=== PATIENT | female | born 1940 | race Caucasian/White ===

== ENCOUNTER 2021-08-26 21:02 | Emergency (ER) | payer MEDICARE, SELFPAY ==
[2021-08-26 21:10] VITALS: BP 156/58; PULSE 93; O2SAT 99
--- NOTE | 2021-08-26 21:23 | ECG_ITS ---
Test Reason : DIZZINESS Blood Pressure : / mmHG Vent. Rate : 092 BPM Atrial Rate : 092 BPM P-R Int : 142 ms QRS Dur : 070 ms QT Int : 344 ms P-R-T Axes : 052 -05 138 degrees QTc Int : 425 ms Artifact in tracing Normal sinus rhythm Anteroseptal infarct , age undetermined ST & T wave abnormality, consider lateral ischemia Abnormal ECG No previous ECGs available Referred By: Constanza Seay Electronically Signed By:NATIVIDAD GUADALUPE
--- NOTE | 2021-08-26 21:26 | ED.GENADULT ---
HPI - General Adult General Chief complaint: Weakness Stated complaint: weakness/leathargy fever Time Seen by Provider: 08/26/21 21:22 Source: patient, family ( spouse) and EMS Mode of arrival: EMS Limitations: no limitations History of Present Illness HPI narrative: 80-year-old female came in for evaluation of mental status change. This is a 80-year-old female who lives with her partially independent, as per for the past 2 years patient has been declining thought to be secondary to dementia, today patient was complaining of generalized weakness unable to feed herself and becoming lethargic with subjective fever, patient declined headache, no neck pain, no chest pain or shortness of breath , no coughing, no abdominal pain, no nausea, no vomiting, no diarrhea. Patient found to have a fever of 102 by EMS before arrival. Related Data Previous Rx's Medication Instructions Recorded nitrofurantoin 100 mg PO BID #14 cap 08/26/21 monohydrate/macrocrystals 100 mg capsule (Macrobid) Allergies Allergy/AdvReac Type Severity Reaction Status Date / Time No Known Allergies Allergy Verified 08/26/21 21:22 Review of Systems Review of Systems: all other systems are reviewed and are negative Constitutional: Reports as per HPI and Reports no additional constitutional complaints Eyes: Reports as per HPI and Reports no additional eye complaints Reports system reviewed and no additional complaints, except as documented Cardiovascular: Reports as per HPI and Reports no additional cardiovascular complaints Respiratory: Reports as per HPI and Reports no additional respiratory complaints Gastrointestinal: Reports as per HPI and Reports no additional gastrointestinal complaints Genitourinary: Reports no additional female genitourinary complaints Musculoskeletal: Reports no additional musculoskeletal complaints Skin/Breast: Reports system reviewed and no additional complaints, except as docu Psychiatric: Reports no additional psychiatric complaints Endocrine: Reports no additional endocrine complaints Hematologic/Lymphatic: Reports no additional hematologic/lymphatic complaints Allergic/Immunologic: Reports no additional allergic/immunologic complaints Reports system reviewed and no additional complaints, except as documented and Reports Abnormal speech present [facility] Past Medical History Medical History Diabetes Foot pain, bilateral Social History Social History Alcohol intake: never Patient Tobacco Use Status: Former Tobacco user Use of substances other than those prescribed or required for medical reasons: No Advance Directives: No Advance Directives Information Provided: No Physical Exam ED Vital Signs: Vital Signs - 24 hr 08/26/21 21:29 Temperature 101 F H Respiratory Rate 93 H Blood Pressure 147/109 H Pulse Oximetry 97 BMI result Body Mass Index 16.8 vital signs have been reviewed as appeared to be correct. Blood pressure normal. Heart rate normal. Respiration rate normal. Temperature normal. Oxygen saturation normal. Appearance: Alert. Oriented X2 place and person but not time.. No acute distress. Head: Normal external exam. Normocephalic. Atraumatic. No Anderson signs noted. No raccoon eyes noted Eyes: PERRLA. EOMI. Conjunctiva and sclera normal. Eyelids normal. ENT: TM's Normal. Pharynx normal. Uvula midline. Moist mucous membranes. No trismus noted. No drooling noted. No muffled voice noted. Neck: Normal inspection. Neck supple. FROM. No adenopathy. Thyroid Normal. No meningeal signs. No neck mass noted. CVS: Normal heart rate and rhythm. Heart sound normal. No murmurs noted. Pulses normal throughout. Respiratory: No respiratory distress. Painless inspiration. Breath sounds normal. No wheezes/rales/rhonchi noted. Chest nontender. No accessory muscle usage noted or decreased air movement noted. Abdomen: Soft and nontender. Bowel sounds normal in all 4 quadrants. No distention noted. No organomegaly noted. No visible injury noted. Back: No CVA tenderness. Full range of motion noted. Skin: Skin warm and dry. Normal skin color. Normal skin turgor. No rashes/lesions/lacerations noted. Extremities: No lower extremity edema. Extremities exhibit normal range of motion. Extremities nontender. Neuro: Oriented X 2. Cranial nerve exam: II-XII are grossly intact No motor deficit. No sensory deficit. Reflexes normal. Course Course Course Narrative: assessment and plan. 80-year-old female came in for evaluation of worsening of her baseline dementia like symptoms, patient in emergency department is refusing blood workup /X-ray/CT head and becoming uncooperative, who is also claimed to be a healthcare proxy refuse giving the patient any sedation in order to complete the workup, and he would like to take her home, patient is adamant to go home, I had decent conversation with the who is fully understood risk of signing against medical advise without doing a full workup on the patient especially when she has a fever. / patient both want to sign against medical advise. however patient show mild UTI will cover with Macrobid. Medical Decision Making Lab Data Lab results reviewed: Yes I reviewed the patient's lab results. Labs: Lab Results 08/26/21 08/26/21 Range/Units 23:02 23:02 Urine Color YELLOW Urine Appearance HAZY Urine pH 5.5 (5.0-8.0) Ur Specific [place] 1.020 (1.005-1.025) Urine Protein NEG (NEG-TRACE) MG/DL Urine Glucose (UA) >=1000 H (NEG) MG/DL Urine Ketones 5 (NEG) MG/DL Urine Blood TRACE (NEG) Urine Nitrite NEG (NEG) Ur Leukocyte Esterase TRACE H (NEG) Urine RBC 0-2 (0) /HPF Urine WBC 5-9 H (0-4) /HPF Ur Squamous Epith Cells 3+ /LPF Urine Bacteria 3+ /LPF Urine Mucus 4+ /LPF COVID-19 (EMELY) Negative (Negative) COVID-19 Clin Com See Note Discharge Plan Discharge Clinical Impression: Dementia, Acute UTI Patient Disposition: Left Against Medical Advice Instructions: Urinary Tract Infection in Women (ED) Prescriptions: New nitrofurantoin monohyd/m-cryst [Macrobid] 100 mg capsule 100 mg PO BID Qty: 14 0RF Rx Instructions: must administer with a meal/food Referrals: Dilshad Mercedes MD [Primary Care Provider] - 2 days
[2021-08-26 21:29] VITALS: BP 147/109; RESP 15; TEMP 38.3; O2SAT 97; BMI 16.8
[2021-08-26] MEDS: 0.9 % Sodium Chloride 1,000 ML 999 ML IV (23:06)
[2021-08-26 23:19] LABS: Appearance Urine HAZY; Color Urine YELLOW; Glucose Urine UA >=1000 MG/DL (NEG); Leukocyte Esterase Urine TRACE (NEG); Nitrite Urine NEG (NEG); PH 5.5 (5.0-8.0); UACC Culture Trigger YES; Urine Blood TRACE (NEG); Urine Ketones 5 MG/DL (NEG); Urine Protein NEG (NEG-TRACE)
[2021-08-26 23:23] LABS: Bacteria Urine 3+ /LPF; Mucus Urine 4+ /LPF; RBC Urine 0-2 /HPF (0); Squamous Epithelial Cell Urine 3+ /LPF
--- NOTE | 2021-08-26 23:23 | PC.NURSE ---
Patient was being very difficult with blood draw. Patient was screaming at the top of her lungs and attempting to jump out of the bed. Patient was putting staff at risk of needle stick. Phlebotomy called to draw blood.
[2021-08-26 23:26] LABS: COVID-19 Test Negative (Negative); IDNOW Serial# 55D5AD1C
--- NOTE | 2021-08-26 23:33 | PC.NURSE ---
Patient came back from the bathroom and decided that she did not want her blood drawn and wanted to leave. Patient refused to sign registration papers and despite provider explaining what his opinion was. Patient decided she did not want blood work done and the stated that if that was what she wanted to do he was ok with that.
[2021-08-27] MEDS: Nitrofurantoin Monohyd/M-Cryst 100 MG CAPSULE PO (00:15)
== END 2021-08-27 00:14 | disposition left against medical advice (07) ==
PROVIDERS: Emergency Provider Emergency Medicine; PCP Family Medicine
DX: N39.0 Urinary tract infection, site not specified (principal); F03.90 Unspecified dementia, unspecified severity, without behavioral disturbance, psychotic disturbance, mood disturbance, and anxiety; R53.1 Weakness; R50.9 Fever, unspecified; Z20.822 Contact with and (suspected) exposure to COVID-19; E11.9 Type 2 diabetes mellitus without complications
CPT/HCPCS: 81001; 87040; 87086; 87635; 93005; 96360; 99284

== ENCOUNTER 2023-01-22 10:12 | Inpatient (IN) | payer MEDICARE, SELFPAY ==
[2023-01-22] VITALS (7 sets, daily range): BP systolic 96–167; BP diastolic 49–92; PULSE 63–115; RESP 10–20; TEMP 36.2–36.9; O2SAT 92–98; BMI 19.6
--- NOTE | ~2023-01-22 | XR_ITS ---
EXAMINATION: XR ABDOMEN KUB CLINICAL INDICATION: Abdominal distention. COMPARISON: None available. TECHNIQUE: AP view of the abdomen. FINDINGS: Nonspecific gastric dilatation. Slightly prominent gaseous distention of both small and large bowel. Mild amount of stool burden in the right hemicolon and rectum. No acute osseous abnormalities. XR/XR KUB IMPRESSION: Nonspecific gastric dilatation, differential considerations include postprandial state, gastroparesis or gastric outlet obstruction. Slightly prominent gaseous distention of both small and large bowel which could be seen with ileus. Overall, nonobstructive bowel gas pattern of the small and large bowel.
--- NOTE | ~2023-01-22 | CT_ITS ---
EXAMINATION: CT HEAD WITHOUT CONTRAST CLINICAL INFORMATION: Altered mental status and delirium. COMPARISON: None available. TECHNIQUE: Contiguous axial imaging was performed from the skull base to vertex without intravenous administration of contrast. Coronal and sagittal reformatted images were obtained. This CT examination was performed using dose optimization techniques as appropriate, variously including the following: *Automated exposure control *Adjustment of mA and/or kV according to patient size (this includes techniques or standardized protocols for targeted exams where dose is matched to indication/reason for exam; i.e. extremities or head) *Use of iterative reconstruction technique DLP: 734 mGy-cm FINDINGS: There is mild widening of the cortical sulci and associated ventriculomegaly. The lateral ventricles are symmetrical. Mild periventricular microvascular changes. The third and fourth ventricles are in their normal midline position. The basilar and prepontine cisterns are unremarkable. There is no acute intra or extracerebral abnormality. There is no mass effect or midline shift. Sections through the bony calvarium are unremarkable. The orbits are intact. The paranasal sinuses are clear. The mastoid air cells are clear. CT/CT head/brain wo IV con IMPRESSION: No acute intracranial pathology.
--- NOTE | 2023-01-22 10:38 | ECG_ITS ---
Test Reason : AMS Blood Pressure : / mmHG Vent. Rate : 083 BPM Atrial Rate : 083 BPM P-R Int : 156 ms QRS Dur : 070 ms QT Int : 338 ms P-R-T Axes : 070 -27 152 degrees QTc Int : 397 ms Poor data quality, interpretation may be adversely affected Normal sinus rhythm Anterior infarct (cited on or before 26-AUG-2021) Abnormal ECG When compared with ECG of 26-AUG-2021 22:03, No significant change was found Referred By: Francie Alva Electronically Signed By:HAO SHAH
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
[2023-01-22 11:01] LABS: MANUAL DIFF FLAG NO
[2023-01-22 11:07] LABS: Basophils Percent Auto 0.4 % (0-2); Eosinophils Absolute Auto 0.1 X10*3/uL (0.0-0.4); Eosinophils Percent Auto 1.9 % (0-4); Hematocrit 39.4 % (37.0-47.0); Hemoglobin 13.3 g/dl (12.0-16.0); Imm Gran Abs Auto 0.02 X10*3/uL (0.00-0.03); Imm Gran Pct Auto 0.4 % (0.0-0.4); Lymphocytes Absolute Auto 1.1 X10*3/uL (1.2-4.9); Lymphocytes Percent Auto 20.9 % (20-40); Mean Corpuscular HGB Conc 33.8 g/dl (31.0-35.0); Mean Corpuscular Hemoglobin 29.9 pg (27.0-33.0); Mean Corpuscular Volume 88.5 fL (80.0-98.0); Mean Platelet Volume 11.2 fL (9.4-12.3); Monocytes Absolute Auto 0.4 X10*3/uL (0.1-1.2); Monocytes Percent Auto 7.2 % (2-11); Neutrophils Absolute Auto 3.6 x10*3/uL (2.0-8.3); Neutrophils Percent Auto 69.2 % (45-73); Platelet Count 242 X10*3/uL (160-400); Red Blood Count 4.45 X10*6/uL (4.20-5.50); White Blood Count 5.2 X10*3/uL (4.8-10.8)
[2023-01-22] MEDS: ondansetron HCL 4 MG/2 ML VIAL IVPUSH (11:11)
[2023-01-22 11:17] LABS: Ethanol < 10 mg/dL
[2023-01-22 11:19] LABS: Acetaminophen LAB < 17 mcg/mL (<30); Salicylate < 5.0 mg/dL (15-30)
[2023-01-22 11:23] LABS: Alanine Aminotransferase 8 U/L (0-31); Albumin Level 3.8 g/dL (3.5-5.0); Alkaline Phosphatase 76 U/L (39-117); Anion Gap 13 (12-20); Aspartate Amino Transferase 12 U/L (5-31); Bilirubin Direct 0.2 mg/dL (0.0-0.5); Bilirubin Total 0.5 mg/dL (0.0-1.0); Blood Urea Nitrogen 24 mg/dL (9-16); Calcium 9.3 mg/dL (8.4-10.2); Carbon Dioxide 24 mmol/L (22-29); Chloride 103 mmol/L (96-108); Creatinine Clr Calc Pharmacy 42.3; Estimated Glomerular Filt Rate 55; Glucose Random 389 mg/dL (60-115); Potassium 4.6 mmol/L (3.3-5.1); Sodium 135 mmol/L (135-145); Total Protein 7.1 g/dL (6.5-8.0)
[2023-01-22] MEDS: OLANZapine 10 MG VIAL IM (11:52)
--- NOTE | 2023-01-22 12:37 | PC.NURSE ---
pt restless, vomiting, appears confused and paranoid. 10mg zyprexa given to help relax pt to go to CT as she was attempting to jump out of bed, not accepting of redirection for head CT
--- NOTE | 2023-01-22 13:24 | MHC.CM.ED ---
Received case management consult from Dr Alva. Patient was found wandering out of her home. Dr Alva is concerned about patient's safety at home. Work up is still pending. PCP is listed as More Mercedes. Copy of HCP and last PCP office note obtained from [facility]. Spoke with Catalina at [facility]. Elder at Risk was filed today and just assigned to a worker. Dr Alva and Vanna HAWKINS aware. Continue to monitor for d/c needs.
[2023-01-22] MEDS: LORazepam 2 MG/ML VIAL 1 MG IVPUSH (14:12)
--- NOTE | 2023-01-22 15:01 | PC.NURSE ---
spoke with [facility] at 1501
[2023-01-22 15:28] LABS: Appearance Urine Cloudy; Color Urine Yellow; Glucose Urine UA >=1000 mg/dL (Negative); Leukocyte Esterase Urine Moderate (2+) (Negative); Nitrite Urine Negative (Negative); PH 6.5 (5.0-9.0); UMIC TRIGGER UACC YES; Urine Blood Moderate (2+) (Negative); Urine Ketones Trace mg/dL (Negative); Urine Protein Negative (Neg-Trace)
--- NOTE | 2023-01-22 15:41 | MHC.CM.ED ---
DOROTEO received telephone call x2 from Katarina at [facility]. Returned telephone call. Katarina is questioning if a HCP exists, is it invoked, does the patient have capacity and is she able to be interviewed. DOROTEO explained that I have just arrived at [facility] and was able to review medical record for filling layer up. Explained that HCP is on file and it is her Robel Farias, that there is no documentation of invoked HCP or if patient has capacity, but explained that patient is quite altered and an interview may be difficult. DOROTEO then spoke with Dr. Alva. Pt is not yet medically cleared, as her urine is pending. Dr. Alva plans to consult psych for viktor psych admission and capacity. CM will follow for any needs if cleared by psych.
[2023-01-22 15:56] LABS: Bacteria Urine 4+ (None Seen); Hyaline Casts Urine 0-2 /LPF (0-2); RBC Urine >20 /HPF (0-2); UACC Culture Trigger YES; WBC Urine 21-50 /HPF (0-5)
[2023-01-22] MEDS: cefTRIAXone sodium 1 GM in 0.9 % Sodium Chloride 50 ML IV (16:18)
--- NOTE | 2023-01-22 19:56 | PC.NURSE ---
assumed care of pt at 1900 - pt restless on stretcher tremulous to upper extremities unsure if this is patient's baseline. went home so unable to obtain proper history at this time. patient unable to answer questions appropriately. patient cleaned up and linens changed. unable to obtain blood pressure due to movement/tremors. sitter at bedside.
[2023-01-22 20:39] LABS: Amphetamine Screen Urine Not Detected (Not Detect); Barbiturates, Urine Not Detected (Not Detect); Benzodiazepines Screen Urine Not Detected (Not Detect); Cannabinoid Screen Urine Not Detected (Not Detect); Cocaine Screen Urine Not Detected (Not Detect); Fentanyl, urine Not Detected (Not Detect); Opiate Screen Urine Not Detected (Not Detect); Phencyclidine Screen Urine Not Detected (Not Detect)
--- NOTE | 2023-01-22 21:42 | PC.NURSE ---
Addendum entered by Melva Estrada 01/23/23 15:12: edit - ketamine given by ems en route to ED and not given by [facility] RN. Original Note: per care team will reevaluate patient in the morning as patient does not have capacity to participate in full assessment at this time. pt not responding to questions as pt was medicated with xzyprexa and ketamine by previous shift RNs. seeping comfortably on stretcher respirations even and unlabored. not here to obtain history. sitter in place.
--- NOTE | 2023-01-22 21:44 | MHC.CARE ---
Per Nurse Melva, Pt currently is not interviewable due to being asleep. She also has a mild UTI and just started treatment. The Care Team will assess her in the morning .
[2023-01-23 06:40] VITALS: BP 150/77; PULSE 92; TEMP 36.3; O2SAT 93
[2023-01-23 10:49] VITALS: BP 152/72; PULSE 108; RESP 20; O2SAT 93
--- NOTE | 2023-01-23 10:51 | MHC.EDTECH ---
Pt incontinent of urine, cleaned up by this PCT and SHRUTHI Tam. New sheets, linens, and repositioned. Pt resting in bed, call saavedra within reach.
--- NOTE | 2023-01-23 10:55 | PC.NURSE ---
pt remains asleep and unable to awake. pt's ams continues to worsen. PO abx ordered but unable to administer d/t inability to follow directions or safely swallow. Provider notified, IV abx odered. pt voided at this time, assist with washing and changing. pt resting in bed with sitter bedside.
--- NOTE | 2023-01-23 11:11 | PHA.MEDREC ---
Addendum entered by Delgado Johnson 01/23/23 11:14: Patient's spouse confirmed meds. Mentioned that the patient has an issue with their thyroid, but isn't taking anything for it right now. Original Note: Pharmacy Consult ? Medication Reconciliation Pharmacy has completed the medication reconciliation.
[2023-01-23] MEDS: cefTRIAXone sodium 1 GM in 0.9 % Sodium Chloride 50 ML IV (11:15)
--- NOTE | 2023-01-23 12:21 | PC.NURSE ---
pt sleeping, 1:1 at bedside. Visited with hospitalist. Per previous nurse pt has been sleeping all morning and last night, ketamine was given by EMS yesterday. property assessment monitor intact - 113 NSR, 92 O2 RA
[2023-01-23 13:30] VITALS: BP 144/92; PULSE 116; RESP 24; O2SAT 93
--- NOTE | 2023-01-23 13:58 | PC.NURSE ---
report given to floor.
[2023-01-23] MEDS: Dextrose 5 % and 0.45 % NaCl 1,000 ML 100 ML IVCONT (15:29)
--- NOTE | 2023-01-23 15:35 | PC.NURSE ---
IV on L forearm was infiltrated, new IV placed to R forearm. 5%dextrose/0.45%NS running.
--- NOTE | 2023-01-23 16:33 | PM.IMHP ---
History of Present Illness Date of Service: 01/23/23 Chief Complaint: confusion 82 yo female with undiagnosed cognitive impairment, prior UTI not on any? medications and doesn't seem to follow up with her doctor. Has had increasing behavior but also a cycle per her left the house this AM disheveled and unkempt feet covered in stool. She has no signs of trauma. was agitated with EMS and given 120mg ketamine IM en route. In ER initially required a sitter however will has been somnolent for the last shift. Will be admitted to general floor Review of Systems Review of Systems: Unable to obtain [facility] Medical History Diabetes Foot pain, bilateral Social History Alcohol intake: never Patient Tobacco Use Status: Former Tobacco user Smoked in Last 30 Days: No Use of substances other than those prescribed or required for medical reasons: No Advance Directives: Yes Advance Directives on File: Yes Advance Directives Date on File: 01/22/23 Meds Allergies Allergy/AdvReac Type Severity Reaction Status Date / Time No Known Allergies Allergy Verified 08/26/21 21:22 Active Medications: Current Medications Acetaminophen (Acetaminophen 325 Mg Tablet) 650 mg PO Q6H PRN PRN Reason: Pain, Mild (Pain Scale 1-3) Aspirin (Aspirin Enteric Coated 325 Mg Tablet.) 650 mg PO Q8H PRN PRN Reason: Chest Pain Enoxaparin Sodium (Enoxaparin Sodium 40 Mg/0.4 Ml Syringe) 40 mg SUBCUT Q24H [facility] Dextrose/Sodium Chloride (D51/2ns) 1,000 mls @ 100 mls/hr IVCONT .Q10H [facility] Last Admin: 01/23/23 15:29 Dose: 100 mls/hr Ceftriaxone Sodium 1 gm/ (Sodium Chloride) 50 mls @ 100 mls/hr IV Q24H [facility] Ondansetron HCl (Ondansetron Hcl 4 Mg/2 Ml Vial) 4 mg IVPUSH Q8H PRN PRN Reason: Nausea and Vomiting Sodium Chloride (0.9 % Sodium Chloride Flush 3 Ml Syringe) 3 ml IVFLUSH QSHIFT [facility] Home Medications Medication Instructions Recorded Confirmed Last Taken Type aspirin 325 mg tablet,delayed 650 mg PO Q8H PRN Chest Pain 01/23/23 01/23/23 Unknown History release Physical Exam Vital Signs and Narrative: Vital Signs: Last Vital Signs Temp 97.4 F 01/23/23 06:40 Pulse 116 H 01/23/23 13:30 Resp 24 H 01/23/23 13:30 BP 144/92 H 01/23/23 13:30 Pulse Ox 93 01/23/23 13:30 O2 Del Method Room Air 01/23/23 13:30 BMI result Body Mass Index 19.6 Const: Other: Somnolent but arousable Resp: Other: Clear to auscultation bilaterally. No rales rhonchi or wheezes Cardio: Other: No S4; positive S1-S2; no S3 murmurs rubs gallops GI: Other: Soft nontender nondistended normoactive bowel sounds Extrem: Other: No edema bilaterally Results Labs 01/22/23 10:55 01/22/23 10:55 Labs: Laboratory Results - last 24 hr 01/22/23 14:36 Urine Opiates Screen Not Detected Urine Fentanyl Screen Not Detected Ur Barbiturates Screen Not Detected Ur Phencyclidine Scrn Not Detected Ur Amphetamines Screen Not Detected U Benzodiazepines Scrn Not Detected Urine Cocaine Screen Not Detected U Marijuana (THC) Screen Not Detected Assessment and Plan (1) Acute UTI: Status: Acute (2) Metabolic encephalopathy: Status: Acute Plan 82-year-old female found wandering outside her house brought to ER for confusion. Agitated in route given ketamine with good effect. Has remained somnolent but arousable throughout her ER stay. Per staff is essentially advanced dementia as well and no helpful history could be obtained. In the ER urine showed active sediment for which she was given empiric ceftriaxone. She will be admitted to the general medical floor and followed there 1. Metabolic encephalopathy/UTI -continue empiric ceftriaxone -adjust as indicated by culture -follow clinical response to antibiotic therapy -further plans based on forthcoming clinical data Full code Lovenox Patient will require at least 2 midnights going forward of inpatient stay to empirically treat UTI and follow response to same as it relates to metabolic encephalopathy. This cannot be achieved a lesser acute setting Time Spent With Patient Time: Total time managing care of this patient today ____ minutes. Quality Stroke Does the patient have a stroke diagnosis?: No VTE Prior VTE?: No VTE Risk Level:: Medical - moderate - high VTE Device Contraindication: N/A - Device Ordered VTE Drug Contraindication: Treatment Not Indicated
[2023-01-23] MEDS: Enoxaparin Sodium 40 MG/0.4 ML SYRINGE SUBCUT (16:38)
[2023-01-23 16:45] VITALS: BMI 19.6
[2023-01-23 17:00] VITALS: BP 138/76; PULSE 114; RESP 20; TEMP 36; O2SAT 91
[2023-01-23 19:02] VITALS: BP 152/80; PULSE 107; RESP 20; TEMP 36.9; O2SAT 97
[2023-01-24] MEDS: Dextrose 5 % and 0.45 % NaCl 1,000 ML 100 ML IVCONT ×2 (01:50→15:23)
[2023-01-24 02:56] VITALS: BP 170/81; PULSE 103; RESP 18; TEMP 36.6; O2SAT 95
[2023-01-24 08:00] VITALS: BP 151/74; PULSE 111; RESP 18; TEMP 36.6; O2SAT 94
[2023-01-24] MEDS: LORazepam 2 MG/ML VIAL 1 MG IM (10:00)
[2023-01-24] MEDS: Haloperidol Lactate 5 MG/ML VIAL 2.5 MG IM (10:00)
[2023-01-24] MEDS: cefTRIAXone sodium 1 GM in 0.9 % Sodium Chloride 50 ML IV (11:43)
--- NOTE | 2023-01-24 12:51 | HO.PM.IMPN ---
Subjective Subjective Date of Service: 01/24/23 Interval History: No acute issues overnight. Somewhat agitated this morning Review of Systems Unable to obtain Physical Exam Vital Signs: Vital Signs: Last Vital Signs Temp 97.8 F 01/24/23 08:00 Pulse 111 H 01/24/23 08:00 Resp 18 01/24/23 08:00 BP 151/74 H 01/24/23 08:00 Pulse Ox 94 01/24/23 08:00 O2 Del Method Nasal Cannula 01/24/23 08:00 O2 Flow Rate 2 01/24/23 08:00 BMI result Body Mass Index 19.6 Const: Other: Somnolent but arousable Resp: Other: Clear to auscultation bilaterally. No rales rhonchi or wheezes Cardio: Other: No S4; positive S1-S2; no S3 murmurs rubs gallops GI: Other: Soft nontender nondistended normoactive bowel sounds Extrem: Other: No edema bilaterally Objective Data Active Medications Acetaminophen (Acetaminophen 325 Mg Tablet) 650 mg PO Q6H PRN PRN Reason: Pain, Mild (Pain Scale 1-3) Aspirin (Aspirin Enteric Coated 325 Mg Tablet.Dr) 650 mg PO Q8H PRN PRN Reason: Chest Pain Enoxaparin Sodium (Enoxaparin Sodium 40 Mg/0.4 Ml Syringe) 40 mg SUBCUT Q24H [facility] Last Admin: 01/23/23 16:38 Dose: 40 mg Documented By: ALON Dextrose/Sodium Chloride (D51/2ns) 1,000 mls @ 100 mls/hr IVCONT .Q10H [facility] Last Infusion: 01/24/23 12:33 Dose: 0 mls/hr Documented By: ISIS Ceftriaxone Sodium 1 gm/ (Sodium Chloride) 50 mls @ 100 mls/hr IV Q24H [facility] Last Infusion: 01/24/23 12:37 Dose: 0 mls/hr Documented By: ISIS Ondansetron HCl (Ondansetron Hcl 4 Mg/2 Ml Vial) 4 mg IVPUSH Q8H PRN PRN Reason: Nausea and Vomiting Sodium Chloride (0.9 % Sodium Chloride Flush 3 Ml Syringe) 3 ml IVFLUSH QSHIFT [facility] Last Admin: 01/24/23 07:17 Dose: Not Given Documented By: ISIS Non-Admin Reason: IV Running Labs 01/22/23 10:55 01/22/23 10:55 Microbiology Microbiology Results: Microbiology 01/22/23 Unknown Urine Culture - Preliminary Urine clean catch - Urine perez top Culture in progress. Assessment and Plan (1) Metabolic encephalopathy: Status: Acute (2) Acute UTI: Status: Acute (3) Dementia: Status: Acute Plan 82-year-old female found wandering outside her house brought to ER for confusion. Agitated in route given ketamine with good effect. Has remained somnolent but arousable throughout her ER stay. Per staff is essentially advanced dementia as well and no helpful history could be obtained. In the ER urine showed active sediment for which she was given empiric ceftriaxone. She will be admitted to the general medical floor and followed there 1. Metabolic encephalopathy/UTI -continue empiric ceftriaxone -adjust as indicated by culture -needed Haldol/Ativan this a.m. per behavior -start Seroquel later this stay -further plans based on forthcoming clinical data Full code [place] Will need ongoing hospitalization to rule out causes of S emboli apathy and safe placement Time Spent With Patient Time: Total time managing care of this patient today ____ minutes. Quality Stroke Does the patient have a stroke diagnosis?: No VTE Prior VTE?: No VTE Risk Level:: Medical - moderate - high VTE Device Contraindication: N/A - Device Ordered VTE Drug Contraindication: Treatment Not Indicated
--- NOTE | 2023-01-24 13:01 | MHC.CM.PN ---
Addendum entered by Annette English 01/24/23 13:12: ROSEMARY REPORTS THE PT TYPICALLY PREFERS TO BE CALLED [facility] (HER MIDDLE NAME) Original Note: PT CONFUSED AND UNABLE TO PROVIDE INFORMATION FOR HEALTH AND WELLNESS COORDINATOR CM CALLED PTS , ROSEMARY [phone] HE REPORTS THE PT LIVES AT HOME WITH HIM AND HE PROVIDES 24/7 CARE HE SAYS SHE HAS HAD INCREASED DIFFICULTY WITH [facility] FOR A FEW YEARS, BUT IT GOT MUCH WORSE OVER THE LAST FEW MONTHS HE REPORTS SHE HAS HAD NO FORMAL SERVICES SHE HAS A CANE BUT RARELY AGREES TO USE IT HCP ON FILE PCP: MICHEAL WALKER IMM DELIVERED ROSEMARY REPORTS HE FEELS HE MAY NEED SOME HELP CARING FOR THE PT AT HOME HE IS AWARE A [facility] REFERRAL HAS BEEN MADE HE IS ALSO AWARE A REFERRAL WAS SENT TO [facility] [place] FS TO DETERMINE IF PT IS ELIGIBLE FOR [place] DCP: HOME WITH [facility] AND FS REFERRALS AND RESUMPTION OF 24/7 CARE ROSEMARY WILL TRANSPORT
[2023-01-24] MEDS: Enoxaparin Sodium 40 MG/0.4 ML SYRINGE SUBCUT (15:49)
[2023-01-24 20:00] VITALS: BP 130/63; PULSE 99; RESP 17; TEMP 36.6; O2SAT 93
[2023-01-25] MEDS: Dextrose 5 % and 0.45 % NaCl 1,000 ML 100 ML IVCONT ×2 (01:12→10:14)
[2023-01-25 04:00] VITALS: BP 149/70; PULSE 111; RESP 17; TEMP 36.4; O2SAT 93
[2023-01-25] MEDS: cefTRIAXone sodium 1 GM in 0.9 % Sodium Chloride 50 ML IV (10:14)
[2023-01-25] MEDS: Haloperidol Lactate 5 MG/ML VIAL 2.5 MG IM (11:44)
--- NOTE | 2023-01-25 11:45 | HO.PM.IMPN ---
Subjective Subjective Date of Service: 01/25/23 Interval History: Quiet this a.m. however agitated towards end of morning. Review of Systems Unable to obtain Physical Exam Vital Signs: Vital Signs: Last Vital Signs Temp 97.6 F 01/25/23 04:00 Pulse 111 H 01/25/23 04:00 Resp 17 01/25/23 04:00 BP 149/70 H 01/25/23 04:00 Pulse Ox 93 01/25/23 04:00 O2 Del Method Nasal Cannula 01/25/23 04:00 O2 Flow Rate 2 01/25/23 04:00 BMI result Body Mass Index 19.6 Const: Other: Somnolent but arousable Resp: Other: Clear to auscultation bilaterally. No rales rhonchi or wheezes Cardio: Other: No S4; positive S1-S2; no S3 murmurs rubs gallops GI: Other: Soft nontender nondistended normoactive bowel sounds Extrem: Other: No edema bilaterally Objective Data Active Medications Acetaminophen (Acetaminophen 325 Mg Tablet) 650 mg PO Q6H PRN PRN Reason: Pain, Mild (Pain Scale 1-3) Aspirin (Aspirin Enteric Coated 325 Mg Tablet.Dr) 650 mg PO Q8H PRN PRN Reason: Chest Pain Enoxaparin Sodium (Enoxaparin Sodium 40 Mg/0.4 Ml Syringe) 40 mg SUBCUT Q24H [facility] Last Admin: 01/24/23 15:49 Dose: 40 mg Documented By: ISIS Dextrose/Sodium Chloride (D51/2ns) 1,000 mls @ 100 mls/hr IVCONT .Q10H [facility] Last Admin: 01/25/23 10:14 Dose: 100 mls/hr Documented By: BRIANA Ceftriaxone Sodium 1 gm/ (Sodium Chloride) 50 mls @ 100 mls/hr IV Q24H [facility] Last Infusion: 01/25/23 10:52 Dose: 0 mls/hr Documented By: BRIANA Ondansetron HCl (Ondansetron Hcl 4 Mg/2 Ml Vial) 4 mg IVPUSH Q8H PRN PRN Reason: Nausea and Vomiting Quetiapine Fumarate (Quetiapine Fumarate 25 Mg Tablet) 12.5 mg PO BID [facility] Sodium Chloride (0.9 % Sodium Chloride Flush 3 Ml Syringe) 3 ml IVFLUSH QSHIFT [facility] Last Admin: 01/25/23 07:00 Dose: Not Given Documented By: BRIANA Non-Admin Reason: IV Running Labs 01/22/23 10:55 01/22/23 10:55 Microbiology Microbiology Results: Microbiology 01/22/23 Unknown Urine Culture - Final Urine clean catch - Urine perez top Escherichia coli Strep agalactiae (Grp B) Assessment and Plan (1) Metabolic encephalopathy: Status: Acute (2) Acute UTI: Status: Acute Plan 82-year-old female found wandering outside her house brought to ER for confusion. Agitated in route given ketamine with good effect. Has remained somnolent but arousable throughout her ER stay. Per staff is essentially advanced dementia as well and no helpful history could be obtained. In the ER urine showed active sediment for which she was given empiric ceftriaxone. She will be admitted to the general medical floor and followed there 1. Metabolic encephalopathy/UTI -continue empiric ceftriaxone -adjust as indicated by culture -needed Haldol/Ativan this a.m. per behavior -start Seroquel 12.5 b.i.d. with 25 q.6 p.r.n. 2. E coli UTI (pansensitive) -ceftriaxone (2).. Switch to Ceftin when appropriate -check blood cultures Full code Lovenox Will need ongoing hospitalization to Time Spent With Patient Time: Total time managing care of this patient today ____ minutes. Quality Stroke Does the patient have a stroke diagnosis?: No VTE Prior VTE?: No VTE Risk Level:: Medical - moderate - high VTE Device Contraindication: N/A - Device Ordered VTE Drug Contraindication: Treatment Not Indicated
[2023-01-25] MEDS: Enoxaparin Sodium 40 MG/0.4 ML SYRINGE SUBCUT (13:46)
[2023-01-25 15:38] VITALS: BP 154/80; PULSE 103; RESP 18; TEMP 36.6; O2SAT 94
[2023-01-25 17:07] LABS: Alanine Aminotransferase 12 U/L (0-31); Albumin Level 3.2 g/dL (3.5-5.0); Alkaline Phosphatase 78 U/L (39-117); Anion Gap 16 (12-20); Aspartate Amino Transferase 18 U/L (5-31); Bilirubin Total 0.6 mg/dL (0.0-1.0); Blood Urea Nitrogen 38 mg/dL (9-16); Calcium 8.8 mg/dL (8.4-10.2); Carbon Dioxide 22 mmol/L (22-29); Chloride 108 mmol/L (96-108); Creatinine Clr Calc Pharmacy 25.7; Estimated Glomerular Filt Rate 31; Glucose Fasting 624 mg/dL (60-99); Potassium 4.1 mmol/L (3.3-5.1); Sodium 142 mmol/L (135-145); Total Protein 6.3 g/dL (6.5-8.0)
[2023-01-25 17:15] LABS: Glucose, Whole Blood 539 mg/dL (60-115)
[2023-01-25] MEDS: Insulin Lispro 100 UNIT/ML 3 ML VIAL 15 UNIT SUBCUT ×2 (17:18→18:16)
[2023-01-25 18:04] LABS: Glucose, Whole Blood 576 mg/dL (60-115)
[2023-01-25 19:20] LABS: Glucose, Whole Blood 407 mg/dL (60-115)
[2023-01-25 19:45] VITALS: BP 120/61; PULSE 90; RESP 17; TEMP 36.4; O2SAT 96
[2023-01-25] MEDS: QUEtiapine Fumarate 25 MG TABLET 12.5 MG PO (20:00)
[2023-01-25 23:59] VITALS: BP 134/70; PULSE 93; RESP 18; TEMP 36.3; O2SAT 95
[2023-01-26] MEDS: 0.9 % Sodium Chloride Flush 3 ML SYRINGE IVFLUSH ×3 (01:19→16:19)
[2023-01-26 05:53] LABS: Glucose, Whole Blood 287 mg/dL (60-115)
[2023-01-26 06:46] LABS: Glucose, Whole Blood 293 mg/dL (60-115)
[2023-01-26 07:27] LABS: Glucose, Whole Blood 329 mg/dL (60-115)
[2023-01-26 07:33] VITALS: BP 139/76; PULSE 100; RESP 22; TEMP 36.2; O2SAT 91
[2023-01-26 09:32] LABS: MANUAL DIFF FLAG NO
[2023-01-26 09:36] LABS: Basophils Percent Auto 0.1 % (0-2); Eosinophils Percent Auto 0.1 % (0-4); Hematocrit 45.8 % (37.0-47.0); Hemoglobin 15.1 g/dl (12.0-16.0); Imm Gran Abs Auto 0.05 X10*3/uL (0.00-0.03); Imm Gran Pct Auto 0.4 % (0.0-0.4); Lymphocytes Absolute Auto 0.8 X10*3/uL (1.2-4.9); Lymphocytes Percent Auto 5.7 % (20-40); Mean Corpuscular Hemoglobin 29.5 pg (27.0-33.0); Mean Corpuscular Volume 89.5 fL (80.0-98.0); Mean Platelet Volume 12.1 fL (9.4-12.3); Monocytes Absolute Auto 0.7 X10*3/uL (0.1-1.2); Monocytes Percent Auto 4.8 % (2-11); Neutrophils Percent Auto 88.9 % (45-73); Platelet Count 218 X10*3/uL (160-400); Red Blood Count 5.12 X10*6/uL (4.20-5.50); Red Cell Distribution Width 12.3 % (11.0-16.0); White Blood Count 13.5 X10*3/uL (4.8-10.8)
[2023-01-26 09:48] LABS: Estimated Average Glucose 283 mg/dL; Hemoglobin A1c % 11.5 % (<6.0)
[2023-01-26 10:04] LABS: Alanine Aminotransferase 15 U/L (0-31); Albumin Level 3.4 g/dL (3.5-5.0); Alkaline Phosphatase 82 U/L (39-117); Anion Gap 18 (12-20); Aspartate Amino Transferase 19 U/L (5-31); Bilirubin Total 0.7 mg/dL (0.0-1.0); Blood Urea Nitrogen 53 mg/dL (9-16); Calcium 9.3 mg/dL (8.4-10.2); Carbon Dioxide 21 mmol/L (22-29); Chloride 111 mmol/L (96-108); Creatinine Clr Calc Pharmacy 18.1; Estimated Glomerular Filt Rate 21; Potassium 3.9 mmol/L (3.3-5.1); Sodium 146 mmol/L (135-145); Total Protein 6.9 g/dL (6.5-8.0)
[2023-01-26 10:05] LABS: Anion Gap 19 (12-20); Blood Urea Nitrogen 52 mg/dL (9-16); Calcium 8.2 mg/dL (8.4-10.2); Carbon Dioxide 21 mmol/L (22-29); Chloride 111 mmol/L (96-108); Creatinine Clr Calc Pharmacy 18.4; Estimated Glomerular Filt Rate 21; Glucose Random 358 mg/dL (60-115); Potassium 3.9 mmol/L (3.3-5.1); Sodium 147 mmol/L (135-145)
[2023-01-26 10:07] LABS: Glucose Fasting 359 mg/dL (60-99)
[2023-01-26 10:18] LABS: Thyroid Stimulating Hormone 8.76 uIU/mL (0.32-4.0)
[2023-01-26] MEDS: Insulin Lispro 100 UNIT/ML 3 ML VIAL SUBCUT ×2 (10:37→18:31)
[2023-01-26 11:32] LABS: Glucose, Whole Blood 333 mg/dL (60-115)
--- NOTE | 2023-01-26 12:10 | MHC.CLN ---
NUTRITION CONSULT FOR QUESTION WEIGHT LOSS. REVIEW OF WEIGHT HX SHOWS WEIGHT 08/26/21=54.68 KG. CURRENT WEIGHT=58.4 KG. NO SIGNIFICANT WEIGHT CHANGE X APPROX 17 MONTHS. SKIN WITH NO CURRENT ISSUES NOTED. MONITOR FOR DIET ADVANCEMENT AND SKIN INTEGRITY.
[2023-01-26] MEDS: cefTRIAXone sodium 1 GM in 0.9 % Sodium Chloride 50 ML IV (12:29)
--- NOTE | 2023-01-26 13:15 | MHC.CM.PN ---
EMR REVIEWED AND PER MD ROUNDS, PT IS NOT MEDICALLY CLEARED FOR DC (ENCEPHOLOPATHY, ACUTE UTI, NEW ONET DM) THIS CM LEFT MESSAGE X 2 FOR S/O TO RETURN CALL TO DISCUSS DC PLANNING. AWAITING RETURN CALL. PER MD, S/O PLAN IS TO CONTINUE FULL TREATMENT AND HOME WHEN MEDICALLY CLEARED FOR 24/7 CARE.
[2023-01-26] MEDS: Enoxaparin Sodium 40 MG/0.4 ML SYRINGE SUBCUT (14:11)
--- NOTE | 2023-01-26 14:31 | MHC.SL.SWA ---
Speech Pathologist Impression: Risk of aspiration, oropharyngeal dysphagia Risk of Aspiration Due to: Reduced Cognition Dysphasia Diet Status: Continue NPO Liquid Consistency and Strategies for Safe Swallow: Liquid Intake Recommendation: NPO Solid Food Consistency: Dietary Recommendations: NPO Additional Modifications to Solid Foods: Pt spitting out PO. Absent swallow trigger. Recommend continue NPO at this time d/t mental status. Notified RN on floor, sent [place] message to MD and RD. RAMP SERVICE AGENT to re-evaluate tomorrow morning. Oral Medication Intake: NPO Please contact the pharmacy regarding appropriate crushable or liquid drug formulations that are available whenever modified delivery is recommended. Supervision While Eating and Drinking for Safe Swallow: PO with RAMP SERVICE AGENT Swallowing Recommended Treatments: Compens. Strategy Educat. Recommendation for Speech: Inpatient Speech Therapy Comment: RAMP SERVICE AGENT to re-evaluate tomorrow. Microbiology Lab Technician Clinican/Clinical Fellow: No Supervisory Statement: I have reviewed and agree with the student/clinical fellow's documentation: N/A Speech Language Pathologist: Sanna Landry M.A., CCC-RAMP SERVICE AGENT
[2023-01-26 15:31] VITALS: BP 150/69; PULSE 94; RESP 24; TEMP 36.2; O2SAT 93
--- NOTE | 2023-01-26 15:39 | HO.PM.IMPN ---
Subjective Subjective Date of Service: 01/27/23 Interval History: resting in bed unable to provide meaningful history due to underlying dementia,incoherent speech, moving all 4 extremities, is NPO, speech attempted swallow eval but patient had no swallow trigger speech recommend NPO due to mental status. Review of Systems unable to obtain review of system due to mental status Physical Exam Vital Signs: Vital Signs: Last Vital Signs Temp 97.2 F 01/26/23 07:33 Pulse 100 01/26/23 07:33 Resp 22 H 01/26/23 07:33 BP 139/76 01/26/23 07:33 Pulse Ox 91 L 01/26/23 07:33 O2 Del Method Room Air 01/26/23 07:33 O2 Flow Rate 3 01/25/23 23:59 BMI result Body Mass Index 19.6 Const: Other: General resting comfortably in no acute distress. Neck no JVD. CVS regular rate rhythm, Respiratory lungs clear to auscultation, no respiratory distress, no wheeze, no rhonchi. Gastrointestinal abdomen soft, nontender, bowel sounds audible Extremities no edema. Neuro moving all 4 extremity, speech garbled Skin no rash Objective Data Active Medications Acetaminophen (Acetaminophen 325 Mg Tablet) 650 mg PO Q6H PRN PRN Reason: Pain, Mild (Pain Scale 1-3) Aspirin (Aspirin Enteric Coated 325 Mg Tablet.Dr) 650 mg PO Q8H PRN PRN Reason: Chest Pain Dextrose (Dextrose 50 % 25 Gm/50 Ml Syringe) 25 gm IVPUSH Q15M PRN; Protocol PRN Reason: per Hypoglycemia Standing Ord. Enoxaparin Sodium (Enoxaparin Sodium 40 Mg/0.4 Ml Syringe) 40 mg SUBCUT Q24H [facility] Last Admin: 01/26/23 14:11 Dose: 40 mg Documented By: JARED Glucose (Glucose Gel 15 Gm Gel..Gram.) 15 gm PO Q15M PRN; Protocol PRN Reason: per Hypoglycemia Standing Ord. Ceftriaxone Sodium 1 gm/ (Sodium Chloride) 50 mls @ 100 mls/hr IV Q24H [facility] Last Infusion: 01/26/23 13:01 Dose: 0 mls/hr Documented By: JARED Insulin Human Lispro (Insulin Lispro 100 Unit/Ml 3 Ml Vial) 0 unit SUBCUT QIDACHS [facility]; Protocol Last Admin: 01/26/23 14:13 Dose: Not Given Documented By: JARED Non-Admin Reason: Physician Held Med Ondansetron HCl (Ondansetron Hcl 4 Mg/2 Ml Vial) 4 mg IVPUSH Q8H PRN PRN Reason: Nausea and Vomiting Quetiapine Fumarate (Quetiapine Fumarate 25 Mg Tablet) 12.5 mg PO BID [facility] Last Admin: 01/26/23 12:30 Dose: Not Given Documented By: JARED Non-Admin Reason: Physician Approved Sodium Chloride (0.9 % Sodium Chloride Flush 3 Ml Syringe) 3 ml IVFLUSH QSHIFT [facility] Last Admin: 01/26/23 10:39 Dose: 3 ml Documented By: JARED Labs 01/26/23 09:28 01/26/23 09:28 Labs: Laboratory Results - last 24 hr 01/25/23 01/25/23 01/25/23 15:43 17:11 18:00 MCV MCH MCHC RDW Plt Count MPV Immature Gran % (Auto) Neut % (Auto) Lymph % (Auto) [place] % (Auto) Eos % (Auto) Baso % (Auto) Lymph # (Auto) [place] # (Auto) Eos # (Auto) Baso # (Auto) Abs Immat Gran (auto) Absolute Neuts (auto) Absolute Nucleated RBC Nucleated RBC % (auto) Anion Gap 16 Estim Creat Clear Calc 25.7 Estimated GFR 31 POC Glucose 539 H* 576 H* Random Glucose Fasting Glucose 624 H* Estimat Average Glucose Hemoglobin A1c % Calcium 8.8 Total Bilirubin 0.6 AST 18 ALT 12 Alkaline Phosphatase 78 Total Protein 6.3 L Albumin 3.2 L TSH 01/25/23 01/26/23 01/26/23 19:15 05:50 06:42 MCV MCH MCHC RDW Plt Count MPV Immature Gran % (Auto) Neut % (Auto) Lymph % (Auto) [place] % (Auto) Eos % (Auto) Baso % (Auto) Lymph # (Auto) [place] # (Auto) Eos # (Auto) Baso # (Auto) Abs Immat Gran (auto) Absolute Neuts (auto) Absolute Nucleated RBC Nucleated RBC % (auto) Anion Gap Estim Creat Clear Calc Estimated GFR POC Glucose 407 H* 287 H 293 H Random Glucose Fasting Glucose Estimat Average Glucose Hemoglobin A1c % Calcium Total Bilirubin AST ALT Alkaline Phosphatase Total Protein Albumin TSH 01/26/23 01/26/23 01/26/23 07:11 09:28 09:28 MCV 89.5 MCH 29.5 MCHC 33.0 RDW 12.3 Plt Count 218 MPV 12.1 Immature Gran % (Auto) 0.4 Neut % (Auto) 88.9 H Lymph % (Auto) 5.7 L [place] % (Auto) 4.8 Eos % (Auto) 0.1 Baso % (Auto) 0.1 Lymph # (Auto) 0.8 L [place] # (Auto) 0.7 Eos # (Auto) 0.0 Baso # (Auto) 0.0 Abs Immat Gran (auto) 0.05 H Absolute Neuts (auto) 12.0 H Absolute Nucleated RBC 0.000 Nucleated RBC % (auto) 0.0 Anion Gap 18 Estim Creat Clear Calc 18.1 Estimated GFR 21 POC Glucose 329 H Random Glucose Fasting Glucose 359 H* Estimat Average Glucose Hemoglobin A1c % Calcium 9.3 Total Bilirubin 0.7 AST 19 ALT 15 Alkaline Phosphatase 82 Total Protein 6.9 Albumin 3.4 L TSH 01/26/23 01/26/23 01/26/23 09:28 09:28 11:28 MCV MCH MCHC RDW Plt Count MPV Immature Gran % (Auto) Neut % (Auto) Lymph % (Auto) [place] % (Auto) Eos % (Auto) Baso % (Auto) Lymph # (Auto) [place] # (Auto) Eos # (Auto) Baso # (Auto) Abs Immat Gran (auto) Absolute Neuts (auto) Absolute Nucleated RBC Nucleated RBC % (auto) Anion Gap 19 Estim Creat Clear Calc 18.4 Estimated GFR 21 POC Glucose 333 H Random Glucose 358 H* Fasting Glucose Estimat Average Glucose 283 Hemoglobin A1c % 11.5 H Calcium 8.2 L D Total Bilirubin AST ALT Alkaline Phosphatase Total Protein Albumin TSH 8.76 H Microbiology Microbiology Results: Microbiology 01/25/23 12:10 Blood Culture - Preliminary Blood - Venous No growth after 24 hours. 01/25/23 12:10 Blood Culture - Preliminary Blood - Venous No growth after 24 hours. Assessment and Plan (1) Hypernatremia: Status: Acute (2) MAURICIO (acute kidney injury): Status: Acute (3) Metabolic encephalopathy: Status: Acute (4) Dementia: Status: Acute (5) Acute UTI: Status: Acute Plan 82-year-old female found wandering outside her house brought to ER for confusion.? Agitated in route given ketamine with good effect.? Has remained somnolent but arousable throughout her ER stay.? Per staff is essentially advanced dementia as well and no helpful history could be obtained.? In the ER urine showed active sediment for which she was given empiric ceftriaxone.? She will be admitted to the general medical floor and followed there 1. Metabolic encephalopathy underlying undiagnosed dementia, spoke with patient's significant other Lazaro PYLEEb [phone], he informed the patient has been noted to to have gradually progressing memory impairment that has gotten worsened in last couple months and her speech has become incoherent and garbled along with decrease hearing, at baseline patient ambulates with walker. patient also has hypothyroidism currently not taking medication was also prediabetic but never to treatment. CT head showed no acute intracranial pathology. likely symptoms worsen due to UTI and hypothyroidism untreated will treat UTI , add Synthroid and follow clinical course. 2. E coli UTI (pansensitive) -ceftriaxone D3, blood cultures negative , continue IV since unable to take by mouth 3. hypothyroidism TSH elevated will place on IV levothyroxine 25 mg since patient unable to tolerate po. 4. acute on chronic kidney disease stage 3 patient status post nephrectomy at age 12, noted to have worsening renal function will place on IV fluids 100 mL/hour, obtain Nephro consult 5. diabetes mellitus type 2 noted to have elevated blood sugars in 300s hemoglobin A1c greater than 11 patient not on treatment since patient NPO will place on correction dose insulin q.6 hours 6. unspecified dementia/ dysphagia as per significant other noted to have worsening dementia, with garbled speech, recently needing direction to home bathroom or other places, wandering, requiring constant reminders dementia noticed 3 years ago and has been gradually worsening, now notedto have significant dysphagia, healthcare proxy wishes G-tube placement will consult General surgery no behavioral issues will hold off on Ativan and Haldol 5. 7. hypernatremia likely due to poor by mouth intake with increased IV fluid to 100 mL/hour obtain Nephro consult.follow bmp Full code Lovenox Will need ongoing hospitalization due to dysphagia, advanced dementia is NPO Will obtain surgical consult for G-tube placement as per request of patient healthcare proxy. Time Spent With Patient Time: Total time managing care of this patient today ____ minutes. Quality Stroke Does the patient have a stroke diagnosis?: No VTE Prior VTE?: No VTE Risk Level:: Medical - moderate - high VTE Device Contraindication: N/A - Device Ordered VTE Drug Contraindication: Treatment Not Indicated
[2023-01-26] MEDS: Dextrose 5 % and Lactated Ring 1,000 ML 100 ML IVCONT (16:14)
--- NOTE | 2023-01-26 16:49 | PM.CNGS ---
History of Present Illness Consult details Consult date: 01/26/23 Narrative: 82F afmitted three days ago for worsening confusion. She was from home and was brought to the ED because of cognitive decline, poor self hygiene and confusion. She seems to have acceleration of her dementia. She was uncooperative on admission. She is a diabetic and her HgA1C was 11. She apparently has not seen any physician in a long time. Review of Systems Review of Systems: Yes Unobtainable due to mental status PMFSH Past Medical History Medical History Diabetes Foot pain, bilateral Social History Social History Household Members: Spouse Housing: House Unable to assess alcohol history related to: Unable to respond Alcohol intake: never Patient Tobacco Use Status: Former Tobacco user Smoked in Last 30 Days: No Use of substances other than those prescribed or required for medical reasons: Unknown Currently Displaying Signs/Symptoms of Drug Intoxication Withdrawal: No Advance Directives: Yes Advance Directives on File: Yes Advance Directives Date on File: 01/22/23 Patient : No Poor oral hygiene: Yes service: No Meds Allergies Allergy/AdvReac Type Severity Reaction Status Date / Time No Known Allergies Allergy Verified 01/24/23 00:05 Active Medications: Current Medications Acetaminophen (Acetaminophen 325 Mg Tablet) 650 mg PO Q6H PRN PRN Reason: Pain, Mild (Pain Scale 1-3) Aspirin (Aspirin Enteric Coated 325 Mg Tablet.Dr) 650 mg PO Q8H PRN PRN Reason: Chest Pain Dextrose (Dextrose 50 % 25 Gm/50 Ml Syringe) 25 gm IVPUSH Q15M PRN; Protocol PRN Reason: per Hypoglycemia Standing Ord. Enoxaparin Sodium (Enoxaparin Sodium 40 Mg/0.4 Ml Syringe) 40 mg SUBCUT Q24H [facility] Last Admin: 01/26/23 14:11 Dose: 40 mg Glucose (Glucose Gel 15 Gm Gel..Gram.) 15 gm PO Q15M PRN; Protocol PRN Reason: per Hypoglycemia Standing Ord. Ceftriaxone Sodium 1 gm/ (Sodium Chloride) 50 mls @ 100 mls/hr IV Q24H [facility] Last Infusion: 01/26/23 13:01 Dose: Infused Dextrose/Lactated Ringer's (D5lr) 1,000 mls @ 100 mls/hr IVCONT .Q10H [facility] Last Admin: 01/26/23 16:14 Dose: 100 mls/hr Insulin Human Lispro (Insulin Lispro 100 Unit/Ml 3 Ml Vial) 0 unit SUBCUT QIDACHS [facility]; Protocol Last Admin: 01/26/23 14:13 Dose: Not Given Levothyroxine Sodium (Levothyroxine Sodium 100 Mcg/5 Ml Vial) 25 mcg IVPUSH DAILY@0600 [facility] Ondansetron HCl (Ondansetron Hcl 4 Mg/2 Ml Vial) 4 mg IVPUSH Q8H PRN PRN Reason: Nausea and Vomiting Sodium Chloride (0.9 % Sodium Chloride Flush 3 Ml Syringe) 3 ml IVFLUSH QSHIFT [facility] Last Admin: 01/26/23 16:19 Dose: 3 ml Home Medications Medication Instructions Recorded Confirmed Last Taken Type aspirin 325 mg tablet,delayed 650 mg PO Q8H PRN Chest Pain 01/23/23 01/23/23 Unknown History release Physical Exam Vital Signs: Vital Signs: Last Vital Signs Temp 97.2 F 01/26/23 15:31 Pulse 94 01/26/23 15:31 Resp 24 H 01/26/23 15:31 BP 150/69 H 01/26/23 15:31 Pulse Ox 93 01/26/23 15:31 O2 Del Method Room Air 01/26/23 15:31 O2 Flow Rate 3 01/25/23 23:59 BMI result Body Mass Index 19.6 Const: Other: not communicative, appears drowsy General: no acute distress Resp: Effort & Inspection: normal respiratory effort Cardio: Rate: regular rate GI: Other: no abdominal scars Palpation (GI): Soft to palpation, not firm, nontender and no guarding Results Labs 01/26/23 09:28 01/26/23 09:28 Labs: Abnormal lab results 01/25/23 01/25/23 01/25/23 Range/Units 15:43 17:11 18:00 WBC (4.8-10.8) X10*3/uL Neut % (Auto) (45-73) % Lymph % (Auto) (20-40) % Lymph # (Auto) (1.2-4.9) X10*3/uL Abs Immat Gran (auto) (0.00-0.03) X10*3/uL Absolute Neuts (auto) (2.0-8.3) x10*3/uL Sodium (135-145) mmol/L Chloride (96-108) mmol/L Carbon Dioxide (22-29) mmol/L BUN 38 H (9-16) mg/dL Creatinine 1.61 H (0.5-1.4) mg/dL POC Glucose 539 H* 576 H* (60-115) mg/dL Random Glucose (60-115) mg/dL Fasting Glucose 624 H* (60-99) mg/dL Hemoglobin A1c % (<6.0) % Calcium (8.4-10.2) mg/dL Total Protein 6.3 L (6.5-8.0) g/dL Albumin 3.2 L (3.5-5.0) g/dL TSH (0.32-4.0) uIU/mL 01/25/23 01/26/23 01/26/23 Range/Units 19:15 05:50 06:42 WBC (4.8-10.8) X10*3/uL Neut % (Auto) (45-73) % Lymph % (Auto) (20-40) % Lymph # (Auto) (1.2-4.9) X10*3/uL Abs Immat Gran (auto) (0.00-0.03) X10*3/uL Absolute Neuts (auto) (2.0-8.3) x10*3/uL Sodium (135-145) mmol/L Chloride (96-108) mmol/L Carbon Dioxide (22-29) mmol/L BUN (9-16) mg/dL Creatinine (0.5-1.4) mg/dL POC Glucose 407 H* 287 H 293 H (60-115) mg/dL Random Glucose (60-115) mg/dL Fasting Glucose (60-99) mg/dL Hemoglobin A1c % (<6.0) % Calcium (8.4-10.2) mg/dL Total Protein (6.5-8.0) g/dL Albumin (3.5-5.0) g/dL TSH (0.32-4.0) uIU/mL 01/26/23 01/26/23 01/26/23 Range/Units 07:11 09:28 09:28 WBC 13.5 H (4.8-10.8) X10*3/uL Neut % (Auto) 88.9 H (45-73) % Lymph % (Auto) 5.7 L (20-40) % Lymph # (Auto) 0.8 L (1.2-4.9) X10*3/uL Abs Immat Gran (auto) 0.05 H (0.00-0.03) X10*3/uL Absolute Neuts (auto) 12.0 H (2.0-8.3) x10*3/uL Sodium 146 H (135-145) mmol/L Chloride 111 H (96-108) mmol/L Carbon Dioxide 21 L (22-29) mmol/L BUN 53 H (9-16) mg/dL Creatinine 2.28 H (0.5-1.4) mg/dL POC Glucose 329 H (60-115) mg/dL Random Glucose (60-115) mg/dL Fasting Glucose 359 H* (60-99) mg/dL Hemoglobin A1c % (<6.0) % Calcium (8.4-10.2) mg/dL Total Protein (6.5-8.0) g/dL Albumin 3.4 L (3.5-5.0) g/dL TSH (0.32-4.0) uIU/mL 01/26/23 01/26/23 01/26/23 Range/Units 09:28 09:28 11:28 WBC (4.8-10.8) X10*3/uL Neut % (Auto) (45-73) % Lymph % (Auto) (20-40) % Lymph # (Auto) (1.2-4.9) X10*3/uL Abs Immat Gran (auto) (0.00-0.03) X10*3/uL Absolute Neuts (auto) (2.0-8.3) x10*3/uL Sodium 147 H (135-145) mmol/L Chloride 111 H (96-108) mmol/L Carbon Dioxide 21 L (22-29) mmol/L BUN 52 H (9-16) mg/dL Creatinine 2.25 H (0.5-1.4) mg/dL POC Glucose 333 H (60-115) mg/dL Random Glucose 358 H* (60-115) mg/dL Fasting Glucose (60-99) mg/dL Hemoglobin A1c % 11.5 H (<6.0) % Calcium 8.2 L D (8.4-10.2) mg/dL Total Protein (6.5-8.0) g/dL Albumin (3.5-5.0) g/dL TSH 8.76 H (0.32-4.0) uIU/mL Short CBC 01/26/23 Range/Units 09:28 WBC 13.5 H (4.8-10.8) X10*3/uL Hgb 15.1 (12.0-16.0) g/dl Hct 45.8 (37.0-47.0) % Plt Count 218 (160-400) X10*3/uL BMP 01/25/23 01/26/23 01/26/23 15:43 09: 09:28 Sodium 142 146 H 147 H Potassium 4.1 3.9 3.9 Chloride 108 111 H 111 H Carbon Dioxide 22 21 L 21 L BUN 38 H 53 H 52 H Creatinine 1.61 H 2.28 H 2.25 H Calcium 8.8 9.3 8.2 L D Liver Function 01/25/23 01/26/23 Range/Units 15:43 09:28 Total Bilirubin 0.6 0.7 (0.0-1.0) mg/dL AST 18 19 (5-31) U/L ALT 12 15 (0-31) U/L Alkaline Phosphatase 78 82 (39-117) U/L Albumin 3.2 L 3.4 L (3.5-5.0) g/dL Urine 01/22/23 Range/Units 14:36 Urine Color Yellow Urine Appearance Cloudy Urine pH 6.5 (5.0-9.0) Ur Specific [place] 1.020 (1.005-1.025) Urine Protein Negative (Neg-Trace) mg/dL Urine Glucose (UA) >=1000 H (Negative) mg/dL All other labs normal. Laboratory Results WBC 13.5 X10*3/uL (4.8-10.8) H 01/26/23 09:28 RBC 5.12 X10*6/uL (4.20-5.50) 01/26/23 09:28 Hgb 15.1 g/dl (12.0-16.0) 01/26/23 09: Hct 45.8 % (37.0-47.0) 01/26/23 09: MCV 89.5 fL (80.0-98.0) 01/26/23 09: MCH 29.5 pg (27.0-33.0) 01/26/23 09: MCHC 33.0 g/dl (31.0-35.0) 01/26/23 09: RDW 12.3 % (11.0-16.0) 01/26/23 09: Plt Count 218 X10*3/uL (160-400) 01/26/23 09: MPV 12.1 fL (9.4-12.3) 01/26/23 09: Immature Gran % (Auto) 0.4 % (0.0-0.4) 01/26/23 09: Neut % (Auto) 88.9 % (45-73) H 01/26/23 09: Lymph % (Auto) 5.7 % (20-40) L 01/26/23 09: [place] % (Auto) 4.8 % (2-11) 01/26/23 09: Eos % (Auto) 0.1 % (0-4) 01/26/23 09: Baso % (Auto) 0.1 % (0-2) 01/26/23 09: Lymph # (Auto) 0.8 X10*3/uL (1.2-4.9) L 01/26/23 09: [place] # (Auto) 0.7 X10*3/uL (0.1-1.2) 01/26/23 09: Eos # (Auto) 0.0 X10*3/uL (0.0-0.4) 01/26/23 09: Baso # (Auto) 0.0 X10*3/uL (0.0-0.2) 01/26/23 09: Abs Immat Gran (auto) 0.05 X10*3/uL (0.00-0.03) H 01/26/23 09:28 Absolute Neuts (auto) 12.0 x10*3/uL (2.0-8.3) H 01/26/23 09:28 Absolute Nucleated RBC 0.000 X10*3/uL (0.0-0.012) 01/26/23 09:28 Nucleated RBC % (auto) 0.0 /100WBC (0.0-0.2) 01/26/23 09:28 Sodium 146 mmol/L (135-145) H 01/26/23 09:28 Sodium 147 mmol/L (135-145) H 01/26/23 09:28 Potassium 3.9 mmol/L (3.3-5.1) 01/26/23 09:28 Potassium 3.9 mmol/L (3.3-5.1) 01/26/23 09:28 Chloride 111 mmol/L (96-108) H 01/26/23 09:28 Chloride 111 mmol/L (96-108) H 01/26/23 09:28 Carbon Dioxide 21 mmol/L (22-29) L 01/26/23 09:28 Carbon Dioxide 21 mmol/L (22-29) L 01/26/23 09:28 Anion Gap 18 (12-20) 01/26/23 09:28 Anion Gap 19 (12-20) 01/26/23 09:28 BUN 52 mg/dL (9-16) H 01/26/23 09:28 BUN 53 mg/dL (9-16) H 01/26/23 09:28 Creatinine 2.25 mg/dL (0.5-1.4) H 01/26/23 09:28 Creatinine 2.28 mg/dL (0.5-1.4) H 01/26/23 09:28 Estim Creat Clear Calc 18.1 01/26/23 09:28 Estim Creat Clear Calc 18.4 01/26/23 09:28 Estimated GFR 21 01/26/23 09:28 Estimated GFR 21 01/26/23 09:28 POC Glucose 333 mg/dL (60-115) H 01/26/23 11:28 Random Glucose 358 mg/dL (60-115) H* 01/26/23 09:28 Fasting Glucose 359 mg/dL (60-99) H* 01/26/23 09:28 Estimat Average Glucose 283 mg/dL 01/26/23 09:28 Hemoglobin A1c % 11.5 % (<6.0) H 01/26/23 09:28 Calcium 8.2 mg/dL (8.4-10.2) L D 01/26/23 09:28 Calcium 9.3 mg/dL (8.4-10.2) 01/26/23 09:28 Magnesium 2.0 mg/dL (1.6-2.6) 01/22/23 10:55 Total Bilirubin 0.7 mg/dL (0.0-1.0) 01/26/23 09:28 Direct Bilirubin 0.2 mg/dL (0.0-0.5) 01/22/23 10:55 AST 19 U/L (5-31) 01/26/23 09:28 ALT 15 U/L (0-31) 01/26/23 09:28 Alkaline Phosphatase 82 U/L (39-117) 01/26/23 09:28 Total Creatine Kinase 72 U/L (26-140) 01/22/23 10:56 Total Protein 6.9 g/dL (6.5-8.0) 01/26/23 09:28 Albumin 3.4 g/dL (3.5-5.0) L 01/26/23 09:28 TSH 8.76 uIU/mL (0.32-4.0) H 01/26/23 09:28 Urine Color Yellow 01/22/23 14:36 Urine Appearance Cloudy 01/22/23 14:36 Urine pH 6.5 (5.0-9.0) 01/22/23 14:36 Ur Specific [place] 1.020 (1.005-1.025) 01/22/23 14:36 Urine Protein Negative mg/dL (Neg-Trace) 01/22/23 14:36 Urine Glucose (UA) >=1000 mg/dL (Negative) H 01/22/23 14:36 Urine Ketones Trace mg/dL (Negative) 01/22/23 14:36 Urine Blood Moderate (2+) (Negative) H 01/22/23 14:36 Urine Nitrite Negative (Negative) 01/22/23 14:36 Ur Leukocyte Esterase Moderate (2+) (Negative) H 01/22/23 14:36 Urine RBC >20 /HPF (0-2) H 01/22/23 14:36 Urine WBC 21-50 /HPF (0-5) H 01/22/23 14:36 Ur Squamous Epith Cells 6-10 /HPF (0-2) 01/22/23 14:36 Urine Bacteria 4+ (None Seen) 01/22/23 14:36 Hyaline Casts 0-2 /LPF (0-2) 01/22/23 14:36 Salicylates < 5.0 mg/dL (15-30) L 01/22/23 10:56 Urine Opiates Screen Not Detected (Not Detect) 01/22/23 14:36 Urine Fentanyl Screen Not Detected (Not Detect) 01/22/23 14:36 Acetaminophen < 17 mcg/mL (<30) 01/22/23 10:56 Ur Barbiturates Screen Not Detected (Not Detect) 01/22/23 14:36 Ur Phencyclidine Scrn Not Detected (Not Detect) 01/22/23 14:36 Ur Amphetamines Screen Not Detected (Not Detect) 01/22/23 14:36 U Benzodiazepines Scrn Not Detected (Not Detect) 01/22/23 14:36 Urine Cocaine Screen Not Detected (Not Detect) 01/22/23 14:36 U Marijuana (THC) Screen Not Detected (Not Detect) 01/22/23 14:36 Ethyl Alcohol < 10 mg/dL 01/22/23 10:[address] 01/22/23 11:39 IMPRESSION: No acute intracranial pathology. KUB X-Ray 01/23/23 17:55 IMPRESSION: Nonspecific gastric dilatation, differential considerations include postprandial state, gastroparesis or gastric outlet obstruction. Slightly prominent gaseous distention of both small and large bowel which could be seen with ileus. Overall, nonobstructive bowel gas pattern of the small and large bowel. Assessment and Plan (1) Dementia: Qualifiers: Dementia behavioral or psychological symptom: with agitation Dementia severity: unspecified severity Dementia type: unspecified type Qualified Code(s): F03.911 - Unspecified dementia, unspecified severity, with agitation Status: Acute She appears to have worsening dementia, with poor oral intake. Subsequently, she has developed some metabolic encephalopathy with poor blood sugar control. I have been asked to place a PEG tube for nutrition. I will discuss this with her HCP. Her metabolic derangements should be corrected for now and her blood sugars better controlled. I will follow along while she is in the hospital. Time Spent With Patient Time: Total time managing care of this patient today ____ minutes. Procedures Date of Service Date of Service: 01/29/23
[2023-01-26 18:00] LABS: Glucose, Whole Blood 355 mg/dL (60-115)
[2023-01-26] MEDS: Acetaminophen 1,000 MG/100 ML PIGGYBACK 400 MG IV (18:36)
[2023-01-26 20:00] VITALS: BP 120/60; PULSE 78; RESP 16; TEMP 36; O2SAT 92
[2023-01-27 00:13] LABS: Glucose, Whole Blood 274 mg/dL (60-115)
[2023-01-27] MEDS: Insulin Lispro 100 UNIT/ML 3 ML VIAL SUBCUT ×5 (00:15→21:47)
[2023-01-27] MEDS: Dextrose 5 % and Lactated Ring 1,000 ML 100 ML IVCONT (01:13)
[2023-01-27 04:00] VITALS: BP 138/95; PULSE 102; RESP 18; TEMP 36.2; O2SAT 97
[2023-01-27 05:18] LABS: MANUAL DIFF FLAG NO
[2023-01-27 05:30] LABS: Basophils Percent Auto 0.1 % (0-2); Eosinophils Absolute Auto 0.2 X10*3/uL (0.0-0.4); Eosinophils Percent Auto 1.6 % (0-4); Hemoglobin 15.1 g/dl (12.0-16.0); Imm Gran Abs Auto 0.05 X10*3/uL (0.00-0.03); Imm Gran Pct Auto 0.4 % (0.0-0.4); Lymphocytes Absolute Auto 0.9 X10*3/uL (1.2-4.9); Lymphocytes Percent Auto 6.5 % (20-40); Mean Corpuscular HGB Conc 32.1 g/dl (31.0-35.0); Mean Corpuscular Hemoglobin 29.2 pg (27.0-33.0); Mean Corpuscular Volume 90.7 fL (80.0-98.0); Mean Platelet Volume 12.1 fL (9.4-12.3); Monocytes Percent Auto 7.1 % (2-11); Neutrophils Absolute Auto 11.3 x10*3/uL (2.0-8.3); Neutrophils Percent Auto 84.3 % (45-73); Platelet Count 196 X10*3/uL (160-400); Red Blood Count 5.18 X10*6/uL (4.20-5.50); Red Cell Distribution Width 12.5 % (11.0-16.0); White Blood Count 13.5 X10*3/uL (4.8-10.8)
[2023-01-27 05:47] LABS: Alanine Aminotransferase 18 U/L (0-31); Albumin Level 3.2 g/dL (3.5-5.0); Alkaline Phosphatase 83 U/L (39-117); Anion Gap 19 (12-20); Aspartate Amino Transferase 18 U/L (5-31); Bilirubin Total 0.5 mg/dL (0.0-1.0); Blood Urea Nitrogen 55 mg/dL (9-16); Calcium 8.8 mg/dL (8.4-10.2); Carbon Dioxide 20 mmol/L (22-29); Chloride 113 mmol/L (96-108); Creatinine Clr Calc Pharmacy 17.6; Estimated Glomerular Filt Rate 20; Potassium 3.6 mmol/L (3.3-5.1); Sodium 148 mmol/L (135-145); Total Protein 6.5 g/dL (6.5-8.0)
[2023-01-27 05:51] LABS: Glucose Fasting 427 mg/dL (60-99)
[2023-01-27] MEDS: Levothyroxine Sodium 100 MCG/5 ML VIAL 25 MCG IVPUSH (06:07)
[2023-01-27 07:26] VITALS: BP 126/58; PULSE 104; RESP 22; TEMP 36.4; O2SAT 97
[2023-01-27 07:38] LABS: Glucose, Whole Blood 369 mg/dL (60-115)
[2023-01-27] MEDS: Enoxaparin Sodium 30 MG/0.3 ML SYRINGE SUBCUT (09:03)
--- NOTE | 2023-01-27 10:11 | P.CONNP_ITS ---
History of Present Illness Reason for Consult Consult date: 01/28/23 Chief Complaint Chief complaint: altered mental status History of Present Illness Narrative: 82 yo female with undiagnosed cognitive impairment, prior UTI not on any? med ications and doesn't seem to follow up with her doctor. Has had increasing behavior but also a cycle per her left the house this AM disheveled and unkempt feet covered in stool. She has no signs of trauma. was agitated with EMS and given 120mg ketamine IM en route.? In ER initially required a sitter however will has been somnolent for the last shift Review of Systems Review of Systems Yes Unobtainable due to mental status PMFSH Past Medical History Medical History Diabetes Foot pain, bilateral Social History Social History Household Members: Spouse Housing: House Unable to assess alcohol history related to: Unable to respond Alcohol intake: never Patient Tobacco Use Status: Former Tobacco user Smoked in Last 30 Days: No Use of substances other than those prescribed or required for medical reasons: Unknown Currently Displaying Signs/Symptoms of Drug Intoxication Withdrawal: No Advance Directives: Yes Advance Directives on File: Yes Advance Directives Date on File: 01/22/23 Patient : No Poor oral hygiene: Yes service: No Meds Allergies Allergy/AdvReac Type Severity Reaction Status Date / Time No Known Allergies Allergy Verified 01/24/23 00:05 Active Medications: Current Medications Acetaminophen (Acetaminophen 325 Mg Tablet) 650 mg PO Q6H PRN PRN Reason: Pain, Mild (Pain Scale 1-3) Aspirin (Aspirin Enteric Coated 325 Mg Tablet.Dr) 650 mg PO Q8H PRN PRN Reason: Chest Pain Dextrose (Dextrose 50 % 25 Gm/50 Ml Syringe) 25 gm IVPUSH Q15M PRN; Protocol PRN Reason: per Hypoglycemia Standing Ord. Enoxaparin Sodium (Enoxaparin Sodium 30 Mg/0.3 Ml Syringe) 30 mg SUBCUT Q24H [facility] Last Admin: 01/27/23 09:03 Dose: 30 mg Glucose (Glucose Gel 15 Gm Gel..Gram.) 15 gm PO Q15M PRN; Protocol PRN Reason: per Hypoglycemia Standing Ord. Ceftriaxone Sodium 1 gm/ (Sodium Chloride) 50 mls @ 100 mls/hr IV Q24H [facility] Last Infusion: 01/26/23 13:01 Dose: Infused Dextrose/Lactated Ringer's (D5lr) 1,000 mls @ 100 mls/hr IVCONT .Q10H [facility] Last Admin: 01/27/23 01:13 Dose: 100 mls/hr Insulin Human Lispro (Insulin Lispro 100 Unit/Ml 3 Ml Vial) 0 unit SUBCUT Q6H [facility]; Protocol Last Admin: 01/27/23 06:07 Dose: 10 unit Levothyroxine Sodium (Levothyroxine Sodium 100 Mcg/5 Ml Vial) 25 mcg IVPUSH DAILY@0600 [facility] Last Admin: 01/27/23 06:07 Dose: 25 mcg Ondansetron HCl (Ondansetron Hcl 4 Mg/2 Ml Vial) 4 mg IVPUSH Q8H PRN PRN Reason: Nausea and Vomiting Sodium Chloride (0.9 % Sodium Chloride Flush 3 Ml Syringe) 3 ml IVFLUSH QSHIFT [facility] Last Admin: 01/27/23 09:03 Dose: Not Given Home Medications Medication Instructions Recorded Confirmed Last Taken Type aspirin 325 mg tablet,delayed 650 mg PO Q8H PRN Chest Pain 01/23/23 01/23/23 Unknown History release Physical Exam Vital Signs: Last Vital Signs Temp 97.5 F 01/27/23 07:26 Pulse 104 H 01/27/23 07:26 Resp 22 H 01/27/23 07:26 BP 126/58 L 01/27/23 07:26 Pulse Ox 97 01/27/23 07:26 O2 Del Method Nasal Cannula 01/27/23 07:26 O2 Flow Rate 2 01/27/23 07:26 BMI result Body Mass Index 19.6 Confused. Restless. Mucosa dry. Lungs was scattered rhonchi. Heart S1-S2 heard with a gallop. Abdomen soft. Ex Results Lab Results 01/27/23 05:02 01/27/23 05:02 Lab results: Chemistry 01/25/23 01/26/23 01/26/23 15:43 09: 09:28 Sodium 142 146 H 147 H Potassium 4.1 3.9 3.9 Carbon Dioxide 22 21 L 21 L BUN 38 H 53 H 52 H Creatinine 1.61 H 2.28 H 2.25 H Calcium 8.8 9.3 8.2 L D 01/27/23 05:02 Sodium 148 H Potassium 3.6 Carbon Dioxide 20 L BUN 55 H Creatinine 2.35 H Calcium 8.8 D Hematology 01/26/23 01/27/23 09:28 05:02 WBC 13.5 H 13.5 H Hgb 15.1 15.1 Plt Count 218 196 Assessment and Plan (1) MAURICIO (acute kidney injury): Status: Acute (2) Hypernatremia: Status: Acute Plan elderly woman with dementia with hypernatremia and acute kidney injury. Hypernatremia due to free water deficit. Acute kidney due to volume depletion. She might have sustained tubular injury as well. No evidence of obstruction thus far. recommendations. Keep intake more than output. Or hypertension. Next item no need for any diuretics. Continue to avoid nephrotoxins. With volume resuscitation renal function should return to baseline. If renal function does not improve over a renal ultrasonogram. Concur with current medical management Time Spent With Patient Time: Total time managing care of this patient today ____ minutes. Procedures Date of Service Date of Service: 01/28/23
--- NOTE | 2023-01-27 10:20 | P.PNGS_ITS ---
Subjective Subjective Date of Service: 01/27/23 Interval history: mental status the same still confused blood sugars not well controlled Physical Exam Vital Signs: Vital Signs: Last Vital Signs Temp 97.5 F 01/27/23 07:26 Pulse 104 H 01/27/23 07:26 Resp 22 H 01/27/23 07:26 BP 126/58 L 01/27/23 07:26 Pulse Ox 97 01/27/23 07:26 O2 Del Method Nasal Cannula 01/27/23 07:26 O2 Flow Rate 2 01/27/23 07:26 BMI result Body Mass Index 19.6 Const: Other: confused Resp: Effort & Inspection: normal respiratory effort Cardio: Rate: tachycardic GI: Palpation (GI): Soft to palpation, not firm, nontender and no guarding Objective Data Active Medications Acetaminophen (Acetaminophen 325 Mg Tablet) 650 mg PO Q6H PRN PRN Reason: Pain, Mild (Pain Scale 1-3) Aspirin (Aspirin Enteric Coated 325 Mg Tablet.Dr) 650 mg PO Q8H PRN PRN Reason: Chest Pain Dextrose (Dextrose 50 % 25 Gm/50 Ml Syringe) 25 gm IVPUSH Q15M PRN; Protocol PRN Reason: per Hypoglycemia Standing Ord. Enoxaparin Sodium (Enoxaparin Sodium 30 Mg/0.3 Ml Syringe) 30 mg SUBCUT Q24H [facility] Last Admin: 01/27/23 09:03 Dose: 30 mg Documented By: LAYO Glucose (Glucose Gel 15 Gm Gel..Gram.) 15 gm PO Q15M PRN; Protocol PRN Reason: per Hypoglycemia Standing Ord. Ceftriaxone Sodium 1 gm/ (Sodium Chloride) 50 mls @ 100 mls/hr IV Q24H [facility] Last Infusion: 01/26/23 13:01 Dose: 0 mls/hr Documented By: JARED Dextrose/Lactated Ringer's (D5lr) 1,000 mls @ 100 mls/hr IVCONT .Q10H [facility] Last Admin: 01/27/23 01:13 Dose: 100 mls/hr Documented By: CAITY Insulin Human Lispro (Insulin Lispro 100 Unit/Ml 3 Ml Vial) 0 unit SUBCUT Q6H [facility]; Protocol Last Admin: 01/27/23 06:07 Dose: 10 unit Documented By: CAITY Levothyroxine Sodium (Levothyroxine Sodium 100 Mcg/5 Ml Vial) 25 mcg IVPUSH DAILY@0600 [facility] Last Admin: 01/27/23 06:07 Dose: 25 mcg Documented By: CAITY Ondansetron HCl (Ondansetron Hcl 4 Mg/2 Ml Vial) 4 mg IVPUSH Q8H PRN PRN Reason: Nausea and Vomiting Sodium Chloride (0.9 % Sodium Chloride Flush 3 Ml Syringe) 3 ml IVFLUSH QSHIFT [facility] Last Admin: 01/27/23 09:03 Dose: Not Given Documented By: LAYO Non-Admin Reason: IV Running Labs 01/27/23 05:02 01/27/23 05:02 Labs: Laboratory Results - last 24 hr 01/26/23 01/26/23 01/27/23 11:28 17:55 00:07 MCV MCH MCHC RDW Plt Count MPV Immature Gran % (Auto) Neut % (Auto) Lymph % (Auto) [place] % (Auto) Eos % (Auto) Baso % (Auto) Lymph # (Auto) [place] # (Auto) Eos # (Auto) Baso # (Auto) Abs Immat Gran (auto) Absolute Neuts (auto) Absolute Nucleated RBC Nucleated RBC % (auto) Anion Gap Estim Creat Clear Calc Estimated GFR POC Glucose 333 H 355 H* 274 H Fasting Glucose Calcium Total Bilirubin AST ALT Alkaline Phosphatase Total Protein Albumin 01/27/23 01/27/23 01/27/23 05:02 05:02 07:24 MCV 90.7 MCH 29.2 MCHC 32.1 RDW 12.5 Plt Count 196 MPV 12.1 Immature Gran % (Auto) 0.4 Neut % (Auto) 84.3 H Lymph % (Auto) 6.5 L [place] % (Auto) 7.1 Eos % (Auto) 1.6 Baso % (Auto) 0.1 Lymph # (Auto) 0.9 L [place] # (Auto) 1.0 Eos # (Auto) 0.2 Baso # (Auto) 0.0 Abs Immat Gran (auto) 0.05 H Absolute Neuts (auto) 11.3 H Absolute Nucleated RBC 0.000 Nucleated RBC % (auto) 0.0 Anion Gap 19 Estim Creat Clear Calc 17.6 Estimated GFR 20 POC Glucose 369 H* Fasting Glucose 427 H* Calcium 8.8 D Total Bilirubin 0.5 AST 18 ALT 18 Alkaline Phosphatase 83 Total Protein 6.5 Albumin 3.2 L Microbiology Microbiology Results: Microbiology 01/25/23 12:10 Blood Culture - Preliminary Blood - Venous No growth after 24 hours. 01/25/23 12:10 Blood Culture - Preliminary Blood - Venous No growth after 24 hours. Procedures Date of Service Date of Service: 01/27/23 Progress Note: A&P Assessment and plan (1) Dementia: Status: Acute Assessment and Plan: for PEG tube placement blood sugar still not well controlled however creatinine still elevated await stabilization of metabolic derangements prior to peg tube (2) Metabolic encephalopathy: Status: Acute Time Spent With Patient Time: Total time managing care of this patient today ____ minutes. Quality Stroke Does the patient have a stroke diagnosis?: No VTE Prior VTE?: No VTE Risk Level:: Medical - moderate - high VTE Device Contraindication: N/A - Device Ordered VTE Drug Contraindication: Treatment Not Indicated
[2023-01-27] MEDS: cefTRIAXone sodium 1 GM in 0.9 % Sodium Chloride 50 ML IV (10:48)
[2023-01-27] MEDS: Sodium Chloride 0.45 % 1,000 ML 125 ML IVCONT ×2 (10:48→19:29)
[2023-01-27 11:21] LABS: Glucose, Whole Blood 307 mg/dL (60-115)
[2023-01-27] MEDS: Valproic Acid (as Sodium Salt) 250 MG in Dextrose 5 % 50 ML 52.5 MG IV (12:09)
--- NOTE | 2023-01-27 12:35 | HO.PM.IMPN ---
Subjective Subjective Date of Service: 01/27/23 Interval History: Patient remains confused unable to provide meaningful history sitter at bedside. Review of Systems Unable to obtain due to dementia. Physical Exam Vital Signs: Vital Signs: Last Vital Signs Temp 97.5 F 01/27/23 07:26 Pulse 104 H 01/27/23 07:26 Resp 22 H 01/27/23 07:26 BP 126/58 L 01/27/23 07:26 Pulse Ox 97 01/27/23 07:26 O2 Del Method Nasal Cannula 01/27/23 07:26 O2 Flow Rate 2 01/27/23 07:26 BMI result Body Mass Index 19.6 Const: Other: General? resting comfortably in no acute distress.? Neck? no JVD. CVS? regular rate rhythm, Respiratory lungs clear to auscultation, no respiratory distress, no wheeze, no rhonchi. Gastrointestinal abdomen soft, non tender, bowel sounds audible Extremities no edema. Neuro? moving all 4 extremity, speech? garbled Skin no rash Objective Data Active Medications Acetaminophen (Acetaminophen 325 Mg Tablet) 650 mg PO Q6H PRN PRN Reason: Pain, Mild (Pain Scale 1-3) Aspirin (Aspirin Enteric Coated 325 Mg Tablet.) 650 mg PO Q8H PRN PRN Reason: Chest Pain Dextrose (Dextrose 50 % 25 Gm/50 Ml Syringe) 25 gm IVPUSH Q15M PRN; Protocol PRN Reason: per Hypoglycemia Standing Ord. Enoxaparin Sodium (Enoxaparin Sodium 30 Mg/0.3 Ml Syringe) 30 mg SUBCUT Q24H COUNT INCLUDES THE [facility] Last Admin: 01/27/23 09:03 Dose: 30 mg Documented By: LAYO Glucose (Glucose Gel 15 Gm Gel..Gram.) 15 gm PO Q15M PRN; Protocol PRN Reason: per Hypoglycemia Standing Ord. Ceftriaxone Sodium 1 gm/ (Sodium Chloride) 50 mls @ 100 mls/hr IV Q24H COUNT INCLUDES THE [facility] Last Infusion: 01/27/23 11:25 Dose: 0 mls/hr Documented By: LAYO Sodium Chloride (Sodium Chloride 0.45 %) 1,000 mls @ 125 mls/hr IVCONT .Q8H COUNT INCLUDES THE [facility] Last Admin: 01/27/23 10:48 Dose: 125 mls/hr Documented By: LAYO Valproic Acid 250 mg/ Dextrose 52.5 mls @ 52.5 mls/hr IV Q12H COUNT INCLUDES THE [facility] Last Admin: 01/27/23 12:09 Dose: 52.5 mls/hr Documented By: LAYO Insulin Human Lispro (Insulin Lispro 100 Unit/Ml 3 Ml Vial) 0 unit SUBCUT Q6H COUNT INCLUDES THE [facility]; Protocol Last Admin: 01/27/23 12:26 Dose: 8 unit Documented By: LAYO Levothyroxine Sodium (Levothyroxine Sodium 100 Mcg/5 Ml Vial) 25 mcg IVPUSH DAILY@0600 COUNT INCLUDES THE [facility] Last Admin: 01/27/23 06:07 Dose: 25 mcg Documented By: CAITY Ondansetron HCl (Ondansetron Hcl 4 Mg/2 Ml Vial) 4 mg IVPUSH Q8H PRN PRN Reason: Nausea and Vomiting Sodium Chloride (0.9 % Sodium Chloride Flush 3 Ml Syringe) 3 ml IVFLUSH QSHIFT COUNT INCLUDES THE [facility] Last Admin: 01/27/23 09:03 Dose: Not Given Documented By: LAYO Non-Admin Reason: IV Running Labs 01/27/23 05:02 01/27/23 05:02 Labs: Laboratory Results - last 24 hr 01/26/23 01/27/23 01/27/23 17:55 00:07 05:02 MCV 90.7 MCH 29.2 MCHC 32.1 RDW 12.5 Plt Count 196 MPV 12.1 Immature Gran % (Auto) 0.4 Neut % (Auto) 84.3 H Lymph % (Auto) 6.5 L Yates % (Auto) 7.1 Eos % (Auto) 1.6 Baso % (Auto) 0.1 Lymph # (Auto) 0.9 L Yates # (Auto) 1.0 Eos # (Auto) 0.2 Baso # (Auto) 0.0 Abs Immat Gran (auto) 0.05 H Absolute Neuts (auto) 11.3 H Absolute Nucleated RBC 0.000 Nucleated RBC % (auto) 0.0 Anion Gap Estim Creat Clear Calc Estimated GFR POC Glucose 355 H* 274 H Fasting Glucose Calcium Total Bilirubin AST ALT Alkaline Phosphatase Total Protein Albumin 01/27/23 01/27/23 01/27/23 05:02 07:24 11:16 MCV MCH MCHC RDW Plt Count MPV Immature Gran % (Auto) Neut % (Auto) Lymph % (Auto) Yates % (Auto) Eos % (Auto) Baso % (Auto) Lymph # (Auto) Yates # (Auto) Eos # (Auto) Baso # (Auto) Abs Immat Gran (auto) Absolute Neuts (auto) Absolute Nucleated RBC Nucleated RBC % (auto) Anion Gap 19 Estim Creat Clear Calc 17.6 Estimated GFR 20 POC Glucose 369 H* 307 H Fasting Glucose 427 H* Calcium 8.8 D Total Bilirubin 0.5 AST 18 ALT 18 Alkaline Phosphatase 83 Total Protein 6.5 Albumin 3.2 L Microbiology Microbiology Results: Microbiology 01/25/23 12:10 Blood Culture - Preliminary Blood - Venous No growth after 24 hours. 01/25/23 12:10 Blood Culture - Preliminary Blood - Venous No growth after 24 hours. Assessment and Plan (1) Hypernatremia: Status: Acute (2) MAURICIO (acute kidney injury): Status: Acute (3) Metabolic encephalopathy: Status: Acute (4) Dementia: Status: Acute (5) Acute UTI: Status: Acute Plan 82-year-old female found wandering outside her house brought to ER for confusion.? Agitated in route given ketamine with good effect.? Has remained somnolent but arousable throughout her ER stay.? Per staff is essentially advanced dementia as well and no helpful history could be obtained.? In the ER urine showed active sediment for which she was given empiric ceftriaxone.? She will be admitted to the general medical floor and followed there 1. Metabolic encephalopathy underlying undiagnosed dementia, gradually progressing has gotten worsened in last few months, speech has become incoherent and garbled along with decrease hearing, at baseline patient ambulates with walker. Likely worsening symptoms due to UTI and hypothyroidism Continue IV antibiotic for UTI and IV levothyroxine , follow clinical course Will add Depakote for behavioral issues 2. E coli UTI (pansensitive) -ceftriaxone D4, blood cultures negative , continue IV since unable to take by mouth 3. hypothyroidism TSH elevated , on IV levothyroxine 25 mg , recheck TSH in 6 weeks 4. acute on chronic kidney disease stage 3 patient status post nephrectomy at age 12, case discussed with Nephrology will place patient on half-normal saline at 100 mL/hour if no improvement in renal function obtain renal ultrasound to rule out obstruction 5. diabetes mellitus type 2 noted to have elevated blood sugars in 300s hemoglobin A1c greater than 11 patient not on treatment ,on correction dose insulin q.6 hours, changed to q.i.d. a.c. 6. dysphagia seen by speech therapy today they recommend pureed and thin liquid diet , earlier patient was evaluated by General surgery for G-tube placement since patient was made NPO, significant other/healthcare proxy agreed for G-tube placement, follow-patient closely for by mouth intake, if tolerated by mouth will cancel G-tube 7. hypernatremia likely due to poor by mouth intake , continue IV fluid to 100 mL/hour follow bmp. Full code Lovenox Will need ongoing hospitalization due to dysphagia, advanced dementia possible need for G-tube placement as per request of patient healthcare proxy. Time Spent With Patient Time: Total time managing care of this patient today ____ minutes. Quality Stroke Does the patient have a stroke diagnosis?: No VTE Prior VTE?: No VTE Risk Level:: Medical - moderate - high VTE Device Contraindication: N/A - Device Ordered VTE Drug Contraindication: Treatment Not Indicated
[2023-01-27 13:34] VITALS: PULSE 90; TEMP 36.4; O2SAT 94
[2023-01-27 15:26] VITALS: BP 139/79; PULSE 98; RESP 22; TEMP 36.5; O2SAT 95
[2023-01-27 16:33] LABS: Glucose, Whole Blood 220 mg/dL (60-115)
--- NOTE | 2023-01-27 17:29 | PC.NURSE ---
patient rtefused to swallow her main meal but did swallow pudding with ALEKSANDRA Aguillon frequently reminding pt to swallow,patient also able to swallow sips of apple juice,patient positioned upright ,aspiration precautions followed
[2023-01-27 19:15] VITALS: BP 118/61; PULSE 94; RESP 20; TEMP 36.6; O2SAT 99
[2023-01-27 19:29] LABS: Glucose, Whole Blood 304 mg/dL (60-115)
[2023-01-27] MEDS: Valproic Acid (as Sodium Salt) 125 MG in Dextrose 5 % 50 ML 52.5 MG IV (20:42)
[2023-01-27 21:39] LABS: Glucose, Whole Blood 260 mg/dL (60-115)
[2023-01-28 03:08] VITALS: BP 128/90; PULSE 102; RESP 18; TEMP 36.6; O2SAT 92
[2023-01-28] MEDS: Sodium Chloride 0.45 % 1,000 ML 125 ML IVCONT ×3 (03:23→17:41)
[2023-01-28] MEDS: Levothyroxine Sodium 100 MCG/5 ML VIAL 25 MCG IVPUSH (05:52)
[2023-01-28 06:02] LABS: Hematocrit 44.6 % (37.0-47.0); Hemoglobin 14.3 g/dl (12.0-16.0); Mean Corpuscular HGB Conc 32.1 g/dl (31.0-35.0); Mean Corpuscular Hemoglobin 29.3 pg (27.0-33.0); Mean Corpuscular Volume 91.4 fL (80.0-98.0); Mean Platelet Volume 12.1 fL (9.4-12.3); Platelet Count 163 X10*3/uL (160-400); Red Blood Count 4.88 X10*6/uL (4.20-5.50); Red Cell Distribution Width 12.6 % (11.0-16.0); White Blood Count 12.2 X10*3/uL (4.8-10.8)
[2023-01-28 06:18] LABS: Anion Gap 16 (12-20); Blood Urea Nitrogen 46 mg/dL (9-16); Calcium 8.9 mg/dL (8.4-10.2); Carbon Dioxide 22 mmol/L (22-29); Chloride 115 mmol/L (96-108); Creatinine Clr Calc Pharmacy 19.1; Estimated Glomerular Filt Rate 22; Glucose Random 297 mg/dL (60-115); Potassium 3.9 mmol/L (3.3-5.1); Sodium 149 mmol/L (135-145)
[2023-01-28 07:02] VITALS: BP 141/95; PULSE 102; RESP 18; TEMP 36.3; O2SAT 93
[2023-01-28 07:32] LABS: Glucose, Whole Blood 288 mg/dL (60-115)
[2023-01-28] MEDS: Insulin Lispro 100 UNIT/ML 3 ML VIAL SUBCUT ×3 (07:47→20:49)
[2023-01-28] MEDS: 0.9 % Sodium Chloride Flush 3 ML SYRINGE IVFLUSH ×2 (07:48→23:38)
[2023-01-28] MEDS: Enoxaparin Sodium 30 MG/0.3 ML SYRINGE SUBCUT (07:48)
[2023-01-28] MEDS: Valproic Acid (as Sodium Salt) 125 MG in Dextrose 5 % 50 ML 51.25 MG IV ×2 (07:49→20:50)
--- NOTE | 2023-01-28 10:29 | PM.PNNEP ---
Subjective Subjective Date of Service: 01/29/23 Interval history: Events noted Physical Exam Vital Signs: Vital Signs: Last Vital Signs Temp 97.3 F 01/28/23 07:02 Pulse 102 H 01/28/23 07:02 Resp 18 01/28/23 07:02 BP 141/95 H 01/28/23 07:02 Pulse Ox 93 01/28/23 07:02 O2 Del Method Room Air 01/28/23 07:02 O2 Flow Rate 2 01/27/23 07:26 BMI result Body Mass Index 19.6 Const: Other: General? resting comfortably in no acute distress.? Neck? no JVD. CVS? regular rate rhythm, Respiratory lungs clear to auscultation, no respiratory distress, no wheeze, no rhonchi. Gastrointestinal abdomen soft, non tender, bowel sounds audible Extremities no edema. Neuro? moving all 4 extremity, speech? garbled Skin no rash Objective Data Labs 01/28/23 05:56 01/28/23 05:56 Labs: Laboratory Results - last 24 hr 01/27/23 01/27/23 01/27/23 11:16 16:24 19:22 WBC RBC Hgb Hct MCV MCH MCHC RDW Plt Count MPV Absolute Nucleated RBC Nucleated RBC % (auto) Sodium Potassium Chloride Carbon Dioxide Anion Gap BUN Creatinine Estim Creat Clear Calc Estimated GFR POC Glucose 307 H 220 H 304 H Random Glucose Calcium 01/27/23 01/28/23 01/28/23 21:35 05:56 05:56 WBC 12.2 H RBC 4.88 Hgb 14.3 Hct 44.6 MCV 91.4 MCH 29.3 MCHC 32.1 RDW 12.6 Plt Count 163 MPV 12.1 Absolute Nucleated RBC 0.000 Nucleated RBC % (auto) 0.0 Sodium 149 H Potassium 3.9 Chloride 115 H Carbon Dioxide 22 Anion Gap 16 BUN 46 H Creatinine 2.16 H Estim Creat Clear Calc 19.1 Estimated GFR 22 POC Glucose 260 H Random Glucose 297 H Calcium 8.9 01/28/23 07:26 WBC RBC Hgb Hct MCV MCH MCHC RDW Plt Count MPV Absolute Nucleated RBC Nucleated RBC % (auto) Sodium Potassium Chloride Carbon Dioxide Anion Gap BUN Creatinine Estim Creat Clear Calc Estimated GFR POC Glucose 288 H Random Glucose Calcium Microbiology Microbiology Results: Microbiology 01/25/23 12:10 Blood - Venous Blood Culture - Preliminary No growth after 48 hours. 01/25/23 12:10 Blood - Venous Blood Culture - Preliminary No growth after 48 hours. 01/22/23 Unknown Urine clean catch - Urine perez top Urine Culture - Final Escherichia coli Strep agalactiae (Grp B) Procedures Date of Service Date of Service: 01/29/23 Assessment & Plan Assessment and plan (1) MAURICIO (acute kidney injury): Status: Acute (2) Hypernatremia: Status: Acute Plan elderly woman with dementia with hypernatremia and acute kidney injury. Hypernatremia due to free water deficit. Acute kidney due to volume depletion. She might have sustained tubular injury as well. No evidence of obstruction thus far. recommendations. Keep intake more than output. with 1/2NS Continue to avoid nephrotoxins. With volume resuscitation renal function should return to baseline. If renal function does not improve over a renal ultrasonogram. Concur with current medical management Time Spent With Patient Time: Total time managing care of this patient today ____ minutes. Progress Note: Quality Stroke Does the patient have a stroke diagnosis?: No
[2023-01-28 11:09] LABS: Glucose, Whole Blood 215 mg/dL (60-115)
[2023-01-28] MEDS: cefTRIAXone sodium 1 GM in 0.9 % Sodium Chloride 50 ML IV (11:10)
--- NOTE | 2023-01-28 12:12 | PC.NURSE ---
Pt restless and moaning. Keeps eyes closed. Attempted to feed breakfast and lunch, unable to comprehend swallowing. Food had to bed removed from mouth. Pt unsafe to feed at this time.
[2023-01-28 13:22] VITALS: BMI 19.6
--- NOTE | 2023-01-28 13:30 | MHC.SL.SWA ---
Risk of Aspiration Due to: Reduced Cognition Dysphasia Diet Status: DOWNGRADE to NPO Liquid Consistency and Strategies for Safe Swallow: Liquid Intake Recommendation: NPO Solid Food Consistency: Dietary Recommendations: NPO Oral Medication Intake: NPO Please contact the pharmacy regarding appropriate crushable or liquid drug formulations that are available whenever modified delivery is recommended. Swallowing Recommended Treatments: Compens. Strategy Educat. Recommendation for Speech: Inpatient Speech Therapy Recommend DOWNGRADE to NPO d/t persistent inability to swallow throughout the day for neither FIREWALL ADMINISTRATOR or nursing. FIREWALL ADMINISTRATOR will re-eval tomorrow. Finishing Machine Operator Clinican/Clinical Fellow: No Supervisory Statement: I have reviewed and agree with the student/clinical fellow's documentation: N/A Speech Language Pathologist: Melva Coronado M.A., CCC-FIREWALL ADMINISTRATOR
--- NOTE | 2023-01-28 13:57 | MHC.CLN ---
NUTRITION PATIENT WAS NPO FROM 01/23-01/27. DIET ADVANCED TO DIABETIC 2000 KCAL, PUREE CONSISTENCY. PER SALES AND MARKETING AGENT, NOT SWALLOWING AND DOWNGRADE TO NPO 01/28. REVIEW OF WEIGHT HX SHOWS NO SIGNIFICANT WEIGHT CHANGE X APPROX 17 MONTHS. LABS REVIEWED. A1C 01/26=11.5. FOLLOW FOR INTAKE, LABS, AND POSSIBLE G TUBE PLACEMENT.
[2023-01-28 15:38] VITALS: BP 140/62; PULSE 81; RESP 20; TEMP 36; O2SAT 93
--- NOTE | 2023-01-28 15:54 | P.PNIM_ITS ---
Subjective Subjective Date of Service: 01/29/23 Interval History: Patient remains pleasantly confused slept only 2 hours last night, tossing and turning in bed refusing to eat, keep food in mouth and does not swallow, pushing away sitter, patient was able to eat pudding yesterday. Review of Systems Unable to obtain review of system due to mental status. Physical Exam Vital Signs: Vital Signs: Last Vital Signs Temp 96.8 F 01/28/23 15:38 Pulse 81 01/28/23 15:38 Resp 20 01/28/23 15:38 BP 140/62 H 01/28/23 15:38 Pulse Ox 93 01/28/23 15:38 O2 Del Method Nasal Cannula 01/28/23 15:38 O2 Flow Rate 2 01/28/23 15:38 BMI result Body Mass Index 19.6 Const: Other: General? restless , incoherent speec h, pushing away si tters, later noted to be somnolent.? Neck? no JVD. CVS ? regular rate rhy thm, Respiratory l ungs clear to ausc ultation, no respi ratory distress, n o wheeze, no rhonc hi. Gastrointestin al abdomen soft, b owel sounds audibl e Extremities no e ana rosa. Neuro? movin g all 4 extremity, speech? garbled S kin no rash Objective Data Active Medications Acetaminophen (Acetaminophen 325 Mg Tablet) 650 mg PO Q6H PRN PRN Reason: Pain, Mild (Pain Scale 1-3) Aspirin (Aspirin Enteric Coated 325 Mg Tablet.) 650 mg PO Q8H PRN PRN Reason: Chest Pain Dextrose (Dextrose 50 % 25 Gm/50 Ml Syringe) 25 gm IVPUSH Q15M PRN; Protocol PRN Reason: per Hypoglycemia Standing Ord. Enoxaparin Sodium (Enoxaparin Sodium 30 Mg/0.3 Ml Syringe) 30 mg SUBCUT Q24H [facility] Last Admin: 01/28/23 07:48 Dose: 30 mg Documented By: BEBE Glucose (Glucose Gel 15 Gm Gel..Gram.) 15 gm PO Q15M PRN; Protocol PRN Reason: per Hypoglycemia Standing Ord. Ceftriaxone Sodium 1 gm/ (Sodium Chloride) 50 mls @ 100 mls/hr IV Q24H [facility] Last Infusion: 01/28/23 11:58 Dose: 100 mls/hr Documented By: BEBE Sodium Chloride (Sodium Chloride 0.45 %) 1,000 mls @ 125 mls/hr IVCONT .Q8H [facility] Last Admin: 01/28/23 10:45 Dose: 125 mls/hr Documented By: BEBE Valproic Acid 125 mg/ Dextrose 51.25 mls @ 52.5 mls/hr IV Q12H [facility] Last Infusion: 01/28/23 09:12 Dose: 51.25 mls/hr Documented By: BEBE Insulin Human Lispro (Insulin Lispro 100 Unit/Ml 3 Ml Vial) 0 unit SUBCUT QIDACHS [facility]; Protocol Last Admin: 01/28/23 11:15 Dose: 4 unit Documented By: BEBE Levothyroxine Sodium (Levothyroxine Sodium 100 Mcg/5 Ml Vial) 25 mcg IVPUSH DAILY@0600 [facility] Last Admin: 01/28/23 05:52 Dose: 25 mcg Documented By: ENE Ondansetron HCl (Ondansetron Hcl 4 Mg/2 Ml Vial) 4 mg IVPUSH Q8H PRN PRN Reason: Nausea and Vomiting Sodium Chloride (0.9 % Sodium Chloride Flush 3 Ml Syringe) 3 ml IVFLUSH QSHIFT [facility] Last Admin: 01/28/23 15:15 Dose: Not Given Documented By: ELINOR Non-Admin Reason: IV Running Labs 01/28/23 05:56 01/28/23 05:56 Labs: Laboratory Results - last 24 hr 01/27/23 01/27/23 01/27/23 16:24 19:22 21:35 MCV MCH MCHC RDW Plt Count MPV Absolute Nucleated RBC Nucleated RBC % (auto) Anion Gap Estim Creat Clear Calc Estimated GFR POC Glucose 220 H 304 H 260 H Random Glucose Calcium 01/28/23 01/28/23 01/28/23 05:56 05:56 07:26 MCV 91.4 MCH 29.3 MCHC 32.1 RDW 12.6 Plt Count 163 MPV 12.1 Absolute Nucleated RBC 0.000 Nucleated RBC % (auto) 0.0 Anion Gap 16 Estim Creat Clear Calc 19.1 Estimated GFR 22 POC Glucose 288 H Random Glucose 297 H Calcium 8.9 01/28/23 11:04 MCV MCH MCHC RDW Plt Count MPV Absolute Nucleated RBC Nucleated RBC % (auto) Anion Gap Estim Creat Clear Calc Estimated GFR POC Glucose 215 H Random Glucose Calcium Microbiology Microbiology Results: Microbiology 01/25/23 12:10 Blood Culture - Preliminary Blood - Venous No growth after 48 hours. 01/25/23 12:10 Blood Culture - Preliminary Blood - Venous No growth after 48 hours. Assessment and Plan (1) Hypernatremia: Status: Acute (2) MAURICIO (acute kidney injury): Status: Acute (3) Metabolic encephalopathy: Status: Acute (4) Dementia: Status: Acute (5) Acute UTI: Status: Acute Plan 82-year-old female found wandering outside her house brought to ER for confusion.? Agitated in route given ketamine with good effect.? Has remained somnolent but arousable throughout her ER stay.? Per staff is essentially advanced dementia as well and no helpful history could be obtained.? In the ER urine showed active sediment for which she was given empiric ceftriaxone.? She will be admitted to the general medical floor and followed there 1. Metabolic encephalopathy underlying undiagnosed dementia, gradually progressing has gotten worsened in last few months, speech has become incoherent and garbled along with decrease hearing, at baseline patient ambulates with walker. Patient has received 5 days of iv antibiotic for UTI, with no improvement in symptoms likely symptoms due to progression of dementia on iv ceftriaxone and IV levothyroxine , follow clinical course Will continue IV Depakote for behavioral issues Spoke with patient's significant other Robel Farias and updated him regarding patient's current clinical condition with advanced dementia, behavioral issues poor comprehension unable to redirect he wishes her to be full code, and wishes her to be back to her baseline status with ability to ambulate and eat ,explained to him that patient dementia is progressing and she seems to be at end-stage with speech impairment ,worsening confusion but he is insistent on G-tube placement and continued treatment for acute issues. 2. E coli UTI (pansensitive) -ceftriaxone D5, blood cultures negative , continue IV since unable to take by mouth DC antibiotic after today's dose 3. hypothyroidism TSH elevated , on IV levothyroxine 25 mg , recheck TSH in 6 weeks 4. acute on chronic kidney disease stage 3 patient status post nephrectomy at age 12, renal function gradually improving,continue half-normal saline at 100 mL/hour , follow BMP 5. diabetes mellitus type 2 noted to have elevated blood sugars in 300s hemoglobin A1c greater than 11 patient not on treatment ,on correction dose insulin q.6 hours, changed to q.i.d. a.c. 6. dysphagia seen by speech therapy and was placed on pureed and thin liquid diet yesterday which patient tolerated but again today patient is refusing to eat keeping food in the mouth that has to be removed call patient's who is the healthcare proxy again today and informed him about patient's clinical condition with worsening dementia and poor quality of life that she should be changed to DNR/hospice/STATE EDITOR but he is adamant that that patient showed remain full code and wishes for G-tube placement. 7. hypernatremia likely due to poor by mouth intake , continue IV fluid to 100 mL/hour follow bmp. Healthcare proxy invoked, since patient has advanced dementia and unable to make medical decisions patient's healthcare proxy is Robel Farias. Full code Lovenox Will need ongoing hospitalization due to dysphagia, advanced dementia possible need for G-tube placement as per request of patient healthcare proxy. Time Spent With Patient Time: Total time managing care of this patient today ____ minutes. Quality Stroke Does the patient have a stroke diagnosis?: No VTE Prior VTE?: No VTE Risk Level:: Medical - moderate - high VTE Device Contraindication: N/A - Device Ordered VTE Drug Contraindication: Treatment Not Indicated
[2023-01-28 16:13] LABS: Glucose, Whole Blood 139 mg/dL (60-115)
[2023-01-28 19:24] VITALS: BP 128/60; PULSE 94; RESP 18; TEMP 36.3; O2SAT 94
[2023-01-28 20:25] LABS: Glucose, Whole Blood 179 mg/dL (60-115)
[2023-01-29] VITALS (12 sets, daily range): BP systolic 116–173; BP diastolic 56–88; PULSE 76–95; RESP 16–20; TEMP 36.1–36.4; O2SAT 90–100
[2023-01-29] MEDS: Sodium Chloride 0.45 % 1,000 ML 125 ML IVCONT ×2 (01:39→06:02)
[2023-01-29 05:43] LABS: Hemoglobin 12.5 g/dl (12.0-16.0); Mean Corpuscular HGB Conc 32.1 g/dl (31.0-35.0); Mean Corpuscular Hemoglobin 29.6 pg (27.0-33.0); Mean Corpuscular Volume 92.2 fL (80.0-98.0); Mean Platelet Volume 12.3 fL (9.4-12.3); Platelet Count 146 X10*3/uL (160-400); Red Blood Count 4.23 X10*6/uL (4.20-5.50); Red Cell Distribution Width 12.7 % (11.0-16.0); White Blood Count 10.2 X10*3/uL (4.8-10.8)
[2023-01-29] MEDS: Enoxaparin Sodium 30 MG/0.3 ML SYRINGE SUBCUT (06:01)
[2023-01-29] MEDS: Levothyroxine Sodium 100 MCG/5 ML VIAL 25 MCG IVPUSH (06:01)
[2023-01-29 06:08] LABS: Anion Gap 15 (12-20); Blood Urea Nitrogen 27 mg/dL (9-16); Calcium 8.1 mg/dL (8.4-10.2); Carbon Dioxide 19 mmol/L (22-29); Chloride 116 mmol/L (96-108); Creatinine Clr Calc Pharmacy 49.2; Estimated Glomerular Filt Rate > 60; Glucose Random 215 mg/dL (60-115); Potassium 3.5 mmol/L (3.3-5.1); Sodium 146 mmol/L (135-145)
[2023-01-29] MEDS: Valproic Acid (as Sodium Salt) 125 MG in Dextrose 5 % 50 ML 52.5 MG IV ×2 (07:29→20:21)
--- NOTE | 2023-01-29 07:33 | P.CDIM_ITS ---
PROVIDER RESPONSE TEXT: To clarify, the appropriate diagnosis supported by the clinical indicators: Diabetes mellitus Type 2 with hyperglycemia QUERY TEXT: PHYSICIAN'S DOCUMENTATION REQUEST Date of Query: 01/27/2023 09:12 AM EDT Patient Name: Josafat Keys Admit Date: 01/23/2023 Dear Krista Schultz, A review of the medical record indicates additional documentation may be needed. Please review below and update the documentation accordingly. Clinical Indicators: LABS: POC glucose 539 H 335 H Insulin Patient not taking medications, was also prediabetic but never treated. PN: Diabetes mellitus type 2 noted elevated blood sugars in 300's-will place on correction dose insul in q.6 hours, Please clarify the following regarding the Complications of Diabetes Mellitus (DM): Diabetes mellitus Type 2 with hyperglycemia Other please specify Other (explain)Clinically unable to determine (explain)Thank you, Vianney Hurley, CCS, CDIS Use of terms such as suspected, likely, concern for, or probable (associated with a specific diagnosi s that is being evaluated, monitored, or treated as if it exists) are acceptable and can be coded in the inpatient se tting, when documented at the time of discharge. Please use your independent medical judgment in providing your response. THIS QUERY IS PART OF THE PERMANENT MEDICAL RECORD
[2023-01-29 07:37] LABS: Glucose, Whole Blood 200 mg/dL (60-115)
[2023-01-29] MEDS: 0.9 % Sodium Chloride Flush 3 ML SYRINGE IVFLUSH (07:41)
--- NOTE | 2023-01-29 07:55 | P.PNGS_ITS ---
Subjective Subjective Date of Service: 02/03/23 Interval history: I was informed by Hospitalist service yesterday to proceed with PEG placement as per nursing staff , pt not eating at all remains confused Physical Exam Vital Signs: Vital Signs: Last Vital Signs Temp 97.0 F 01/29/23 06:59 Pulse 95 01/29/23 06:59 Resp 18 01/29/23 06:59 BP 116/56 L 01/29/23 06:59 Pulse Ox 94 01/29/23 06:59 O2 Del Method Room Air 01/29/23 06:59 O2 Flow Rate 2 01/28/23 15:38 BMI result Body Mass Index 19.6 Const: Other: confused, not communicative, appears restless Resp: Effort & Inspection: normal respiratory effort Cardio: Rate: regular rate GI: Other: no surgical scars Inspection: No distended Palpation (GI): Soft to palpation, not firm and no guarding Objective Data Active Medications Acetaminophen (Acetaminophen 325 Mg Tablet) 650 mg PO Q6H PRN PRN Reason: Pain, Mild (Pain Scale 1-3) Aspirin (Aspirin Enteric Coated 325 Mg Tablet.Dr) 650 mg PO Q8H PRN PRN Reason: Chest Pain Dextrose (Dextrose 50 % 25 Gm/50 Ml Syringe) 25 gm IVPUSH Q15M PRN; Protocol PRN Reason: per Hypoglycemia Standing Ord. Enoxaparin Sodium (Enoxaparin Sodium 30 Mg/0.3 Ml Syringe) 30 mg SUBCUT Q24H [facility] Last Admin: 01/29/23 06:01 Dose: 30 mg Documented By: DARLEEN Glucose (Glucose Gel 15 Gm Gel..Gram.) 15 gm PO Q15M PRN; Protocol PRN Reason: per Hypoglycemia Standing Ord. Ceftriaxone Sodium 1 gm/ (Sodium Chloride) 50 mls @ 100 mls/hr IV Q24H [facility] Last Infusion: 01/28/23 11:58 Dose: 100 mls/hr Documented By: BEBE Sodium Chloride (Sodium Chloride 0.45 %) 1,000 mls @ 125 mls/hr IVCONT .Q8H [facility] Last Admin: 01/29/23 06:02 Dose: 125 mls/hr Documented By: DARLEEN Valproic Acid 125 mg/ Dextrose 51.25 mls @ 52.5 mls/hr IV Q12H [facility] Last Admin: 01/29/23 07:29 Dose: 52.5 mls/hr Documented By: BEBE Insulin Human Lispro (Insulin Lispro 100 Unit/Ml 3 Ml Vial) 0 unit SUBCUT QIDACHS [facility]; Protocol Last Admin: 01/29/23 07:34 Dose: Not Given Documented By: BEBE Non-Admin Reason: NPO Levothyroxine Sodium (Levothyroxine Sodium 100 Mcg/5 Ml Vial) 25 mcg IVPUSH DAILY@0600 [facility] Last Admin: 01/29/23 06:01 Dose: 25 mcg Documented By: DARLEEN Ondansetron HCl (Ondansetron Hcl 4 Mg/2 Ml Vial) 4 mg IVPUSH Q8H PRN PRN Reason: Nausea and Vomiting Sodium Chloride (0.9 % Sodium Chloride Flush 3 Ml Syringe) 3 ml IVFLUSH QSHIFT [facility] Last Admin: 01/29/23 07:41 Dose: 3 ml Documented By: BEBE Labs 01/29/23 05:04 01/29/23 05:04 Labs: Laboratory Results - last 24 hr 01/28/23 01/28/23 01/28/23 11:04 16:05 20:15 MCV MCH MCHC RDW Plt Count MPV Absolute Nucleated RBC Nucleated RBC % (auto) Anion Gap Estim Creat Clear Calc Estimated GFR POC Glucose 215 H 139 H 179 H Random Glucose Calcium 01/29/23 01/29/23 01/29/23 05:04 05:04 07:33 MCV 92.2 MCH 29.6 MCHC 32.1 RDW 12.7 Plt Count 146 L MPV 12.3 Absolute Nucleated RBC 0.000 Nucleated RBC % (auto) 0.0 Anion Gap 15 Estim Creat Clear Calc 49.2 Estimated GFR > 60 POC Glucose 200 H Random Glucose 215 H Calcium 8.1 L D Procedures Date of Service Date of Service: 02/03/23 Progress Note: A&P Assessment and plan (1) Dementia: Status: Acute Assessment and Plan: i had multiple discussions with Loy Farias about PEG placement I explained technique of procedure I reviewed risks including but not limited to bleeding, infections, injuryto intraabdl organs, tube leak/dislodgement, loss of airway he says he understands and wants to proceed Time Spent With Patient Time: Total time managing care of this patient today ____ minutes. Quality Stroke Does the patient have a stroke diagnosis?: No VTE Prior VTE?: No VTE Risk Level:: Medical - moderate - high VTE Device Contraindication: N/A - Device Ordered VTE Drug Contraindication: Treatment Not Indicated
--- NOTE | 2023-01-29 08:58 | HO.ANESPROP2 ---
HPI - Anesthesia Eval Consult details Narrative: 82 yo female patient for PEG tube insertion. History obtained from patient's as patient has dementia PMF Active Problems Active Problems: All Active Problems (Updated 01/29/23 @ 08:59 by Natalie Eid MD) Hypernatremia (Acute) MAURICIO (acute kidney injury) (Acute)- Resolving. Metabolic encephalopathy (Acute) Dementia (Acute) x 3 years. Worsened in last 6 months Acute UTI (Acute) Dehydration H/o cardiac angio with finding of 40% LAD Occlusion per . No stent CAD. Has NTG but never used. Takes aspirin and rests if chest pains which have been intermittent over the last 10yrs when cath was done Admitted with uncontrolled blood sugar- highest 624. Last sugar 213 Past Medical History Medical History Diabetes Foot pain, bilateral Family History Family history of problems with anesthesia: No Surgical History Surgical History (Updated 01/29/23 @ 10:42 by Natalie Eid MD) History of cardiac cath History of Problems with Anesthesia: No Social History Social History Household Members: Spouse Housing: House Unable to assess alcohol history related to: Unable to respond Alcohol intake: never Patient Tobacco Use Status: Former Tobacco user Smoked in Last 30 Days: No Use of substances other than those prescribed or required for medical reasons: No Currently Displaying Signs/Symptoms of Drug Intoxication Withdrawal: No Are you DNR?: No Advance Directives: Yes Advance Directives on File: Yes Advance Directives Date on File: 01/22/23 Patient : No Poor oral hygiene: Yes service: No Meds Allergies Allergy/AdvReac Type Severity Reaction Status Date / Time No Known Allergies Allergy Verified 01/24/23 00:05 Active Medications: Current Medications Acetaminophen (Acetaminophen 325 Mg Tablet) 650 mg PO Q6H PRN PRN Reason: Pain, Mild (Pain Scale 1-3) Aspirin (Aspirin Enteric Coated 325 Mg Tablet.Dr) 650 mg PO Q8H PRN PRN Reason: Chest Pain Dextrose (Dextrose 50 % 25 Gm/50 Ml Syringe) 25 gm IVPUSH Q15M PRN; Protocol PRN Reason: per Hypoglycemia Standing Ord. Enoxaparin Sodium (Enoxaparin Sodium 40 Mg/0.4 Ml Syringe) 40 mg SUBCUT Q24H [facility] Glucose (Glucose Gel 15 Gm Gel..Gram.) 15 gm PO Q15M PRN; Protocol PRN Reason: per Hypoglycemia Standing Ord. Ceftriaxone Sodium 1 gm/ (Sodium Chloride) 50 mls @ 100 mls/hr IV Q24H [facility] Last Infusion: 01/28/23 11:58 Dose: Infused Sodium Chloride (Sodium Chloride 0.45 %) 1,000 mls @ 125 mls/hr IVCONT .Q8H [facility] Last Admin: 01/29/23 06:02 Dose: 125 mls/hr Valproic Acid 125 mg/ Dextrose 51.25 mls @ 52.5 mls/hr IV Q12H [facility] Last Infusion: 01/29/23 08:41 Dose: Infused Insulin Human Lispro (Insulin Lispro 100 Unit/Ml 3 Ml Vial) 0 unit SUBCUT QIDACHS [facility]; Protocol Last Admin: 01/29/23 07:34 Dose: Not Given Levothyroxine Sodium (Levothyroxine Sodium 100 Mcg/5 Ml Vial) 25 mcg IVPUSH DAILY@0600 [facility] Last Admin: 01/29/23 06:01 Dose: 25 mcg Ondansetron HCl (Ondansetron Hcl 4 Mg/2 Ml Vial) 4 mg IVPUSH Q8H PRN PRN Reason: Nausea and Vomiting Sodium Chloride (0.9 % Sodium Chloride Flush 3 Ml Syringe) 3 ml IVFLUSH QSHIFT [facility] Last Admin: 01/29/23 07:41 Dose: 3 ml Home Medications Medication Instructions Recorded Confirmed Last Taken Type aspirin 325 mg tablet,delayed 650 mg PO Q8H PRN Chest Pain 01/23/23 01/23/23 Unknown History release Exam Exam Date and Time: January 29, 2023 0858 Height,Weight and Vital Signs: Height 5 ft 8 in Weight 58.4 kg Last Vital Signs Temp 97.0 F 01/29/23 06:59 Pulse 95 01/29/23 06:59 Resp 18 01/29/23 06:59 BP 116/56 L 01/29/23 06:59 Pulse Ox 94 01/29/23 06:59 O2 Del Method Room Air 01/29/23 06:59 O2 Flow Rate 2 01/28/23 15:38 Vital Signs Temp Pulse Resp BP Pulse Ox O2 Del Method O2 Flow Rate 01/29/23 08:43 97.4 F 89 20 138/88 96 Room Air 01/29/23 06:59 97.0 F 95 18 116/56 L 94 Room Air 01/28/23 19:24 97.3 F 94 18 128/60 94 Room Air 01/28/23 15:38 96.8 F 81 20 140/62 H 93 Nasal Cannula 2 Pertinent Lab Results Pertinent Lab Results: Laboratory Tests 01/22/23 01/22/23 01/22/23 10:55 10:55 10:55 WBC 5.2 RBC 4.45 Hgb 13.3 Hct 39.4 MCV 88.5 MCH 29.9 MCHC 33.8 RDW 12.0 Plt Count 242 MPV 11.2 Immature Gran % (Auto) 0.4 Neut % (Auto) 69.2 Lymph % (Auto) 20.9 Williamson % (Auto) 7.2 Eos % (Auto) 1.9 Baso % (Auto) 0.4 Lymph # (Auto) 1.1 L Williamson # (Auto) 0.4 Eos # (Auto) 0.1 Baso # (Auto) 0.0 Abs Immat Gran (auto) 0.02 Absolute Neuts (auto) 3.6 Absolute Nucleated RBC 0.000 Nucleated RBC % (auto) 0.0 Sodium 135 Potassium 4.6 Chloride 103 Carbon Dioxide 24 Anion Gap 13 BUN 24 H Creatinine 0.98 Estim Creat Clear Calc 42.3 Estimated GFR 55 POC Glucose Random Glucose 389 H* Fasting Glucose Estimat Average Glucose Hemoglobin A1c % Calcium 9.3 Magnesium 2.0 Total Bilirubin 0.5 Direct Bilirubin 0.2 AST 12 ALT 8 Alkaline Phosphatase 76 Total Creatine Kinase Total Protein 7.1 Albumin 3.8 TSH Urine Color Urine Appearance Urine pH Ur Specific [place] Urine Protein Urine Glucose (UA) Urine Ketones Urine Blood Urine Nitrite Ur Leukocyte Esterase Urine RBC Urine WBC Ur Squamous Epith Cells Urine Bacteria Hyaline Casts Salicylates Urine Opiates Screen Urine Fentanyl Screen Acetaminophen Ur Barbiturates Screen Ur Phencyclidine Scrn Ur Amphetamines Screen U Benzodiazepines Scrn Urine Cocaine Screen U Marijuana (THC) Screen Ethyl Alcohol < 10 01/22/23 01/22/23 01/22/23 10:56 10:56 14:36 WBC RBC Hgb Hct MCV MCH MCHC RDW Plt Count MPV Immature Gran % (Auto) Neut % (Auto) Lymph % (Auto) Williamson % (Auto) Eos % (Auto) Baso % (Auto) Lymph # (Auto) Williamson # (Auto) Eos # (Auto) Baso # (Auto) Abs Immat Gran (auto) Absolute Neuts (auto) Absolute Nucleated RBC Nucleated RBC % (auto) Sodium Potassium Chloride Carbon Dioxide Anion Gap BUN Creatinine Estim Creat Clear Calc Estimated GFR POC Glucose Random Glucose Fasting Glucose Estimat Average Glucose Hemoglobin A1c % Calcium Magnesium Total Bilirubin Direct Bilirubin AST ALT Alkaline Phosphatase Total Creatine Kinase 72 Total Protein Albumin TSH Urine Color Yellow Urine Appearance Cloudy Urine pH 6.5 Ur Specific [place] 1.020 Urine Protein Negative Urine Glucose (UA) >=1000 H Urine Ketones Trace Urine Blood Moderate (2+) H Urine Nitrite Negative Ur Leukocyte Esterase Moderate (2+) H Urine RBC >20 H Urine WBC 21-50 H Ur Squamous Epith Cells 6-10 Urine Bacteria 4+ Hyaline Casts 0-2 Salicylates < 5.0 L Urine Opiates Screen Urine Fentanyl Screen Acetaminophen < 17 Ur Barbiturates Screen Ur Phencyclidine Scrn Ur Amphetamines Screen U Benzodiazepines Scrn Urine Cocaine Screen U Marijuana (THC) Screen Ethyl Alcohol 01/22/23 01/25/23 01/25/23 14:36 15:43 17:11 WBC RBC Hgb Hct MCV MCH MCHC RDW Plt Count MPV Immature Gran % (Auto) Neut % (Auto) Lymph % (Auto) Williamson % (Auto) Eos % (Auto) Baso % (Auto) Lymph # (Auto) Williamson # (Auto) Eos # (Auto) Baso # (Auto) Abs Immat Gran (auto) Absolute Neuts (auto) Absolute Nucleated RBC Nucleated RBC % (auto) Sodium 142 Potassium 4.1 Chloride 108 Carbon Dioxide 22 Anion Gap 16 BUN 38 H Creatinine 1.61 H Estim Creat Clear Calc 25.7 Estimated GFR 31 POC Glucose 539 H* Random Glucose Fasting Glucose 624 H* Estimat Average Glucose Hemoglobin A1c % Calcium 8.8 Magnesium Total Bilirubin 0.6 Direct Bilirubin AST 18 ALT 12 Alkaline Phosphatase 78 Total Creatine Kinase Total Protein 6.3 L Albumin 3.2 L TSH Urine Color Urine Appearance Urine pH Ur Specific [place] Urine Protein Urine Glucose (UA) Urine Ketones Urine Blood Urine Nitrite Ur Leukocyte Esterase Urine RBC Urine WBC Ur Squamous Epith Cells Urine Bacteria Hyaline Casts Salicylates Urine Opiates Screen Not Detected Urine Fentanyl Screen Not Detected Acetaminophen Ur Barbiturates Screen Not Detected Ur Phencyclidine Scrn Not Detected Ur Amphetamines Screen Not Detected U Benzodiazepines Scrn Not Detected Urine Cocaine Screen Not Detected U Marijuana (THC) Screen Not Detected Ethyl Alcohol 01/25/23 01/25/23 01/26/23 18:00 19:15 05:50 WBC RBC Hgb Hct MCV MCH MCHC RDW Plt Count MPV Immature Gran % (Auto) Neut % (Auto) Lymph % (Auto) Williamson % (Auto) Eos % (Auto) Baso % (Auto) Lymph # (Auto) Williamson # (Auto) Eos # (Auto) Baso # (Auto) Abs Immat Gran (auto) Absolute Neuts (auto) Absolute Nucleated RBC Nucleated RBC % (auto) Sodium Potassium Chloride Carbon Dioxide Anion Gap BUN Creatinine Estim Creat Clear Calc Estimated GFR POC Glucose 576 H* 407 H* 287 H Random Glucose Fasting Glucose Estimat Average Glucose Hemoglobin A1c % Calcium Magnesium Total Bilirubin Direct Bilirubin AST ALT Alkaline Phosphatase Total Creatine Kinase Total Protein Albumin TSH Urine Color Urine Appearance Urine pH Ur Specific [place] Urine Protein Urine Glucose (UA) Urine Ketones Urine Blood Urine Nitrite Ur Leukocyte Esterase Urine RBC Urine WBC Ur Squamous Epith Cells Urine Bacteria Hyaline Casts Salicylates Urine Opiates Screen Urine Fentanyl Screen Acetaminophen Ur Barbiturates Screen Ur Phencyclidine Scrn Ur Amphetamines Screen U Benzodiazepines Scrn Urine Cocaine Screen U Marijuana (THC) Screen Ethyl Alcohol 01/26/23 01/26/23 01/26/23 06:42 07:11 09:28 WBC 13.5 H RBC 5.12 Hgb 15.1 Hct 45.8 MCV 89.5 MCH 29.5 MCHC 33.0 RDW 12.3 Plt Count 218 MPV 12.1 Immature Gran % (Auto) 0.4 Neut % (Auto) 88.9 H Lymph % (Auto) 5.7 L Williamson % (Auto) 4.8 Eos % (Auto) 0.1 Baso % (Auto) 0.1 Lymph # (Auto) 0.8 L Williamson # (Auto) 0.7 Eos # (Auto) 0.0 Baso # (Auto) 0.0 Abs Immat Gran (auto) 0.05 H Absolute Neuts (auto) 12.0 H Absolute Nucleated RBC 0.000 Nucleated RBC % (auto) 0.0 Sodium Potassium Chloride Carbon Dioxide Anion Gap BUN Creatinine Estim Creat Clear Calc Estimated GFR POC Glucose 293 H 329 H Random Glucose Fasting Glucose Estimat Average Glucose Hemoglobin A1c % Calcium Magnesium Total Bilirubin Direct Bilirubin AST ALT Alkaline Phosphatase Total Creatine Kinase Total Protein Albumin TSH Urine Color Urine Appearance Urine pH Ur Specific [place] Urine Protein Urine Glucose (UA) Urine Ketones Urine Blood Urine Nitrite Ur Leukocyte Esterase Urine RBC Urine WBC Ur Squamous Epith Cells Urine Bacteria Hyaline Casts Salicylates Urine Opiates Screen Urine Fentanyl Screen Acetaminophen Ur Barbiturates Screen Ur Phencyclidine Scrn Ur Amphetamines Screen U Benzodiazepines Scrn Urine Cocaine Screen U Marijuana (THC) Screen Ethyl Alcohol 01/26/23 01/26/23 01/26/23 09:28 09:28 09:28 WBC RBC Hgb Hct MCV MCH MCHC RDW Plt Count MPV Immature Gran % (Auto) Neut % (Auto) Lymph % (Auto) Williamson % (Auto) Eos % (Auto) Baso % (Auto) Lymph # (Auto) Williamson # (Auto) Eos # (Auto) Baso # (Auto) Abs Immat Gran (auto) Absolute Neuts (auto) Absolute Nucleated RBC Nucleated RBC % (auto) Sodium 146 H 147 H Potassium 3.9 3.9 Chloride 111 H 111 H Carbon Dioxide 21 L 21 L Anion Gap 18 19 BUN 53 H 52 H Creatinine 2.28 H 2.25 H Estim Creat Clear Calc 18.1 18.4 Estimated GFR 21 21 POC Glucose Random Glucose 358 H* Fasting Glucose 359 H* Estimat Average Glucose 283 Hemoglobin A1c % 11.5 H Calcium 9.3 8.2 L D Magnesium Total Bilirubin 0.7 Direct Bilirubin AST 19 ALT 15 Alkaline Phosphatase 82 Total Creatine Kinase Total Protein 6.9 Albumin 3.4 L TSH 8.76 H Urine Color Urine Appearance Urine pH Ur Specific [place] Urine Protein Urine Glucose (UA) Urine Ketones Urine Blood Urine Nitrite Ur Leukocyte Esterase Urine RBC Urine WBC Ur Squamous Epith Cells Urine Bacteria Hyaline Casts Salicylates Urine Opiates Screen Urine Fentanyl Screen Acetaminophen Ur Barbiturates Screen Ur Phencyclidine Scrn Ur Amphetamines Screen U Benzodiazepines Scrn Urine Cocaine Screen U Marijuana (THC) Screen Ethyl Alcohol 01/26/23 01/26/23 01/27/23 11:28 17:55 00:07 WBC RBC Hgb Hct MCV MCH MCHC RDW Plt Count MPV Immature Gran % (Auto) Neut % (Auto) Lymph % (Auto) [place] % (Auto) Eos % (Auto) Baso % (Auto) Lymph # (Auto) Williamson # (Auto) Eos # (Auto) Baso # (Auto) Abs Immat Gran (auto) Absolute Neuts (auto) Absolute Nucleated RBC Nucleated RBC % (auto) Sodium Potassium Chloride Carbon Dioxide Anion Gap BUN Creatinine Estim Creat Clear Calc Estimated GFR POC Glucose 333 H 355 H* 274 H Random Glucose Fasting Glucose Estimat Average Glucose Hemoglobin A1c % Calcium Magnesium Total Bilirubin Direct Bilirubin AST ALT Alkaline Phosphatase Total Creatine Kinase Total Protein Albumin TSH Urine Color Urine Appearance Urine pH Ur Specific [place] Urine Protein Urine Glucose (UA) Urine Ketones Urine Blood Urine Nitrite Ur Leukocyte Esterase Urine RBC Urine WBC Ur Squamous Epith Cells Urine Bacteria Hyaline Casts Salicylates Urine Opiates Screen Urine Fentanyl Screen Acetaminophen Ur Barbiturates Screen Ur Phencyclidine Scrn Ur Amphetamines Screen U Benzodiazepines Scrn Urine Cocaine Screen U Marijuana (THC) Screen Ethyl Alcohol 01/27/23 01/27/23 01/27/23 05:02 05:02 07:24 WBC 13.5 H RBC 5.18 Hgb 15.1 Hct 47.0 MCV 90.7 MCH 29.2 MCHC 32.1 RDW 12.5 Plt Count 196 MPV 12.1 Immature Gran % (Auto) 0.4 Neut % (Auto) 84.3 H Lymph % (Auto) 6.5 L Williamson % (Auto) 7.1 Eos % (Auto) 1.6 Baso % (Auto) 0.1 Lymph # (Auto) 0.9 L Williamson # (Auto) 1.0 Eos # (Auto) 0.2 Baso # (Auto) 0.0 Abs Immat Gran (auto) 0.05 H Absolute Neuts (auto) 11.3 H Absolute Nucleated RBC 0.000 Nucleated RBC % (auto) 0.0 Sodium 148 H Potassium 3.6 Chloride 113 H Carbon Dioxide 20 L Anion Gap 19 BUN 55 H Creatinine 2.35 H Estim Creat Clear Calc 17.6 Estimated GFR 20 POC Glucose 369 H* Random Glucose Fasting Glucose 427 H* Estimat Average Glucose Hemoglobin A1c % Calcium 8.8 D Magnesium Total Bilirubin 0.5 Direct Bilirubin AST 18 ALT 18 Alkaline Phosphatase 83 Total Creatine Kinase Total Protein 6.5 Albumin 3.2 L TSH Urine Color Urine Appearance Urine pH Ur Specific [place] Urine Protein Urine Glucose (UA) Urine Ketones Urine Blood Urine Nitrite Ur Leukocyte Esterase Urine RBC Urine WBC Ur Squamous Epith Cells Urine Bacteria Hyaline Casts Salicylates Urine Opiates Screen Urine Fentanyl Screen Acetaminophen Ur Barbiturates Screen Ur Phencyclidine Scrn Ur Amphetamines Screen U Benzodiazepines Scrn Urine Cocaine Screen U Marijuana (THC) Screen Ethyl Alcohol 01/27/23 01/27/23 01/27/23 11:16 16:24 19:22 WBC RBC Hgb Hct MCV MCH MCHC RDW Plt Count MPV Immature Gran % (Auto) Neut % (Auto) Lymph % (Auto) [place] % (Auto) Eos % (Auto) Baso % (Auto) Lymph # (Auto) Williamson # (Auto) Eos # (Auto) Baso # (Auto) Abs Immat Gran (auto) Absolute Neuts (auto) Absolute Nucleated RBC Nucleated RBC % (auto) Sodium Potassium Chloride Carbon Dioxide Anion Gap BUN Creatinine Estim Creat Clear Calc Estimated GFR POC Glucose 307 H 220 H 304 H Random Glucose Fasting Glucose Estimat Average Glucose Hemoglobin A1c % Calcium Magnesium Total Bilirubin Direct Bilirubin AST ALT Alkaline Phosphatase Total Creatine Kinase Total Protein Albumin TSH Urine Color Urine Appearance Urine pH Ur Specific [place] Urine Protein Urine Glucose (UA) Urine Ketones Urine Blood Urine Nitrite Ur Leukocyte Esterase Urine RBC Urine WBC Ur Squamous Epith Cells Urine Bacteria Hyaline Casts Salicylates Urine Opiates Screen Urine Fentanyl Screen Acetaminophen Ur Barbiturates Screen Ur Phencyclidine Scrn Ur Amphetamines Screen U Benzodiazepines Scrn Urine Cocaine Screen U Marijuana (THC) Screen Ethyl Alcohol 01/27/23 01/28/23 01/28/23 21:35 05:56 05:56 WBC 12.2 H RBC 4.88 Hgb 14.3 Hct 44.6 MCV 91.4 MCH 29.3 MCHC 32.1 RDW 12.6 Plt Count 163 MPV 12.1 Immature Gran % (Auto) Neut % (Auto) Lymph % (Auto) Williamson % (Auto) Eos % (Auto) Baso % (Auto) Lymph # (Auto) Williamson # (Auto) Eos # (Auto) Baso # (Auto) Abs Immat Gran (auto) Absolute Neuts (auto) Absolute Nucleated RBC 0.000 Nucleated RBC % (auto) 0.0 Sodium 149 H Potassium 3.9 Chloride 115 H Carbon Dioxide 22 Anion Gap 16 BUN 46 H Creatinine 2.16 H Estim Creat Clear Calc 19.1 Estimated GFR 22 POC Glucose 260 H Random Glucose 297 H Fasting Glucose Estimat Average Glucose Hemoglobin A1c % Calcium 8.9 Magnesium Total Bilirubin Direct Bilirubin AST ALT Alkaline Phosphatase Total Creatine Kinase Total Protein Albumin TSH Urine Color Urine Appearance Urine pH Ur Specific [place] Urine Protein Urine Glucose (UA) Urine Ketones Urine Blood Urine Nitrite Ur Leukocyte Esterase Urine RBC Urine WBC Ur Squamous Epith Cells Urine Bacteria Hyaline Casts Salicylates Urine Opiates Screen Urine Fentanyl Screen Acetaminophen Ur Barbiturates Screen Ur Phencyclidine Scrn Ur Amphetamines Screen U Benzodiazepines Scrn Urine Cocaine Screen U Marijuana (THC) Screen Ethyl Alcohol 01/28/23 01/28/23 01/28/23 07:26 11:04 16:05 WBC RBC Hgb Hct MCV MCH MCHC RDW Plt Count MPV Immature Gran % (Auto) Neut % (Auto) Lymph % (Auto) [place] % (Auto) Eos % (Auto) Baso % (Auto) Lymph # (Auto) Williamson # (Auto) Eos # (Auto) Baso # (Auto) Abs Immat Gran (auto) Absolute Neuts (auto) Absolute Nucleated RBC Nucleated RBC % (auto) Sodium Potassium Chloride Carbon Dioxide Anion Gap BUN Creatinine Estim Creat Clear Calc Estimated GFR POC Glucose 288 H 215 H 139 H Random Glucose Fasting Glucose Estimat Average Glucose Hemoglobin A1c % Calcium Magnesium Total Bilirubin Direct Bilirubin AST ALT Alkaline Phosphatase Total Creatine Kinase Total Protein Albumin TSH Urine Color Urine Appearance Urine pH Ur Specific [place] Urine Protein Urine Glucose (UA) Urine Ketones Urine Blood Urine Nitrite Ur Leukocyte Esterase Urine RBC Urine WBC Ur Squamous Epith Cells Urine Bacteria Hyaline Casts Salicylates Urine Opiates Screen Urine Fentanyl Screen Acetaminophen Ur Barbiturates Screen Ur Phencyclidine Scrn Ur Amphetamines Screen U Benzodiazepines Scrn Urine Cocaine Screen U Marijuana (THC) Screen Ethyl Alcohol 01/28/23 01/29/23 01/29/23 20:15 05:04 05:04 WBC 10.2 RBC 4.23 Hgb 12.5 Hct 39.0 MCV 92.2 MCH 29.6 MCHC 32.1 RDW 12.7 Plt Count 146 L MPV 12.3 Immature Gran % (Auto) Neut % (Auto) Lymph % (Auto) Williamson % (Auto) Eos % (Auto) Baso % (Auto) Lymph # (Auto) Williamson # (Auto) Eos # (Auto) Baso # (Auto) Abs Immat Gran (auto) Absolute Neuts (auto) Absolute Nucleated RBC 0.000 Nucleated RBC % (auto) 0.0 Sodium 146 H Potassium 3.5 Chloride 116 H Carbon Dioxide 19 L Anion Gap 15 BUN 27 H Creatinine 0.84 Estim Creat Clear Calc 49.2 Estimated GFR > 60 POC Glucose 179 H Random Glucose 215 H Fasting Glucose Estimat Average Glucose Hemoglobin A1c % Calcium 8.1 L D Magnesium Total Bilirubin Direct Bilirubin AST ALT Alkaline Phosphatase Total Creatine Kinase Total Protein Albumin TSH Urine Color Urine Appearance Urine pH Ur Specific [place] Urine Protein Urine Glucose (UA) Urine Ketones Urine Blood Urine Nitrite Ur Leukocyte Esterase Urine RBC Urine WBC Ur Squamous Epith Cells Urine Bacteria Hyaline Casts Salicylates Urine Opiates Screen Urine Fentanyl Screen Acetaminophen Ur Barbiturates Screen Ur Phencyclidine Scrn Ur Amphetamines Screen U Benzodiazepines Scrn Urine Cocaine Screen U Marijuana (THC) Screen Ethyl Alcohol 01/29/23 07:33 WBC RBC Hgb Hct MCV MCH MCHC RDW Plt Count MPV Immature Gran % (Auto) Neut % (Auto) Lymph % (Auto) Williamson % (Auto) Eos % (Auto) Baso % (Auto) Lymph # (Auto) Williamson # (Auto) Eos # (Auto) Baso # (Auto) Abs Immat Gran (auto) Absolute Neuts (auto) Absolute Nucleated RBC Nucleated RBC % (auto) Sodium Potassium Chloride Carbon Dioxide Anion Gap BUN Creatinine Estim Creat Clear Calc Estimated GFR POC Glucose 200 H Random Glucose Fasting Glucose Estimat Average Glucose Hemoglobin A1c % Calcium Magnesium Total Bilirubin Direct Bilirubin AST ALT Alkaline Phosphatase Total Creatine Kinase Total Protein Albumin TSH Urine Color Urine Appearance Urine pH Ur Specific [place] Urine Protein Urine Glucose (UA) Urine Ketones Urine Blood Urine Nitrite Ur Leukocyte Esterase Urine RBC Urine WBC Ur Squamous Epith Cells Urine Bacteria Hyaline Casts Salicylates Urine Opiates Screen Urine Fentanyl Screen Acetaminophen Ur Barbiturates Screen Ur Phencyclidine Scrn Ur Amphetamines Screen U Benzodiazepines Scrn Urine Cocaine Screen U Marijuana (THC) Screen Ethyl Alcohol Airway Mallampati Class: Patient Non-Cooperative TM Dist: >3cm Loose/Missing/Broken Teeth: Yes (Missing some teeth) Heart: RRR Lungs: CTAB Assessment and Plan Assessment Anesthesia Assessment: Anesthesia Plan Discussed and Chart Reviewed Final Anesthetic Review Family History of Problems with Anesthesia: No History of Problems with Anesthesia: No NPO: Yes ASA Class: IV and Emergency Final Preanesthetic Review: No Changes in Pt Med Stat, Meds/Allgs Chart Reviewed, Consent Obtained/Reviewed, Anes Risks/Benef Reviewed and DNR Form (If Appl.) (Patient is a full code) Patient Risk: High Procedure Risk: Low Assessment/Block/Sedation in SS: Assess/Block/Sedation-SS Anesthetic Plan Anesthetic Plan: MAC: Disposition: Standard PACU and Inp. Admit - Standard Bed
[2023-01-29 09:27] LABS: Glucose, Whole Blood 213 mg/dL (60-115)
--- NOTE | 2023-01-29 10:18 | P.PNNP_ITS ---
Subjective Subjective Date of Service: 01/29/23 Interval history: Events noted. Remains confused. Physical Exam 2 Vital Signs: Vital Signs: Last Vital Signs Temp 97.4 F 01/29/23 08:43 Pulse 89 01/29/23 08:43 Resp 20 01/29/23 08:43 BP 138/88 01/29/23 08:43 Pulse Ox 96 01/29/23 08:43 O2 Del Method Room Air 01/29/23 08:43 O2 Flow Rate 2 01/28/23 15:38 BMI result Body Mass Index 19.6 Objective Data Labs 01/29/23 05:04 01/29/23 05:04 Labs: Laboratory Results - last 24 hr 01/28/23 01/28/23 01/28/23 11:04 16:05 20:15 WBC RBC Hgb Hct MCV MCH MCHC RDW Plt Count MPV Absolute Nucleated RBC Nucleated RBC % (auto) Sodium Potassium Chloride Carbon Dioxide Anion Gap BUN Creatinine Estim Creat Clear Calc Estimated GFR POC Glucose 215 H 139 H 179 H Random Glucose Calcium 01/29/23 01/29/23 01/29/23 05:04 05:04 07:33 WBC 10.2 RBC 4.23 Hgb 12.5 Hct 39.0 MCV 92.2 MCH 29.6 MCHC 32.1 RDW 12.7 Plt Count 146 L MPV 12.3 Absolute Nucleated RBC 0.000 Nucleated RBC % (auto) 0.0 Sodium 146 H Potassium 3.5 Chloride 116 H Carbon Dioxide 19 L Anion Gap 15 BUN 27 H Creatinine 0.84 Estim Creat Clear Calc 49.2 Estimated GFR > 60 POC Glucose 200 H Random Glucose 215 H Calcium 8.1 L D 01/29/23 09:23 WBC RBC Hgb Hct MCV MCH MCHC RDW Plt Count MPV Absolute Nucleated RBC Nucleated RBC % (auto) Sodium Potassium Chloride Carbon Dioxide Anion Gap BUN Creatinine Estim Creat Clear Calc Estimated GFR POC Glucose 213 H Random Glucose Calcium Microbiology Microbiology Results: Microbiology 01/25/23 12:10 Blood - Venous Blood Culture - Preliminary No growth after 48 hours. 01/25/23 12:10 Blood - Venous Blood Culture - Preliminary No growth after 48 hours. 01/22/23 Unknown Urine clean catch - Urine perez top Urine Culture - Final Escherichia coli Strep agalactiae (Grp B) Procedures Date of Service Date of Service: 01/29/23 Assessment & Plan Assessment and plan (1) MAURICIO (acute kidney injury): Status: Acute (2) Hypernatremia: Status: Acute Plan elderly woman with dementia with hypernatremia and acute kidney injury. Hypernatremia due to free water deficit. Sodium is improved Acute kidney due to volume depletion. She might have sustained tubular injury as well. No evidence of obstruction thus far. Creatinine has improved Await PEG insertion today recommendations. Keep intake more than output. with 1/2NS Can discontinue IV fluids once PEG is inserted Continue to avoid nephrotoxins. Concur with current medical management Time Spent With Patient Time: Total time managing care of this patient today ____ minutes. Progress Note: Quality Stroke Does the patient have a stroke diagnosis?: No
--- NOTE | 2023-01-29 10:45 | W.PM.OPN ---
Operative Note Operative Note Date of Service: 01/29/23 Narrative: Preop diagnosis: Dementia, failure to thrive Postop diagnosis: The same Procedure: PEG tube placement Surgeon: Kvng Munson MD early childhood assistant: ELIECER Deluca The patient is an 82-year-old female with dementia, who has had very poor oral intake and failure to thrive. She was referred to [facility] for tube placement. The had given consent. He understood the technique of the procedure as well as the risks, benefits, and alternatives He the patient was brought to the operating room. She was placed supine under monitored anesthesia care. A bite block was in position. A surgical time-out was done. The bladder was noted to be very distended on palpation. The patient underwent straight catheterization and about 1300 cc of urine was drained. I then proceeded to insert the scope through the bite block into the oropharynx. The vocal cords were visualized. The esophageal slit was seen posterior to this. The esophageal slit was intubated. The scope was advanced through the entire length of the esophagus into the stomach. The stomach was insufflated. Transillumination on the epigastric area was easily seen. Furthermore, indentation on the anterior stomach wall was noted with pressure on the anterior abdominal wall with the index finger. This area on the epigastric region was prepped and draped. Lidocaine 1% was used for local anesthesia. A short stab incision was made. A large bore needle along with a plastic cannula was inserted and this was seen easily in the lumen of the stomach. The needle was removed. The guidewire was inserted through the cannula. The guidewire was grasped with a snare. The guidewire was pulled out all the way past the oral orifice. The peg tube was looped with the guidewire and the guidewire was pulled back to drag the PEG tube with this until this was snug on the anterior stomach wall. I reinserted the scope into the stomach lumen. The inner bolster was visualized. This appeared to be in good position. There was note of good hemostasis. There were no lesions seen in the stomach. The scope was then withdrawn completely. The patient tolerated The procedure well. There were no immediate complications. The external bolster was positioned to make this snug on the skin. The patient was then transferred to the recovery room with stable vital signs
--- NOTE | 2023-01-29 10:57 | MHC.CM.PN ---
Addendum entered by Annette English 01/29/23 12:11: [facility] REFERRAL MADE TO DETERMINE IF THERE IS ANY CHANCE PT WOULD BE OFFERED A BED Original Note: PT WILL HAVE A FEEDING TUBE PLACED TODAY PT NOT ELIGIBLE FOR STR SHE IS UNABLE TO FOLLOW CUES CM WILL DISCUSS VIABLE DC OPTIONS WITH S/O PER MD, PT WILL NOT BE CLEARED TO DC TODAY CM RECEIVED A CALL FROM THE [facility] REQUESTING AN UPDATE UPDATE PROVIDED PER THE [facility], REPORT FILED WHILE PT WAS IN THE ED THEY WILL F/U POST DC
--- NOTE | 2023-01-29 11:03 | HO.PM.IMPN ---
Subjective Subjective Date of Service: 01/29/23 Interval History: unable to obtain meaningful history due to advanced dementia patient in bed tossing and turning, going for G-tube placement. Review of Systems unable to obtain due to dementia. Physical Exam Vital Signs: Vital Signs: Last Vital Signs Temp 97.4 F 01/29/23 08:43 Pulse 89 01/29/23 08:43 Resp 20 01/29/23 08:43 BP 138/88 01/29/23 08:43 Pulse Ox 96 01/29/23 08:43 O2 Del Method Room Air 01/29/23 08:43 O2 Flow Rate 2 01/28/23 15:38 BMI result Body Mass Index 19.6 Const: Other: General? resting comfortably in no acute distress, when awake noted to be restless, mumbling. Neck? no JVD. CVS? regular rate rhythm, Respiratory lungs clear to auscultation, no respiratory distress, no wheeze, no rhonchi. Gastrointestinal abdomen soft, non tender, bowel sounds audible Extremities no edema. Neuro? move all 4 extremity, speech? garbled Skin no rash Objective Data Active Medications Acetaminophen (Acetaminophen 325 Mg Tablet) 650 mg PO Q6H PRN PRN Reason: Pain, Mild (Pain Scale 1-3) Aspirin (Aspirin Enteric Coated 325 Mg Tablet.Dr) 650 mg PO Q8H PRN PRN Reason: Chest Pain Dextrose (Dextrose 50 % 25 Gm/50 Ml Syringe) 25 gm IVPUSH Q15M PRN; Protocol PRN Reason: per Hypoglycemia Standing Ord. Enoxaparin Sodium (Enoxaparin Sodium 40 Mg/0.4 Ml Syringe) 40 mg SUBCUT Q24H [facility] Glucose (Glucose Gel 15 Gm Gel..Gram.) 15 gm PO Q15M PRN; Protocol PRN Reason: per Hypoglycemia Standing Ord. Ceftriaxone Sodium 1 gm/ (Sodium Chloride) 50 mls @ 100 mls/hr IV Q24H [facility] Last Admin: 01/29/23 09:28 Dose: Not Given Documented By: BEBE Non-Admin Reason: Off Unit: Surgery Sodium Chloride (Sodium Chloride 0.45 %) 1,000 mls @ 125 mls/hr IVCONT .Q8H [facility] Last Admin: 01/29/23 10:34 Dose: Not Given Documented By: BEBE Non-Admin Reason: Off Unit: Surgery Valproic Acid 125 mg/ Dextrose 51.25 mls @ 52.5 mls/hr IV Q12H [facility] Last Infusion: 01/29/23 08:41 Dose: 52.5 mls/hr Documented By: BEBE Lactated Ringer's (Lr) 1,000 mls @ 100 mls/hr IVCONT .Q10H [facility] Insulin Human Lispro (Insulin Lispro 100 Unit/Ml 3 Ml Vial) 0 unit SUBCUT QIDACHS [facility]; Protocol Last Admin: 01/29/23 07:34 Dose: Not Given Documented By: BEBE Non-Admin Reason: NPO Levothyroxine Sodium (Levothyroxine Sodium 100 Mcg/5 Ml Vial) 25 mcg IVPUSH DAILY@0600 [facility] Last Admin: 01/29/23 06:01 Dose: 25 mcg Documented By: DARLEEN Ondansetron HCl (Ondansetron Hcl 4 Mg/2 Ml Vial) 4 mg IVPUSH Q8H PRN PRN Reason: Nausea and Vomiting Sodium Chloride (0.9 % Sodium Chloride Flush 3 Ml Syringe) 3 ml IVFLUSH QSHIFT [facility] Last Admin: 01/29/23 07:41 Dose: 3 ml Documented By: BEBE Labs 01/29/23 05:04 01/29/23 05:04 Labs: Laboratory Results - last 24 hr 01/28/23 01/28/23 01/28/23 11:04 16:05 20:15 MCV MCH MCHC RDW Plt Count MPV Absolute Nucleated RBC Nucleated RBC % (auto) Anion Gap Estim Creat Clear Calc Estimated GFR POC Glucose 215 H 139 H 179 H Random Glucose Calcium 01/29/23 01/29/23 01/29/23 05:04 05:04 07:33 MCV 92.2 MCH 29.6 MCHC 32.1 RDW 12.7 Plt Count 146 L MPV 12.3 Absolute Nucleated RBC 0.000 Nucleated RBC % (auto) 0.0 Anion Gap 15 Estim Creat Clear Calc 49.2 Estimated GFR > 60 POC Glucose 200 H Random Glucose 215 H Calcium 8.1 L D 01/29/23 09:23 MCV MCH MCHC RDW Plt Count MPV Absolute Nucleated RBC Nucleated RBC % (auto) Anion Gap Estim Creat Clear Calc Estimated GFR POC Glucose 213 H Random Glucose Calcium Assessment and Plan (1) Hypernatremia: Status: Acute (2) MAURICIO (acute kidney injury): Status: Acute (3) Metabolic encephalopathy: Status: Acute (4) Dementia: Status: Acute (5) Acute UTI: Status: Acute Plan 82-year-old female found wandering outside her house brought to ER for confusion.? Agitated in route given ketamine with good effect.? Has remained somnolent but arousable throughout her ER stay.? Per staff is essentially advanced dementia as well and no helpful history could be obtained.? In the ER urine showed active sediment for which she was given empiric ceftriaxone.? She will be admitted to the general medical floor and followed there 1. Metabolic encephalopathy unspecified dementia, gradually progressing has gotten worsened in last few months, speech has become incoherent and garbled along with decrease hearing, as per healthcare proxy at baseline patient ambulates with walker and was able to eat. s/p 5 days of iv antibiotic for UTI, with no improvement in symptoms likely symptoms due to progression of dementia on IV levothyroxine , follow clinical course Will continue IV Depakote bid for behavioral issues Spoke with patient's significant other Robel Farias and updated him regarding patient's current clinical condition with advanced dementia, behavioral issues poor comprehension unable to redirect he wishes her to be full code, and wishes her to be back to her baseline status with ability to ambulate and eat ,explained to him that patient dementia is progressing and she seems to be at end-stage with speech impairment ,worsening confusion but he is insistent on G-tube placement and continued treatment for acute issues. general surgery consult obtained patient will undergo G-tube placement today by Dr. Munson, will transition all meds to G-tube. 2. E coli UTI (pansensitive) finish 5 day course of ceftriaxone 3. hypothyroidism TSH elevated , on IV levothyroxine 25 mg , recheck TSH in 6 weeks 4. acute on chronic kidney disease stage 3 patient status post nephrectomy at age 12, renal function improved continue IV fluids till G-tube feedings start 5. diabetes mellitus type 2 noted to have elevated blood sugars in 300s hemoglobin A1c greater than 11 patient not on treatment ,on correction dose insulin q.6 hours. 6. dysphagia NPO will undergo G-tube placement today , will obtain nutrition consult for G-tube feedings once ok with surgery. 7. hypernatremia likely due to poor by mouth intake , continue IV fluid 100 mL/hour follow bmp. Healthcare proxy invoked, since patient has advanced dementia and unable to make medical decisions patient's healthcare proxy is Robel Farias. Full code Lovenox Will need ongoing hospitalization due to dysphagia, advanced dementia undergoing G-tube placement need tube feedings. Time Spent With Patient Time: Total time managing care of this patient today ____ minutes. Quality Stroke Does the patient have a stroke diagnosis?: No VTE Prior VTE?: No VTE Risk Level:: Medical - moderate - high VTE Device Contraindication: N/A - Device Ordered VTE Drug Contraindication: Treatment Not Indicated
--- NOTE | 2023-01-29 11:05 | MHC.SLORD ---
Speech Language Pathology Order Status: Patient with PEG surgery/placement today; NPO. IRONER [employer] will continue to follow.
[2023-01-29] MEDS: Lactated Ringers 1,000 ML 100 ML IVCONT (15:30)
--- NOTE | 2023-01-29 15:40 | PM.EVENT ---
Event Note Date of Service: 01/29/23 Event Note: Seen on afternoon rounds Underwent PEG tube placement this morning Mental status unchanged Abdomen soft Stable vital signs Dressings dry Okay to start feeds tomorrow Rest of management as per hospitalist service Dany Granado updated Time Spent With Patient Time: Total time managing care of this patient today ____ minutes.
--- NOTE | 2023-01-29 15:47 | PC.NURSE ---
Addendum entered by Aydee Weinberg RN 01/29/23 15:48: Reddened fungal type rash noted to bilat buttocks. contacted for antifungal. Original Note:
[2023-01-29 16:13] LABS: Glucose, Whole Blood 169 mg/dL (60-115)
--- NOTE | 2023-01-29 16:13 | PC.NURSE ---
Dr. Schultz notified of a fungal rash present on patient bottom and need for nystatin cream,patient was bladder scanned for 557 ml ,Dr. Schultz made aware
[2023-01-29] MEDS: Insulin Lispro 100 UNIT/ML 3 ML VIAL SUBCUT ×2 (16:48→20:21)
[2023-01-29] MEDS: Sodium Chloride 0.45 % 1,000 ML 100 ML IVCONT (16:48)
[2023-01-29 19:48] LABS: Glucose, Whole Blood 201 mg/dL (60-115)
[2023-01-29] MEDS: Nystatin Cream 15 GM TUBE 1 APPL TOPICAL (20:22)
--- NOTE | 2023-01-29 21:52 | PC.NURSE ---
Attempted to provide [facility] care twice this shift but unable,patient was becoming agitated and spitting.
[2023-01-30] MEDS: OLANZapine 10 MG VIAL 5 MG IM (00:03)
[2023-01-30] MEDS: Sodium Chloride 0.45 % 1,000 ML 100 ML IVCONT ×3 (02:55→23:03)
[2023-01-30 03:00] VITALS: BP 145/58; PULSE 86; RESP 14; TEMP 36.1; O2SAT 96
[2023-01-30] MEDS: Levothyroxine Sodium 100 MCG/5 ML VIAL 25 MCG IVPUSH (05:06)
[2023-01-30 06:32] LABS: Anion Gap 18 (12-20); Blood Urea Nitrogen 14 mg/dL (9-16); Calcium 8.6 mg/dL (8.4-10.2); Carbon Dioxide 22 mmol/L (22-29); Chloride 108 mmol/L (96-108); Creatinine Clr Calc Pharmacy 64.6; Estimated Glomerular Filt Rate > 60; Glucose Random 176 mg/dL (60-115); Potassium 3.3 mmol/L (3.3-5.1); Sodium 145 mmol/L (135-145)
[2023-01-30 08:00] VITALS: BP 161/94; RESP 20; TEMP 36.2
--- NOTE | 2023-01-30 08:55 | P.PNGS_ITS ---
Subjective Subjective Date of Service: 01/30/23 Interval history: as per staff - no events overnight mental status the same Physical Exam 2 Vital Signs: Vital Signs: Last Vital Signs Temp 97.1 F 01/30/23 08:00 Pulse 86 01/30/23 03:00 Resp 20 01/30/23 08:00 BP 161/94 H 01/30/23 08:00 Pulse Ox 96 01/30/23 03:00 O2 Del Method Nasal Cannula 01/30/23 03:00 O2 Flow Rate 2 01/30/23 03:00 BMI result Body Mass Index 19.6 Const: Other: confused, restless, not communicative GI: Other: dressings dry Palpation (GI): Soft to palpation, not firm and no guarding Objective Data Active Medications Acetaminophen (Acetaminophen 325 Mg Tablet) 650 mg PO Q6H PRN PRN Reason: Pain, Mild (Pain Scale 1-3) Dextrose (Dextrose 50 % 25 Gm/50 Ml Syringe) 25 gm IVPUSH Q15M PRN; Protocol PRN Reason: per Hypoglycemia Standing Ord. Enoxaparin Sodium (Enoxaparin Sodium 40 Mg/0.4 Ml Syringe) 40 mg SUBCUT Q24H [facility] Glucose (Glucose Gel 15 Gm Gel..Gram.) 15 gm PO Q15M PRN; Protocol PRN Reason: per Hypoglycemia Standing Ord. Valproic Acid 125 mg/ Dextrose 51.25 mls @ 52.5 mls/hr IV Q12H [facility] Last Infusion: 01/29/23 21:47 Dose: 0 mls/hr Documented By: ELINOR Sodium Chloride (Sodium Chloride 0.45 %) 1,000 mls @ 100 mls/hr IVCONT .Q10H [facility] Last Admin: 01/30/23 02:55 Dose: 100 mls/hr Documented By: NORMA Insulin Human Lispro (Insulin Lispro 100 Unit/Ml 3 Ml Vial) 0 unit SUBCUT QIDACHS [facility]; Protocol Last Admin: 01/29/23 20:21 Dose: 4 unit Documented By: ELINOR Levothyroxine Sodium (Levothyroxine Sodium 100 Mcg/5 Ml Vial) 25 mcg IVPUSH DAILY@0600 [facility] Last Admin: 01/30/23 05:06 Dose: 25 mcg Documented By: NORMA Nystatin (Nystatin Cream 15 Gm Tube) 1 appl TOPICAL BID [facility]; Protocol Last Admin: 01/29/23 20:22 Dose: 1 appl Documented By: ELINOR Ondansetron HCl (Ondansetron Hcl 4 Mg/2 Ml Vial) 4 mg IVPUSH Q8H PRN PRN Reason: Nausea and Vomiting Sodium Chloride (0.9 % Sodium Chloride Flush 3 Ml Syringe) 3 ml IVFLUSH QSHIFT [facility] Last Admin: 01/29/23 23:39 Dose: Not Given Documented By: NORMA Non-Admin Reason: IV Running Labs 01/29/23 05:04 01/30/23 05:36 Labs: Laboratory Results - last 24 hr 01/29/23 01/29/23 01/29/23 09:23 16:04 19:42 Anion Gap Estim Creat Clear Calc Estimated GFR POC Glucose 213 H 169 H 201 H Random Glucose Calcium 01/30/23 05:36 Anion Gap 18 Estim Creat Clear Calc 64.6 Estimated GFR > 60 POC Glucose Random Glucose 176 H Calcium 8.6 D Procedures Date of Service Date of Service: 01/30/23 Progress Note: A&P Assessment and plan (1) Dementia: Status: Acute Assessment and Plan: S/P PEG placement ok to start tube feeds today pt has tendency to pull tubes - take precautions with regards to PEG keep external bolster snug on skin Time Spent With Patient Time: Total time managing care of this patient today ____ minutes. Quality Stroke Does the patient have a stroke diagnosis?: No VTE Prior VTE?: No VTE Risk Level:: Medical - moderate - high VTE Device Contraindication: N/A - Device Ordered VTE Drug Contraindication: Treatment Not Indicated
[2023-01-30] MEDS: Enoxaparin Sodium 40 MG/0.4 ML SYRINGE SUBCUT (09:06)
[2023-01-30] MEDS: Valproic Acid (as Sodium Salt) 125 MG in Dextrose 5 % 50 ML 51.25 MG IV (09:11)
[2023-01-30] MEDS: Nystatin Cream 15 GM TUBE 1 APPL TOPICAL ×2 (09:15→22:04)
--- NOTE | 2023-01-30 09:45 | MHC.CLN ---
NUTRITION PEG TUBE PLACED 01/29. STARTING TUBE FEEDING TODAY. NPO PER AIRFRAME TECHNICAL OFFICER ZOEY. LABS REVIEWED. PATIENT WITH A1c=11.5 ON 01/26 SHOWING POOR BLOOD GLUCOSE CONTROL. RECOMMEND GLUCERNA 1.0 AT MAX GOAL RATE 70 ML PER HOUR; FREE WATER FLUSH 120 ML Q 8 HOURS. PROVIDES 1680 KCALS (28.8 KCALS/KG); 70 G PROTEIN (1.2 G/KG), FREE WATER FROM FORMULA AND FVAFZ=6485 ML (30.7 ML/KG). START TF AT 20 ML PER HOUR, INCREASE EVERY 4 HOURS TO MAX GOAL RATE 70 ML PER HOUR. CHECK RESIDUALS Q 4 HOURS, HOLD 2 HOURS IF >250 ML. MONITOR TF TOLERANCE, RESIDUALS AND LABS.
[2023-01-30 10:18] VITALS: BMI 19.6
--- NOTE | 2023-01-30 10:24 | P.PNIM_ITS ---
Subjective Subjective Date of Service: 01/30/23 Interval History: Remains confused; nonverbal Review of Systems Unable to obtain Physical Exam Vital Signs: Vital Signs: Last Vital Signs Temp 97.1 F 01/30/23 08:00 Pulse 86 01/30/23 03:00 Resp 20 01/30/23 08:00 BP 161/94 H 01/30/23 08:00 Pulse Ox 96 01/30/23 03:00 O2 Del Method Nasal Cannula 01/30/23 03:00 O2 Flow Rate 2 01/30/23 03:00 BMI result Body Mass Index 19.6 Const: Other: Somnolent but arousable Resp: Other: Clear to auscultation bilaterally. No rales rhonchi or wheezes Cardio: Other: No S4; positive S1-S2; no S3 murmurs rubs gallops GI: Other: Soft nontender nondistended normoactive bowel sounds; PEG tube site clean dry and intact Extrem: Other: No edema bilaterally Objective Data Active Medications Acetaminophen (Acetaminophen 325 Mg Tablet) 650 mg PO Q6H PRN PRN Reason: Pain, Mild (Pain Scale 1-3) Dextrose (Dextrose 50 % 25 Gm/50 Ml Syringe) 25 gm IVPUSH Q15M PRN; Protocol PRN Reason: per Hypoglycemia Standing Ord. Enoxaparin Sodium (Enoxaparin Sodium 40 Mg/0.4 Ml Syringe) 40 mg SUBCUT Q24H [facility] Last Admin: 01/30/23 09:06 Dose: 40 mg Documented By: LEANDRO Glucose (Glucose Gel 15 Gm Gel..Gram.) 15 gm PO Q15M PRN; Protocol PRN Reason: per Hypoglycemia Standing Ord. Valproic Acid 125 mg/ Dextrose 51.25 mls @ 52.5 mls/hr IV Q12H [facility] Last Admin: 01/30/23 09:11 Dose: 51.25 mls/hr Documented By: LEANDRO Sodium Chloride (Sodium Chloride 0.45 %) 1,000 mls @ 100 mls/hr IVCONT .Q10H [facility] Last Admin: 01/30/23 02:55 Dose: 100 mls/hr Documented By: NORMA Insulin Human Lispro (Insulin Lispro 100 Unit/Ml 3 Ml Vial) 0 unit SUBCUT QIDACHS [facility]; Protocol Last Admin: 01/30/23 09:01 Dose: Not Given Documented By: LEANDRO Non-Admin Reason: NPO Levothyroxine Sodium (Levothyroxine Sodium 100 Mcg/5 Ml Vial) 25 mcg IVPUSH DAILY@0600 [facility] Last Admin: 01/30/23 05:06 Dose: 25 mcg Documented By: NORMA Nystatin (Nystatin Cream 15 Gm Tube) 1 appl TOPICAL BID [facility]; Protocol Last Admin: 01/30/23 09:15 Dose: 1 appl Documented By: LEANDRO Ondansetron HCl (Ondansetron Hcl 4 Mg/2 Ml Vial) 4 mg IVPUSH Q8H PRN PRN Reason: Nausea and Vomiting Sodium Chloride (0.9 % Sodium Chloride Flush 3 Ml Syringe) 3 ml IVFLUSH QSHIFT [facility] Last Admin: 01/30/23 09:07 Dose: Not Given Documented By: LEANDRO Non-Admin Reason: IV Running Labs 01/29/23 05:04 01/30/23 05:36 Labs: Laboratory Results - last 24 hr 01/29/23 01/29/23 01/30/23 16:04 19:42 05:36 Anion Gap 18 Estim Creat Clear Calc 64.6 Estimated GFR > 60 POC Glucose 169 H 201 H Random Glucose 176 H Calcium 8.6 D Assessment and Plan (1) Metabolic encephalopathy: Status: Acute (2) MAURICIO (acute kidney injury): Status: Acute Plan 82-year-old female found wandering outside her house brought to ER for confusion. Agitated in route given ketamine with good effect. Has remained somnolent but arousable throughout her ER stay. Per staff is essentia lly advanced dementia as well and no helpful history could be obtained. In the ER urine showed active sediment for which she was given empiric ceftriaxone. She will be admitted to the general medical floor and followed there 1. Metabolic encephalopathy/UTI -completed course of antibiotic without change and presentation -continue Depakote; titrate for behavior -will switch to PEG tube 2. E coli UTI (pansensitive) -completed antibiotics 3. MAURICIO -resolved. Follow [id number]/divalents 4.Dysphagia -PEG tube without issue -feeding starting today as per Nutrition Full code Lovenox Will need ongoing hospitalization to facilitate safe discharge Time Spent With Patient Time: Total time managing care of this patient today ____ minutes. Quality Stroke Does the patient have a stroke diagnosis?: No VTE Prior VTE?: No VTE Risk Level:: Medical - moderate - high VTE Device Contraindication: N/A - Device Ordered VTE Drug Contraindication: Treatment Not Indicated
[2023-01-30 12:00] VITALS: BP 139/69; PULSE 80; RESP 20; TEMP 36.1; O2SAT 96
[2023-01-30 12:16] LABS: Glucose, Whole Blood 174 mg/dL (60-115)
[2023-01-30] MEDS: Insulin Lispro 100 UNIT/ML 3 ML VIAL SUBCUT (13:09)
[2023-01-30] MEDS: Haloperidol Lactate 5 MG/ML VIAL 2.5 MG IM (14:30)
--- NOTE | 2023-01-30 14:36 | HO.POSTANES ---
Post Anesthesia Evaluation Post Anesthesia Evaluation Date of Service: 01/29/23 Vital Signs: Vital Signs Temp Pulse Resp BP Pulse Ox O2 Del Method O2 Flow Rate 01/30/23 12:00 96.9 F 80 20 139/69 96 Nasal Cannula 2 01/30/23 08:00 97.1 F 20 161/94 H 01/30/23 03:00 96.9 F 86 14 145/58 H 96 Nasal Cannula 2 Anesthesia: Monitored Mental Status: Awake Pain Control: Satisfactory Nausea/Vomiting: None Hydration: Adequate Anesthesia-Related Issues: No Anes. Related Issues
--- NOTE | 2023-01-30 15:35 | MHC.SLORD ---
Speech Language Pathology Order Status: Tube feeds starting today. [employer] MACHINE to hold off on PO trials at this time. Will continue to follow.
[2023-01-30 15:52] VITALS: BP 120/93; PULSE 80; RESP 20; TEMP 36.2; O2SAT 94
--- NOTE | 2023-01-30 17:17 | PM.PNNEP ---
Subjective Subjective Date of Service: 01/30/23 Interval history: Remains confused; nonverbal, was agitated and is now resting Physical Exam Vital Signs: Vital Signs: Last Vital Signs Temp 97.1 F 01/30/23 15:52 Pulse 80 01/30/23 15:52 Resp 20 01/30/23 15:52 BP 120/93 H 01/30/23 15:52 Pulse Ox 94 01/30/23 15:52 O2 Del Method Nasal Cannula 01/30/23 15:52 O2 Flow Rate 2 01/30/23 15:52 BMI result Body Mass Index 19.6 Const: Other: Somnolent but arousable General: no acute distress Resp: Other: Clear to auscultation bilaterally. No rales rhonchi or wheezes Effort & Inspection: normal respiratory effort Cardio: Other: No S4; positive S1-S2; no S3 murmurs rubs gallops Rate: regular rate and tachycardic GI: Other: Soft nontender nondistended normoactive bowel sounds; PEG tube site clean dry and intact Inspection: No distended Palpation (GI): Soft to palpation, not firm, nontender and no guarding Extrem: Other: No edema bilaterally Objective Data Labs 01/29/23 05:04 01/30/23 05:36 Labs: Laboratory Results - last 24 hr 01/29/23 01/30/23 01/30/23 19:42 05:36 12:11 Sodium 145 Potassium 3.3 Chloride 108 Carbon Dioxide 22 Anion Gap 18 BUN 14 Creatinine 0.64 Estim Creat Clear Calc 64.6 Estimated GFR > 60 POC Glucose 201 H 174 H Random Glucose 176 H Calcium 8.6 D Microbiology Microbiology Results: Microbiology 01/25/23 12:10 Blood - Venous Blood Culture - Final No growth after 5 days. 01/25/23 12:10 Blood - Venous Blood Culture - Final No growth after 5 days. 01/22/23 Unknown Urine clean catch - Urine perez top Urine Culture - Final Escherichia coli Strep agalactiae (Grp B) Procedures Date of Service Date of Service: 01/30/23 Assessment & Plan Assessment and plan (1) MAURICIO (acute kidney injury): Status: Acute (2) Acute hypokalemia: Status: Acute Plan 82-year-old female found wandering outside her house brought to ER for confusion. Agitated in route given ketamine with good effect. Had prerenal MAURICIO which has now resolved. Remains hypernatremic and mildly hypokalemic. Appears dehydrated. Recommend: IV D5W with 20 meq kcl/l at 100/hr Time Spent With Patient Time: Total time managing care of this patient today ____ minutes. Progress Note: Quality Stroke Does the patient have a stroke diagnosis?: No
[2023-01-30 19:40] VITALS: BP 165/67; PULSE 75; RESP 16; TEMP 36; O2SAT 96
--- NOTE | 2023-01-30 20:00 | PC.NURSE ---
PEG tube flushed with 120ml saline irrigate, checked for residual 0ml, and feed increased to 30ml/hr at this time.
[2023-01-30 21:07] LABS: Glucose, Whole Blood 138 mg/dL (60-115)
[2023-01-30] MEDS: Valproic Acid (as Sodium Salt) 125 MG in Dextrose 5 % 50 ML 52.5 MG IV (21:17)
[2023-01-30 23:36] VITALS: BP 140/67; PULSE 82; RESP 20; TEMP 36.1; O2SAT 94
[2023-01-31] MEDS: OLANZapine 10 MG VIAL 5 MG IM (02:07)
--- NOTE | 2023-01-31 02:09 | PC.NURSE ---
pt got agitated after straight cat. bladder was full 987, out put 1000 mL, now she is yelling, biting, and fighting with sitter. notified received 5mg Zyprexa. given by this nurse. will CONT monitor behave and any changes it.
[2023-01-31 02:50] VITALS: BP 178/72; PULSE 93; RESP 20; TEMP 36.4; O2SAT 93
[2023-01-31] MEDS: Levothyroxine Sodium 100 MCG/5 ML VIAL 25 MCG IVPUSH (06:24)
[2023-01-31 07:27] VITALS: BP 138/56; PULSE 77; RESP 18; TEMP 36; O2SAT 95
[2023-01-31 07:28] LABS: Glucose, Whole Blood 222 mg/dL (60-115)
[2023-01-31] MEDS: Insulin Lispro 100 UNIT/ML 3 ML VIAL SUBCUT ×4 (08:52→21:12)
[2023-01-31] MEDS: 0.9 % Sodium Chloride Flush 3 ML SYRINGE IVFLUSH (08:53)
[2023-01-31] MEDS: Valproic Acid (as Sodium Salt) 125 MG in Dextrose 5 % 50 ML 52.5 MG IV ×2 (08:54→21:12)
[2023-01-31] MEDS: Enoxaparin Sodium 40 MG/0.4 ML SYRINGE SUBCUT (09:04)
[2023-01-31] MEDS: Sodium Chloride 0.45 % 1,000 ML 100 ML IVCONT (10:07)
[2023-01-31 11:20] LABS: Glucose, Whole Blood 188 mg/dL (60-115)
[2023-01-31 11:50] VITALS: BP 131/59; PULSE 84; RESP 18; TEMP 36.2; O2SAT 96
--- NOTE | 2023-01-31 12:31 | HO.PM.IMPN ---
Subjective Subjective Date of Service: 01/31/23 Interval History: No acute issues overnight. Remains confused a one-to-one sitter Review of Systems Unable to obtain Physical Exam Vital Signs: Vital Signs: Last Vital Signs Temp 97.2 F 01/31/23 11:50 Pulse 84 01/31/23 11:50 Resp 18 01/31/23 11:50 BP 131/59 L 01/31/23 11:50 Pulse Ox 96 01/31/23 11:50 O2 Del Method Room Air 01/31/23 11:50 O2 Flow Rate 2 01/30/23 15:52 BMI result Body Mass Index 19.6 Const: Other: Somnolent but arousable Resp: Other: Clear to auscultation bilaterally. No rales rhonchi or wheezes Cardio: Other: No S4; positive S1-S2; no S3 murmurs rubs gallops GI: Other: Soft nontender nondistended normoactive bowel sounds; PEG tube site clean dry and intact Extrem: Other: No edema bilaterally Objective Data Active Medications Acetaminophen (Acetaminophen 325 Mg Tablet) 650 mg PO Q6H PRN PRN Reason: Pain, Mild (Pain Scale 1-3) Dextrose (Dextrose 50 % 25 Gm/50 Ml Syringe) 25 gm IVPUSH Q15M PRN; Protocol PRN Reason: per Hypoglycemia Standing Ord. Enoxaparin Sodium (Enoxaparin Sodium 40 Mg/0.4 Ml Syringe) 40 mg SUBCUT Q24H [facility] Last Admin: 01/31/23 09:04 Dose: 40 mg Documented By: SURESH Glucose (Glucose Gel 15 Gm Gel..Gram.) 15 gm PO Q15M PRN; Protocol PRN Reason: per Hypoglycemia Standing Ord. Valproic Acid 125 mg/ Dextrose 51.25 mls @ 52.5 mls/hr IV Q12H [facility] Last Infusion: 01/31/23 10:08 Dose: 0 mls/hr Documented By: SURESH Sodium Chloride (Sodium Chloride 0.45 %) 1,000 mls @ 100 mls/hr IVCONT .Q10H [facility] Last Admin: 01/31/23 10:07 Dose: 100 mls/hr Documented By: SURESH Insulin Human Lispro (Insulin Lispro 100 Unit/Ml 3 Ml Vial) 0 unit SUBCUT QIDACHS [facility]; Protocol Last Admin: 01/31/23 11:48 Dose: 2 unit Documented By: SURESH Levothyroxine Sodium (Levothyroxine Sodium 100 Mcg/5 Ml Vial) 25 mcg IVPUSH DAILY@0600 [facility] Last Admin: 01/31/23 06:24 Dose: 25 mcg Documented By: TANISHA Nystatin (Nystatin Cream 15 Gm Tube) 1 appl TOPICAL BID [facility]; Protocol Last Admin: 01/31/23 10:08 Dose: Not Given Documented By: SURESH Non-Admin Reason: Med Not Available Ondansetron HCl (Ondansetron Hcl 4 Mg/2 Ml Vial) 4 mg IVPUSH Q8H PRN PRN Reason: Nausea and Vomiting Sodium Chloride (0.9 % Sodium Chloride Flush 3 Ml Syringe) 3 ml IVFLUSH QSHIFT [facility] Last Admin: 01/31/23 08:53 Dose: 3 ml Documented By: SURESH Labs 01/29/23 05:04 01/30/23 05:36 Labs: Laboratory Results - last 24 hr 01/30/23 01/31/23 01/31/23 21:04 07:21 11:16 POC Glucose 138 H 222 H 188 H Microbiology Microbiology Results: Microbiology 01/25/23 12:10 Blood Culture - Final Blood - Venous No growth after 5 days. 01/25/23 12:10 Blood Culture - Final Blood - Venous No growth after 5 days. Assessment and Plan (1) Metabolic encephalopathy: Status: Acute (2) MAURICIO (acute kidney injury): Status: Acute (3) Dementia: Status: Acute Plan 82-year-old female found wandering outside her house brought to ER for confusion. Agitated in route given ketamine with good effect. Has remained somnolent but arousable throughout her ER stay. Per staff is essentially advanced dementia as well and no helpful history could be obtained. In the ER urine showed active sediment for which she was given empiric ceftriaxone. She will be admitted to the general medical floor and followed there 1. Metabolic encephalopathy/UTI -completed course of antibiotic without change and presentation -continue Depakote; titrate for behavior... Add p.r.n. is a as needed -feeding started as per Nutrition. Tolerating feedings well 2. E coli UTI (pansensitive) -completed antibiotics 3. MAURICIO -resolved. Follow [id number]/divalents 4.Dysphagia -PEG tube without issue -feeding initiated without issues Full code Lovenox Will need ongoing hospitalization to facilitate safe discharge Time Spent With Patient Time: Total time managing care of this patient today ____ minutes. Quality Stroke Does the patient have a stroke diagnosis?: No VTE Prior VTE?: No VTE Risk Level:: Medical - moderate - high VTE Device Contraindication: N/A - Device Ordered VTE Drug Contraindication: Treatment Not Indicated
[2023-01-31 15:18] VITALS: BP 131/60; PULSE 85; RESP 17; TEMP 36.7; O2SAT 96
[2023-01-31 16:18] LABS: Glucose, Whole Blood 163 mg/dL (60-115)
[2023-01-31 19:49] VITALS: BP 157/67; PULSE 90; RESP 20; TEMP 36.4; O2SAT 94
[2023-01-31 20:21] LABS: Glucose, Whole Blood 209 mg/dL (60-115)
[2023-01-31] MEDS: Nystatin Cream 15 GM TUBE 1 APPL TOPICAL (22:00)
[2023-02-01] VITALS (7 sets, daily range): BP systolic 100–159; BP diastolic 57–98; PULSE 70–86; RESP 16–20; TEMP 36.1–36.9; O2SAT 91–95
[2023-02-01] MEDS: Levothyroxine Sodium 100 MCG/5 ML VIAL 25 MCG IVPUSH (05:44)
[2023-02-01] MEDS: Haloperidol Lactate 5 MG/ML VIAL 2.5 MG IM (07:24)
[2023-02-01 07:34] LABS: Glucose, Whole Blood 231 mg/dL (60-115)
[2023-02-01] MEDS: Enoxaparin Sodium 40 MG/0.4 ML SYRINGE SUBCUT (07:53)
[2023-02-01] MEDS: 0.9 % Sodium Chloride Flush 3 ML SYRINGE IVFLUSH ×3 (07:54→20:15)
[2023-02-01] MEDS: Insulin Lispro 100 UNIT/ML 3 ML VIAL SUBCUT ×4 (07:54→21:48)
[2023-02-01] MEDS: Nystatin Cream 15 GM TUBE 1 APPL TOPICAL ×2 (07:55→21:48)
[2023-02-01] MEDS: Valproic Acid (as Sodium Salt) 125 MG in Dextrose 5 % 50 ML 52.5 MG IV ×2 (07:55→20:15)
[2023-02-01] MEDS: LORazepam 2 MG/ML VIAL 0.5 MG IVPUSH (08:00)
--- NOTE | 2023-02-01 08:32 | PM.PNNEP ---
Subjective Subjective Date of Service: 02/01/23 Interval history: No acute issues overnight. Remains confused aND AGITATED NEEDS one-to-one sitter Physical Exam Vital Signs: Vital Signs: Last Vital Signs Temp 98.1 F 02/01/23 07:27 Pulse 84 02/01/23 07:27 Resp 20 02/01/23 07:27 BP 158/98 H 02/01/23 07:27 Pulse Ox 94 02/01/23 07:27 O2 Del Method Room Air 02/01/23 07:27 O2 Flow Rate 2 01/30/23 15:52 BMI result Body Mass Index 19.6 Const: Other: Somnolent but arousable General: no acute distress Resp: Other: Clear to auscultation bilaterally. No rales rhonchi or wheezes Effort & Inspection: normal respiratory effort Cardio: Other: No S4; positive S1-S2; no S3 murmurs rubs gallops Rate: regular rate and tachycardic GI: Other: Soft nontender nondistended normoactive bowel sounds; PEG tube site clean dry and intact Inspection: No distended Palpation (GI): Soft to palpation, not firm, nontender and no guarding Extrem: Other: No edema bilaterally Objective Data Labs 01/29/23 05:04 01/30/23 05:36 Labs: Laboratory Results - last 24 hr 01/31/23 01/31/23 01/31/23 11:16 16:11 20:16 POC Glucose 188 H 163 H 209 H 02/01/23 07:30 POC Glucose 231 H Microbiology Microbiology Results: Microbiology 01/25/23 12:10 Blood - Venous Blood Culture - Final No growth after 5 days. 01/25/23 12:10 Blood - Venous Blood Culture - Final No growth after 5 days. 01/22/23 Unknown Urine clean catch - Urine perez top Urine Culture - Final Escherichia coli Strep agalactiae (Grp B) Procedures Date of Service Date of Service: 02/01/23 Assessment & Plan Assessment and plan (1) Hypernatremia: Status: Acute Assessment and Plan: POOR PO INTAKE, HAS ONGOING WATER DEFICIT (2) Acute hypokalemia: Status: Acute Assessment and Plan: LIKELY DUE TO POOR PO INTAKE Plan START D5 w WITH 40 MEQ/l KCL AT 75/HR WE WILL SIGN OFF, CALL IF FURTHER RENAL HELP NEEDED Time Spent With Patient Time: Total time managing care of this patient today ____ minutes. Progress Note: Quality Stroke Does the patient have a stroke diagnosis?: No
--- NOTE | 2023-02-01 11:15 | P.PNIM_ITS ---
Subjective Subjective Date of Service: 02/01/23 Interval History: Somewhat agitated requiring p.r.n. with good effect Review of Systems Unable to obtain Physical Exam Vital Signs: Vital Signs: Last Vital Signs Temp 98.1 F 02/01/23 07:27 Pulse 84 02/01/23 07:27 Resp 20 02/01/23 07:27 BP 158/98 H 02/01/23 07:27 Pulse Ox 94 02/01/23 07:27 O2 Del Method Room Air 02/01/23 07:27 O2 Flow Rate 2 01/30/23 15:52 BMI result Body Mass Index 19.6 Const: Other: Somnolent but arousable Resp: Other: Clear to auscultation bilaterally. No rales rhonchi or wheezes Cardio: Other: No S4; positive S1-S2; no S3 murmurs rubs gallops GI: Other: Soft nontender nondistended normoactive bowel sounds; PEG tube site clean dry and intact Extrem: Other: No edema bilaterally Objective Data Active Medications Acetaminophen (Acetaminophen 325 Mg Tablet) 650 mg PO Q6H PRN PRN Reason: Pain, Mild (Pain Scale 1-3) Dextrose (Dextrose 50 % 25 Gm/50 Ml Syringe) 25 gm IVPUSH Q15M PRN; Protocol PRN Reason: per Hypoglycemia Standing Ord. Enoxaparin Sodium (Enoxaparin Sodium 40 Mg/0.4 Ml Syringe) 40 mg SUBCUT Q24H [facility] Last Admin: 02/01/23 07:53 Dose: 40 mg Documented By: ALEXANDRA Glucose (Glucose Gel 15 Gm Gel..Gram.) 15 gm PO Q15M PRN; Protocol PRN Reason: per Hypoglycemia Standing Ord. Valproic Acid 125 mg/ Dextrose 51.25 mls @ 52.5 mls/hr IV Q12H [facility] Last Infusion: 02/01/23 10:46 Dose: 0 mls/hr Documented By: ALEXANDRA Insulin Human Lispro (Insulin Lispro 100 Unit/Ml 3 Ml Vial) [address] [facility]; Protocol Last Admin: 02/01/23 07:54 Dose: 4 unit Documented By: ALEXANDRA Levothyroxine Sodium (Levothyroxine Sodium 100 Mcg/5 Ml Vial) 25 mcg IVPUSH DAILY@0600 [facility] Last Admin: 02/01/23 05:44 Dose: 25 mcg Documented By: ANA Lorazepam (Lorazepam 2 Mg/Ml Vial) 0.5 mg IVPUSH Q4H PRN PRN Reason: anxiety/restlessness Last Admin: 02/01/23 08:00 Dose: 0.5 mg Documented By: ALEXANDRA Nystatin (Nystatin Cream 15 Gm Tube) 1 appl TOPICAL BID [facility]; Protocol Last Admin: 02/01/23 07:55 Dose: 1 appl Documented By: ALEXANDRA Ondansetron HCl (Ondansetron Hcl 4 Mg/2 Ml Vial) 4 mg IVPUSH Q8H PRN PRN Reason: Nausea and Vomiting Sodium Chloride (0.9 % Sodium Chloride Flush 3 Ml Syringe) 3 ml IVFLUSH QSHIFT [facility] Last Admin: 02/01/23 07:54 Dose: 3 ml Documented By: ALEXANDRA Labs 01/29/23 05:04 01/30/23 05:36 Labs: Laboratory Results - last 24 hr 01/31/23 01/31/23 01/31/23 11:16 16:11 20:16 POC Glucose 188 H 163 H 209 H 02/01/23 07:30 POC Glucose 231 H Assessment and Plan (1) Metabolic encephalopathy: Status: Acute Plan 82-year-old female found wandering outside her house brought to ER for confusion. Agitated in route given ketamine with good effect. Has remained somnolent but arousable throughout her ER stay. Per staff is essentially advanced dementia as well and no helpful history could be obtained. In the ER urine showed active sediment for which she was given empiric ceftriaxone. She will be admitted to the general medical floor and followed there 1. Metabolic encephalopathy/UTI -completed course of antibiotic without change and presentation -continue Depakote; titrate for behavior... Add p.r.n. is a as needed -feeding started as per Nutrition. Tolerating feedings well 2. E coli UTI (pansensitive) -completed antibiotics 3. MAURICIO -resolved. Follow [id number]/divalents 4.Dysphagia -PEG tube without issue -feeding initiated without issues Full code Lovenox Will need ongoing hospitalization to facilitate safe discharge Time Spent With Patient Time: Total time managing care of this patient today ____ minutes. Quality Stroke Does the patient have a stroke diagnosis?: No VTE Prior VTE?: No VTE Risk Level:: Medical - moderate - high VTE Device Contraindication: N/A - Device Ordered VTE Drug Contraindication: Treatment Not Indicated
[2023-02-01 11:28] LABS: Glucose, Whole Blood 239 mg/dL (60-115)
[2023-02-01 16:26] LABS: Glucose, Whole Blood 204 mg/dL (60-115)
[2023-02-01 21:03] LABS: Glucose, Whole Blood 209 mg/dL (60-115)
[2023-02-02] MEDS: LORazepam 2 MG/ML VIAL 0.5 MG IVPUSH ×2 (00:32→05:46)
[2023-02-02 03:52] VITALS: BP 132/83; PULSE 92; RESP 16; TEMP 36.3; O2SAT 96
[2023-02-02] MEDS: Levothyroxine Sodium 100 MCG/5 ML VIAL 25 MCG IVPUSH (04:54)
[2023-02-02 07:57] LABS: Glucose, Whole Blood 253 mg/dL (60-115)
[2023-02-02 08:00] VITALS: BP 115/82; PULSE 91; RESP 20; TEMP 36.2; O2SAT 96
[2023-02-02] MEDS: Insulin Lispro 100 UNIT/ML 3 ML VIAL SUBCUT ×4 (08:25→20:59)
[2023-02-02] MEDS: Valproic Acid (as Sodium Salt) 125 MG in Dextrose 5 % 50 ML 52.5 MG IV ×2 (08:25→20:59)
[2023-02-02] MEDS: Enoxaparin Sodium 40 MG/0.4 ML SYRINGE SUBCUT (08:25)
[2023-02-02] MEDS: 0.9 % Sodium Chloride Flush 3 ML SYRINGE IVFLUSH ×3 (08:26→21:00)
[2023-02-02] MEDS: Nystatin Cream 15 GM TUBE 1 APPL TOPICAL ×2 (08:34→21:00)
--- NOTE | 2023-02-02 09:54 | MHC.CLN ---
F/U PEG TUBE PLACED 01/29. TOLERATING TUBE FEEDING AT MAX GOAL RATE: GLUCERNA 1.0 AT MAX GOAL RATE 70 ML PER HOUR; FREE WATER FLUSH 120 ML Q 8 HOURS. PROVIDES 1680 KCALS (28.8 KCALS/KG); 70 G PROTEIN (1.2 G/KG), FREE WATER FROM FORMULA AND VDRKA=6285 ML (30.7 ML/KG). CONTINUE CURRENT TUBE FEED ORDER. MONITOR TF TOLERANCE, RESIDUALS AND LABS.
[2023-02-02 11:40] VITALS: BP 128/60; PULSE 75; RESP 16; TEMP 36.4; O2SAT 94
[2023-02-02 11:40] LABS: Glucose, Whole Blood 238 mg/dL (60-115)
--- NOTE | 2023-02-02 12:00 | HO.PM.IMPN ---
Subjective Subjective Date of Service: 02/02/23 Interval History: No acute changes overnight. Remains on one-to-one Review of Systems Unable to obtain Physical Exam Vital Signs: Vital Signs: Last Vital Signs Temp 97.6 F 02/02/23 11:40 Pulse 75 02/02/23 11:40 Resp 16 02/02/23 11:40 BP 128/60 02/02/23 11:40 Pulse Ox 94 02/02/23 11:40 O2 Del Method Room Air 02/02/23 11:40 O2 Flow Rate 2 01/30/23 15:52 BMI result Body Mass Index 19.6 Const: Other: Somnolent but arousable Resp: Other: Clear to auscultation bilaterally. No rales rhonchi or wheezes Cardio: Other: No S4; positive S1-S2; no S3 murmurs rubs gallops GI: Other: Soft nontender nondistended normoactive bowel sounds; PEG tube site clean dry and intact Extrem: Other: No edema bilaterally Objective Data Active Medications Acetaminophen (Acetaminophen 325 Mg Tablet) 650 mg PO Q6H PRN PRN Reason: Pain, Mild (Pain Scale 1-3) Dextrose (Dextrose 50 % 25 Gm/50 Ml Syringe) 25 gm IVPUSH Q15M PRN; Protocol PRN Reason: per Hypoglycemia Standing Ord. Enoxaparin Sodium (Enoxaparin Sodium 40 Mg/0.4 Ml Syringe) 40 mg SUBCUT Q24H [facility] Last Admin: 02/02/23 08:25 Dose: 40 mg Documented By: LAYO Glucose (Glucose Gel 15 Gm Gel..Gram.) 15 gm PO Q15M PRN; Protocol PRN Reason: per Hypoglycemia Standing Ord. Valproic Acid 125 mg/ Dextrose 51.25 mls @ 52.5 mls/hr IV Q12H [facility] Last Infusion: 02/02/23 09:30 Dose: 0 mls/hr Documented By: LAYO Insulin Human Lispro (Insulin Lispro 100 Unit/Ml 3 Ml Vial) 0 unit SUBCUT QIDACHS [facility]; Protocol Last Admin: 02/02/23 11:58 Dose: 4 unit Documented By: LAYO Levothyroxine Sodium (Levothyroxine Sodium 100 Mcg/5 Ml Vial) 25 mcg IVPUSH DAILY@0600 [facility] Last Admin: 02/02/23 04:54 Dose: 25 mcg Documented By: NORMA Lorazepam (Lorazepam 2 Mg/Ml Vial) 0.5 mg IVPUSH Q4H PRN PRN Reason: anxiety/restlessness Last Admin: 02/02/23 05:46 Dose: 0.5 mg Documented By: NORMA Nystatin (Nystatin Cream 15 Gm Tube) 1 appl TOPICAL BID [facility]; Protocol Last Admin: 02/02/23 08:34 Dose: 1 appl Documented By: LAYO Ondansetron HCl (Ondansetron Hcl 4 Mg/2 Ml Vial) 4 mg IVPUSH Q8H PRN PRN Reason: Nausea and Vomiting Sodium Chloride (0.9 % Sodium Chloride Flush 3 Ml Syringe) 3 ml IVFLUSH QSHIFT [facility] Last Admin: 02/02/23 08:26 Dose: 3 ml Documented By: LAYO Labs 01/29/23 05:04 01/30/23 05:36 Labs: Laboratory Results - last 24 hr 02/01/23 02/01/23 02/02/23 16:10 20:51 07:52 POC Glucose 204 H 209 H 253 H 02/02/23 11:35 POC Glucose 238 H Assessment and Plan (1) Metabolic encephalopathy: Status: Acute (2) Dementia: Status: Acute Plan 82-year-old female found wandering outside her house brought to ER for confusion. Agitated in route given ketamine with good effect. Has remained somnolent but arousable throughout her ER stay. Per staff is essentially advanced dementia as well and no helpful history could be obtained. In the ER urine showed active sediment for which she was given empiric ceftriaxone. She will be admitted to the general medical floor and followed there 1. Metabolic encephalopathy/UTI -completed course of antibiotic without change and presentation -continue Depakote; titrate for behavior... Add p.r.n. is a as needed -feeding started as per Nutrition. Tolerating feedings well 2. E coli UTI (pansensitive) -completed antibiotics 3. MAURICIO -resolved. Follow y1wxtun/divalents 4.Dysphagia -PEG tube without issue -feeding initiated without issues Full code Lovenox Will need ongoing hospitalization to facilitate safe discharge Time Spent With Patient Time: Total time managing care of this patient today ____ minutes. Quality Stroke Does the patient have a stroke diagnosis?: No VTE Prior VTE?: No VTE Risk Level:: Medical - moderate - high VTE Device Contraindication: N/A - Device Ordered VTE Drug Contraindication: Treatment Not Indicated
[2023-02-02 15:08] VITALS: BP 130/69; PULSE 80; RESP 16; TEMP 36.4; O2SAT 98
[2023-02-02 16:04] LABS: Glucose, Whole Blood 163 mg/dL (60-115)
--- NOTE | 2023-02-02 16:09 | MHC.SLORD ---
Speech Language Pathology Order Status: STATIC BALANCER attempted to see patient 2x this date to trial PO. Patient not appropriate for PO. STATIC BALANCER to continue to follow.
[2023-02-02 18:33] VITALS: BP 140/71; PULSE 79; RESP 16; TEMP 37.6; O2SAT 99
[2023-02-02 20:39] LABS: Glucose, Whole Blood 173 mg/dL (60-115)
[2023-02-03] VITALS: BP 131/62; PULSE 84; RESP 16; TEMP 36.6; O2SAT 96
[2023-02-03 04:00] VITALS: BP 137/77; PULSE 94; RESP 18; TEMP 36.2; O2SAT 92
[2023-02-03] MEDS: Levothyroxine Sodium 100 MCG/5 ML VIAL 25 MCG IVPUSH (06:31)
[2023-02-03 06:59] VITALS: BP 120/57; PULSE 90; RESP 19; TEMP 36.8; O2SAT 91
[2023-02-03 07:55] LABS: Glucose, Whole Blood 297 mg/dL (60-115)
[2023-02-03] MEDS: Enoxaparin Sodium 40 MG/0.4 ML SYRINGE SUBCUT (08:11)
[2023-02-03] MEDS: Valproic Acid (as Sodium Salt) 125 MG in Dextrose 5 % 50 ML 52.5 MG IV (08:12)
[2023-02-03] MEDS: Insulin Lispro 100 UNIT/ML 3 ML VIAL SUBCUT ×4 (08:12→20:46)
[2023-02-03] MEDS: Nystatin Cream 15 GM TUBE 1 APPL TOPICAL ×2 (08:17→20:48)
[2023-02-03] MEDS: 0.9 % Sodium Chloride Flush 3 ML SYRINGE IVFLUSH ×2 (08:21→20:47)
[2023-02-03 11:13] LABS: Glucose, Whole Blood 254 mg/dL (60-115)
--- NOTE | 2023-02-03 11:19 | MHC.CM.PN ---
EMR REVIEWED, CM CONTACTED PT'S /HCP TONI AT 10:42AM, TONI FEELS THAT HE IS UNABLE TO CARE FOR PT UNLESS HE HAD A 24HR NURSE AVAILABLE IN HOME. TONI DID VOICE CONCERNS REGARDING PT BEING ON HALDOL, PT DID RECEIVE HALDOL IM DOSES HOWEVER IS NOT CURRENTLY ON HALDOL. TONI REQUESTING TO SPEAK W/HOSPITALIST WHO HAS BEEN NOTIFIED VIA [facility]. TONI REPORTS HE IS STILL GATHERING INFORMATION FOR MH APPLICATION. Grows Up [facility] SHOWING INTEREST HOWEVER STILL AWAITING BED OFFER.
--- NOTE | 2023-02-03 12:10 | MHC.CLN ---
F/U TF FORMULA CHANGE DUE TO [employer] ISSUE PT CURRENTLY TOLERATING TUBE FEEDING GLUCERNA 1.0 AT MAX GOAL RATE 70 ML PER HOUR; FREE WATER FLUSH 120 ML Q 8 HOURS PROVIDES 1680 KCALS (28.8 KCALS/KG); 70 G PROTEIN (1.2 G/KG), FREE WATER FROM FORMULA AND WCXEK=6007 ML (30.7 ML/KG) RECOMMEND CHANGING TO JEVITY 1.0 AT MAX GOAL RATE 70ML/HR WITH 120ML FREE WATER FLUSHES Q 8 HRS TO PROVIDE 1781KCLAS (30KCALS/KG), 74G PROTEIN (1.3G/KG), 1763ML TOTAL WATER FROM FORMULA AND FLUSHES (30ML/KG) MONITOR TF TOLERANCE, RESIDUALS, BS AND LYTES
--- NOTE | 2023-02-03 12:54 | HO.PM.IMPN ---
Subjective Subjective Date of Service: 02/04/23 Interval History: no new changes Review of Systems no fevers overnight unable to obtain further info. Physical Exam Vital Signs: Vital Signs: Last Vital Signs Temp 98.2 F 02/03/23 06:59 Pulse 90 02/03/23 06:59 Resp 19 02/03/23 06:59 BP 120/57 L 02/03/23 06:59 Pulse Ox 91 L 02/03/23 06:59 O2 Del Method Room Air 02/03/23 06:59 O2 Flow Rate 2 01/30/23 15:52 BMI result Body Mass Index 19.6 Appearance:awake ,just stares cvs: rrr, [id number] . res: clear to auscultation ,no rhonchii or wheezing abd: soft ,nt, bs present. PEG tube site clean dry and intact ext pulses present , no cyanosis,no edema Objective Data Active Medications Acetaminophen (Acetaminophen 325 Mg Tablet) 650 mg PO Q6H PRN PRN Reason: Pain, Mild (Pain Scale 1-3) Dextrose (Dextrose 50 % 25 Gm/50 Ml Syringe) 25 gm IVPUSH Q15M PRN; Protocol PRN Reason: per Hypoglycemia Standing Ord. Enoxaparin Sodium (Enoxaparin Sodium 40 Mg/0.4 Ml Syringe) 40 mg SUBCUT Q24H [facility] Last Admin: 02/03/23 08:11 Dose: 40 mg Documented By: BRIANA Glucose (Glucose Gel 15 Gm Gel..Gram.) 15 gm PO Q15M PRN; Protocol PRN Reason: per Hypoglycemia Standing Ord. Insulin Human Lispro (Insulin Lispro 100 Unit/Ml 3 Ml Vial) 0 unit SUBCUT QIDACHS [facility]; Protocol Last Admin: 02/03/23 11:28 Dose: 6 unit Documented By: BRIANA Levothyroxine Sodium (Levothyroxine Sodium 25 Mcg Tablet) 25 mcg G-TUBE DAILY@0600 [facility] Lorazepam (Lorazepam 2 Mg/Ml Vial) 0.5 mg IVPUSH Q4H PRN PRN Reason: anxiety/restlessness Last Admin: 02/02/23 05:46 Dose: 0.5 mg Documented By: NORMA Nystatin (Nystatin Cream 15 Gm Tube) 1 appl TOPICAL BID [facility]; Protocol Last Admin: 02/03/23 08:17 Dose: 1 appl Documented By: HO.PRESTOS Ondansetron HCl (Ondansetron Hcl 4 Mg/2 Ml Vial) 4 mg IVPUSH Q8H PRN PRN Reason: Nausea and Vomiting Sodium Chloride (0.9 % Sodium Chloride Flush 3 Ml Syringe) 3 ml IVFLUSH QSHIFT [facility] Last Admin: 02/03/23 08:21 Dose: 3 ml Documented By: BRIANA Valproic Acid (Valproic Acid (As Sodium Salt) 250 Mg/5 Ml Solution) 125 mg G-TUBE BID [facility] Last Admin: 02/03/23 08:54 Dose: Not Given Documented By: BRIANA Non-Admin Reason: Previously Administered Labs 01/29/23 05:04 01/30/23 05:36 Labs: Laboratory Results - last 24 hr 02/02/23 02/02/23 02/03/23 15:58 20:34 07:51 POC Glucose 163 H 173 H 297 H 02/03/23 11:01 POC Glucose 254 H Assessment and Plan (1) Dementia: Status: Acute Plan 82-year-old female found wandering outside her house brought to ER for confusion.? Agitated in route given ketamine with good effect.? Has remained somnolent but arousable throughout her ER stay.? Per staff is essentially advanced dementia as well and no helpful history could be obtained.? In the ER urine showed active sediment for which she was given empiric ceftriaxone.? She will be admitted to the general medical floor and followed there 1. Metabolic encephalopathy/UTI completed course of antibiotic without change and presentation Depakote- titrate for behavior...? Add p.r.n. is a as needed -feeding started as per Nutrition.? Tolerating feedings well 2. E coli UTI (pansensitive) -completed antibiotics 3. MAURICIO -resolved. Follow [id number]/divalents 4.Dysphagia -PEG tube without issue -feeding initiated without issues Full code Lovenox above is discuused by hospitalist service with family -please refer to hospitalist note from 01/29. Will need ongoing hospitalization to facilitate safe discharge Time Spent With Patient Time: Total time managing care of this patient today ____ minutes. Quality Stroke Does the patient have a stroke diagnosis?: No VTE Prior VTE?: No VTE Risk Level:: Medical - moderate - high VTE Device Contraindication: N/A - Device Ordered VTE Drug Contraindication: Treatment Not Indicated
--- NOTE | 2023-02-03 13:44 | MHC.SPEECHCO ---
BOILERS INSPECTOR services signing off on this patient due to limited participation. Please re-refer if status changes.
[2023-02-03 14:45] VITALS: BP 149/85; PULSE 98; RESP 18; TEMP 36.5; O2SAT 98
[2023-02-03] MEDS: Fluconazole in NaCl,Iso-Osm 200 MG/100 ML PIGGYBACK 100 MG IV (14:59)
[2023-02-03 16:27] LABS: Glucose, Whole Blood 211 mg/dL (60-115)
[2023-02-03 20:00] VITALS: BP 132/63; PULSE 84; RESP 20; TEMP 36.1; O2SAT 93
[2023-02-03 20:46] LABS: Glucose, Whole Blood 210 mg/dL (60-115)
[2023-02-04 04:00] VITALS: BP 132/62; PULSE 74; RESP 20; TEMP 36.2; O2SAT 96
[2023-02-04] MEDS: Levothyroxine Sodium 25 MCG TABLET G-TUBE (05:56)
[2023-02-04 07:16] VITALS: BP 130/68; PULSE 74; RESP 17; TEMP 36.1; O2SAT 96
[2023-02-04 07:16] LABS: Glucose, Whole Blood 184 mg/dL (60-115)
[2023-02-04] MEDS: Insulin Lispro 100 UNIT/ML 3 ML VIAL SUBCUT ×4 (08:30→21:29)
[2023-02-04] MEDS: 0.9 % Sodium Chloride Flush 3 ML SYRINGE IVFLUSH ×3 (08:30→23:29)
[2023-02-04] MEDS: Enoxaparin Sodium 40 MG/0.4 ML SYRINGE SUBCUT (09:25)
[2023-02-04] MEDS: Nystatin Cream 15 GM TUBE 1 APPL TOPICAL ×2 (10:23→21:27)
--- NOTE | 2023-02-04 10:46 | MHC.CLN ---
F/U CONTINUES NPO WITH NUTRITION/HYDRATION VIA PEG. TOLERATING TUBE FEEDING AT MAX GOAL RATE. JEVITY 1.0 AT MAX GOAL RATE 70ML/HR WITH 120ML FREE WATER FLUSHES Q 8 HRS TO PROVIDE 1781KCALS (30KCALS/KG), 74G PROTEIN (1.3G/KG), 1763ML TOTAL WATER FROM FORMULA AND FLUSHES (30ML/KG). CONTINUE CURRENT TUBE FEED AND FLUSH. MONITOR TF TOLERANCE, RESIDUALS, BS AND LYTES.
[2023-02-04 11:31] LABS: Glucose, Whole Blood 256 mg/dL (60-115)
--- NOTE | 2023-02-04 14:14 | P.PNIM_ITS ---
Subjective Subjective Date of Service: 02/05/23 Interval History: no new changes Review of Systems no fevers overnight unable to obtain? further info. Remains on one-to-one Physical Exam 2 Vital Signs: Vital Signs: Last Vital Signs Temp 97 F 02/04/23 07:16 Pulse 74 02/04/23 07:16 Resp 17 02/04/23 07:16 BP 130/68 02/04/23 07:16 Pulse Ox 96 02/04/23 07:16 O2 Del Method Room Air 02/04/23 07:16 O2 Flow Rate 2 01/30/23 15:52 BMI result Body Mass Index 19.6 Appearance:awake ,just stares cvs: rrr, [id number] . res: clear to auscultation ,no rhonchii or wheezing abd: soft ,nt, bs present. PEG tube site clean dry and intact ext pulses present , no cyanosis,no edema Objective Data Active Medications Acetaminophen (Acetaminophen 325 Mg Tablet) 650 mg PO Q6H PRN PRN Reason: Pain, Mild (Pain Scale 1-3) Dextrose (Dextrose 50 % 25 Gm/50 Ml Syringe) 25 gm IVPUSH Q15M PRN; Protocol PRN Reason: per Hypoglycemia Standing Ord. Enoxaparin Sodium (Enoxaparin Sodium 40 Mg/0.4 Ml Syringe) 40 mg SUBCUT Q24H [facility] Last Admin: 02/04/23 09:25 Dose: 40 mg Documented By: SURESH Fluconazole (Fluconazole 100 Mg Tablet) 100 mg G-TUBE DAILY [facility] Glucose (Glucose Gel 15 Gm Gel..Gram.) 15 gm PO Q15M PRN; Protocol PRN Reason: per Hypoglycemia Standing Ord. Insulin Human Lispro (Insulin Lispro 100 Unit/Ml 3 Ml Vial) 0 unit SUBCUT QIDACHS [facility]; Protocol Last Admin: 02/04/23 12:33 Dose: 6 unit Documented By: SURESH Levothyroxine Sodium (Levothyroxine Sodium 25 Mcg Tablet) 25 mcg G-TUBE DAILY@0600 [facility] Last Admin: 02/04/23 05:56 Dose: 25 mcg Documented By: TIAGO Nystatin (Nystatin Cream 15 Gm Tube) 1 appl TOPICAL BID [facility]; Protocol Last Admin: 02/04/23 10:23 Dose: 1 appl Documented By: SURESH Ondansetron HCl (Ondansetron Hcl 4 Mg/2 Ml Vial) 4 mg IVPUSH Q8H PRN PRN Reason: Nausea and Vomiting Sodium Chloride (0.9 % Sodium Chloride Flush 3 Ml Syringe) 3 ml IVFLUSH QSHIFT [facility] Last Admin: 02/04/23 08:30 Dose: 3 ml Documented By: SURESH Valproic Acid (Valproic Acid (As Sodium Salt) 250 Mg/5 Ml Solution) 125 mg G- TUBE BID [facility] Last Admin: 02/04/23 09:26 Dose: 125 mg Documented By: SURESH Labs 01/29/23 05:04 02/04/23 13:42 Labs: Laboratory Results - last 24 hr 02/03/23 02/03/23 02/04/23 16:22 20:38 07:13 POC Glucose 211 H 210 H 184 H 02/04/23 11:17 POC Glucose 256 H Assessment and Plan (1) Dementia: Status: Acute Plan 82-year-old female found wandering outside her house brought to ER for confusion.? Agitated in route given ketamine with good effect.? Has remained somnolent but arousable throughout her ER stay.? Per staff is essentially advanced dementia as well and no helpful history could be obtained.? In the ER urine showed active sediment for which she was given empiric ceftriaxone.? She will be admitted to the general medical floor and followed there 1. Metabolic encephalopathy/UTI completed course of antibiotic without change and presentation Depakote- titrate for behavior...? Add p.r.n. is a as needed -feeding started as per Nutrition.? Tolerating feedings well 2. E coli UTI (pansensitive) -completed antibiotics 3. MAURICIO -resolved. Follow h2bchsy/divalents 4.Dysphagia -PEG tube without issue -feeding initiated without issues Full code Lovenox above is discuused by hospitalist service with family -please refer to hospitalist note from 01/29. Will need ongoing hospitalization to facilitate safe discharge Time Spent With Patient Time: Total time managing care of this patient today ____ minutes. Quality Stroke Does the patient have a stroke diagnosis?: No VTE Prior VTE?: No VTE Risk Level:: Medical - moderate - high VTE Device Contraindication: N/A - Device Ordered VTE Drug Contraindication: Treatment Not Indicated
[2023-02-04 14:16] LABS: Anion Gap 13 (12-20); Blood Urea Nitrogen 11 mg/dL (9-16); Calcium 9.1 mg/dL (8.4-10.2); Carbon Dioxide 28 mmol/L (22-29); Chloride 101 mmol/L (96-108); Creatinine Clr Calc Pharmacy 57.4; Estimated Glomerular Filt Rate > 60; Glucose Random 295 mg/dL (60-115); Potassium 3.5 mmol/L (3.3-5.1); Sodium 138 mmol/L (135-145)
[2023-02-04 15:03] LABS: Alanine Aminotransferase 17 U/L (0-31); Albumin Level 2.7 g/dL (3.5-5.0); Alkaline Phosphatase 91 U/L (39-117); Aspartate Amino Transferase 19 U/L (5-31); Bilirubin Direct 0.1 mg/dL (0.0-0.5); Bilirubin Total 0.3 mg/dL (0.0-1.0); Total Protein 5.8 g/dL (6.5-8.0)
[2023-02-04] MEDS: Fluconazole 100 MG TABLET G-TUBE (15:24)
[2023-02-04 15:52] VITALS: BP 138/79; PULSE 85; RESP 18; TEMP 37; O2SAT 96
[2023-02-04 16:36] LABS: Glucose, Whole Blood 261 mg/dL (60-115)
[2023-02-04 19:40] VITALS: BP 102/63; PULSE 80; RESP 18; TEMP 37.2; O2SAT 93
[2023-02-04 20:47] LABS: Glucose, Whole Blood 226 mg/dL (60-115)
[2023-02-04] MEDS: Acetaminophen 325 MG TABLET 650 MG PO (21:28)
[2023-02-05 03:45] VITALS: BP 161/99; PULSE 86; RESP 18; TEMP 36.4; O2SAT 98
[2023-02-05] MEDS: Levothyroxine Sodium 25 MCG TABLET G-TUBE (06:43)
[2023-02-05 07:19] VITALS: BP 138/64; PULSE 86; RESP 20; TEMP 36.2; O2SAT 95
[2023-02-05 08:01] LABS: Glucose, Whole Blood 374 mg/dL (60-115)
[2023-02-05] MEDS: Enoxaparin Sodium 40 MG/0.4 ML SYRINGE SUBCUT (08:06)
[2023-02-05] MEDS: 0.9 % Sodium Chloride Flush 3 ML SYRINGE IVFLUSH ×3 (08:06→23:35)
[2023-02-05] MEDS: Insulin Lispro 100 UNIT/ML 3 ML VIAL SUBCUT ×4 (08:08→23:35)
[2023-02-05] MEDS: Fluconazole 100 MG TABLET G-TUBE (08:47)
[2023-02-05] MEDS: Nystatin Cream 15 GM TUBE 1 APPL TOPICAL ×2 (08:53→21:00)
--- NOTE | 2023-02-05 10:24 | PC.NURSE ---
F/C removed at this time, tolerated well
[2023-02-05 11:48] LABS: Glucose, Whole Blood 278 mg/dL (60-115)
--- NOTE | 2023-02-05 14:52 | P.PNIM_ITS ---
Subjective Subjective Date of Service: 02/05/23 Interval History: no new changes Review of Systems no fevers overnight unable to obtain further info. Physical Exam 2 Vital Signs: Vital Signs: Last Vital Signs Temp 97.1 F 02/05/23 07:19 Pulse 86 02/05/23 07:19 Resp 20 02/05/23 07:19 BP 138/64 02/05/23 07:19 Pulse Ox 95 02/05/23 07:19 O2 Del Method Room Air 02/05/23 07:19 O2 Flow Rate 2 01/30/23 15:52 BMI result Body Mass Index 19.6 Appearance:awake ,just stares ,anxious oral thursh cvs: rrr, [id number] . res: clear to auscultation ,no rhonchii or wheezing abd: soft ,nt, bs present. PEG tube site clean dry and intact ext pulses present , no cyanosis,no edema Objective Data Active Medications Acetaminophen (Acetaminophen 325 Mg Tablet) 650 mg PO Q6H PRN PRN Reason: Pain, Mild (Pain Scale 1-3) Last Admin: 02/04/23 21:28 Dose: 650 mg Documented By: LETY Dextrose (Dextrose 50 % 25 Gm/50 Ml Syringe) 25 gm IVPUSH Q15M PRN; Protocol PRN Reason: per Hypoglycemia Standing Ord. Enoxaparin Sodium (Enoxaparin Sodium 40 Mg/0.4 Ml Syringe) 40 mg SUBCUT Q24H [facility] Last Admin: 02/05/23 08:06 Dose: 40 mg Documented By: ALON Fluconazole (Fluconazole 100 Mg Tablet) 100 mg G-TUBE DAILY [facility] Last Admin: 02/05/23 08:47 Dose: 100 mg Documented By: ALON Glucose (Glucose Gel 15 Gm Gel..Gram.) 15 gm PO Q15M PRN; Protocol PRN Reason: per Hypoglycemia Standing Ord. Insulin Human Lispro (Insulin Lispro 100 Unit/Ml 3 Ml Vial) 0 unit SUBCUT Q6H [facility]; Protocol Last Admin: 02/05/23 11:52 Dose: 6 unit Documented By: ALON Levothyroxine Sodium (Levothyroxine Sodium 25 Mcg Tablet) 25 mcg G-TUBE DAILY@0600 [facility] Last Admin: 02/05/23 06:43 Dose: 25 mcg Documented By: DARLEEN Nystatin (Nystatin Cream 15 Gm Tube) 1 appl TOPICAL BID [facility]; Protocol Last Admin: 02/05/23 08:53 Dose: 1 appl Documented By: ALON Ondansetron HCl (Ondansetron Hcl 4 Mg/2 Ml Vial) 4 mg IVPUSH Q8H PRN PRN Reason: Nausea and Vomiting Sodium Chloride (0.9 % Sodium Chloride Flush 3 Ml Syringe) 3 ml IVFLUSH QSHIFT [facility] Last Admin: 02/05/23 08:06 Dose: 3 ml Documented By: ALON Valproic Acid (Valproic Acid (As Sodium Salt) 250 Mg/5 Ml Solution) 125 mg G- TUBE BID [facility] Last Admin: 02/05/23 08:47 Dose: 125 mg Documented By: ALON Labs 01/29/23 05:04 02/04/23 13:42 Labs: Laboratory Results - last 24 hr 02/04/23 02/04/23 02/04/23 13:42 16:17 20:17 POC Glucose 261 H 226 H Total Bilirubin 0.3 Direct Bilirubin 0.1 AST 19 ALT 17 Alkaline Phosphatase 91 Total Protein 5.8 L Albumin 2.7 L 02/05/23 02/05/23 07:57 11:45 POC Glucose 374 H* 278 H Total Bilirubin Direct Bilirubin AST ALT Alkaline Phosphatase Total Protein Albumin Assessment and Plan (1) Dementia: Status: Acute (2) Hyperglycemia: Status: Acute Plan 82-year-old female found wandering outside her house brought to ER for confusion.? Agitated in route given ketamine with good effect.? Has remained somnolent but arousable throughout her ER stay.? Per staff is essentially advanced dementia as well and no helpful history could be obtained.? In the ER urine showed active sediment for which she was given empiric ceftriaxone.? She will be admitted to the general medical floor and followed there 1. Metabolic encephalopathy/UTI completed course of antibiotic without change and presentation Depakote- titrate for behavior...? Add p.r.n. is a as needed -feeding started as per Nutrition.? Tolerating feedings well 2. E coli UTI (pansensitive) -completed antibiotics 3. MAURICIO -resolved. Follow q5uvomn/divalents 4.Dysphagia -PEG tube without issue -feeding initiated without issues 5. oral thrush oral hygene on fluconazole (9/5) 6. dm with hyperglycemia : moniter fs with adjusted coverage. Full code Eden above is discuused by hospitalist service with family -please refer to hospitalist note from 01/29. Will need ongoing hospitalization to facilitate safe discharge Time Spent With Patient Time: Total time managing care of this patient today ____ minutes. Quality Stroke Does the patient have a stroke diagnosis?: No VTE Prior VTE?: No VTE Risk Level:: Medical - moderate - high VTE Device Contraindication: N/A - Device Ordered VTE Drug Contraindication: Treatment Not Indicated
[2023-02-05 15:43] VITALS: BP 140/64; PULSE 86; RESP 20; TEMP 36.7; O2SAT 96
[2023-02-05 16:48] LABS: Glucose, Whole Blood 286 mg/dL (60-115)
--- NOTE | 2023-02-05 18:35 | PC.NURSE ---
Strait Cath for 450cc. Pt tolerated well with the assistance of two budder's
[2023-02-05 19:46] VITALS: BP 123/78; PULSE 88; RESP 18; TEMP 36.4; O2SAT 93
[2023-02-05 20:23] LABS: Glucose, Whole Blood 260 mg/dL (60-115)
[2023-02-05] MEDS: Tamsulosin HCL 0.4 MG CAPSULE PO (20:59)
[2023-02-05 23:36] LABS: Glucose, Whole Blood 320 mg/dL (60-115)
[2023-02-06 03:18] VITALS: BP 148/107; PULSE 79; RESP 18; TEMP 36.3; O2SAT 95
[2023-02-06 05:15] LABS: Glucose, Whole Blood 241 mg/dL (60-115)
[2023-02-06] MEDS: Insulin Lispro 100 UNIT/ML 3 ML VIAL SUBCUT ×4 (05:21→23:40)
[2023-02-06] MEDS: Levothyroxine Sodium 25 MCG TABLET G-TUBE (05:22)
[2023-02-06] MEDS: Acetaminophen 325 MG TABLET 650 MG PO (05:24)
[2023-02-06 07:13] VITALS: BP 121/58; PULSE 70; RESP 20; TEMP 36.2; O2SAT 97
[2023-02-06] MEDS: 0.9 % Sodium Chloride Flush 3 ML SYRINGE IVFLUSH ×3 (09:45→20:58)
[2023-02-06] MEDS: Enoxaparin Sodium 40 MG/0.4 ML SYRINGE SUBCUT (09:45)
[2023-02-06] MEDS: Fluconazole 100 MG TABLET G-TUBE (09:46)
[2023-02-06] MEDS: Nystatin Cream 15 GM TUBE 1 APPL TOPICAL ×2 (09:59→20:57)
--- NOTE | 2023-02-06 10:17 | MHC.CLN ---
F/U PATIENT TOLERATING JEVITY TF AT 70 ML PER HOUR. GLUCERNA FORMULA IN STOCK. CHANGING FORMULA TO GLUCERNA DUE TO ELEVATED POC [id number]. RECOMMEND TUBE FEEDING AT MAX GOAL RATE: GLUCERNA 1.0 AT MAX GOAL RATE 70 ML PER HOUR; FREE WATER FLUSH 120 ML Q 8 HOURS. PROVIDES 1680 KCALS (28.8 KCALS/KG); 70 G PROTEIN (1.2 G/KG), FREE WATER FROM FORMULA AND [id number] ML (30.7 ML/KG). CONTINUE CURRENT TUBE FEED ORDER. MONITOR TF TOLERANCE, RESIDUALS AND LABS.
[2023-02-06 12:01] LABS: Glucose, Whole Blood 314 mg/dL (60-115)
--- NOTE | 2023-02-06 12:46 | P.PNIM_ITS ---
Subjective Subjective Date of Service: 02/06/23 Interval History: no new changes Review of Systems no fevers unable to obtain further info. Physical Exam 2 Vital Signs: Vital Signs: Last Vital Signs Temp 97.2 F 02/06/23 07:13 Pulse 70 02/06/23 07:13 Resp 20 02/06/23 07:13 BP 121/58 L 02/06/23 07:13 Pulse Ox 97 02/06/23 07:13 O2 Del Method Room Air 02/06/23 07:13 O2 Flow Rate 2 01/30/23 15:52 BMI result Body Mass Index 19.6 Appearance:awake ,just stares ,anxious oral thursh improving cvs: rrr, [id number] . res: clear to auscultation ,no rhonchii or wheezing abd: soft ,nt, bs present. PEG tube site clean dry and intact ext pulses present , no cyanosis,no edema Objective Data Active Medications Acetaminophen (Acetaminophen 325 Mg Tablet) 650 mg PO Q6H PRN PRN Reason: Pain, Mild (Pain Scale 1-3) Last Admin: 02/06/23 05:24 Dose: 650 mg Documented By: ANA Dextrose (Dextrose 50 % 25 Gm/50 Ml Syringe) 25 gm IVPUSH Q15M PRN; Protocol PRN Reason: per Hypoglycemia Standing Ord. Enoxaparin Sodium (Enoxaparin Sodium 40 Mg/0.4 Ml Syringe) 40 mg SUBCUT Q24H [facility] Last Admin: 02/06/23 09:45 Dose: 40 mg Documented By: JARED Fluconazole (Fluconazole 100 Mg Tablet) 100 mg G-TUBE DAILY [facility] Last Admin: 02/06/23 09:46 Dose: 100 mg Documented By: JARED Glucose (Glucose Gel 15 Gm Gel..Gram.) 15 gm PO Q15M PRN; Protocol PRN Reason: per Hypoglycemia Standing Ord. Insulin Human Lispro (Insulin Lispro 100 Unit/Ml 3 Ml Vial) 0 unit SUBCUT Q6H [facility]; Protocol Last Admin: 02/06/23 12:15 Dose: 10 unit Documented By: ELINOR Levothyroxine Sodium (Levothyroxine Sodium 25 Mcg Tablet) 25 mcg G-TUBE DAILY@0600 [facility] Last Admin: 02/06/23 05:22 Dose: 25 mcg Documented By: ANA Nystatin (Nystatin Cream 15 Gm Tube) 1 appl TOPICAL BID [facility]; Protocol Last Admin: 02/06/23 09:59 Dose: 1 appl Documented By: JARED Ondansetron HCl (Ondansetron Hcl 4 Mg/2 Ml Vial) 4 mg IVPUSH Q8H PRN PRN Reason: Nausea and Vomiting Sodium Chloride (0.9 % Sodium Chloride Flush 3 Ml Syringe) 3 ml IVFLUSH QSHIFT [facility] Last Admin: 02/06/23 09:45 Dose: 3 ml Documented By: JARED Tamsulosin HCl (Tamsulosin Hcl 0.4 Mg Capsule) 0.8 mg PO BEDTIME [facility] Valproic Acid (Valproic Acid (As Sodium Salt) 250 Mg/5 Ml Solution) 125 mg G- TUBE BID [facility] Last Admin: 02/06/23 09:47 Dose: 125 mg Documented By: JRAED Labs 01/29/23 05:04 02/04/23 13:42 Labs: Laboratory Results - last 24 hr 02/05/23 02/05/23 02/05/23 16:44 20:18 23:16 POC Glucose 286 H 260 H 320 H 02/06/23 02/06/23 05:11 11:37 POC Glucose 241 H 314 H Assessment and Plan (1) Dementia: Status: Acute (2) Hyperglycemia: Status: Acute Plan 82-year-old female found wandering outside her house brought to ER for confusion.? Agitated in route given ketamine with good effect.? Has remained somnolent but arousable throughout her ER stay.? Per staff is essentially advanced dementia as well and no helpful history could be obtained.? In the ER urine showed active sediment for which she was given empiric ceftriaxone.? She will be admitted to the general medical floor and followed there 1. Metabolic encephalopathy/UTI completed course of antibiotic without change and presentation Depakote- titrate for behavior...? Add p.r.n. is a as needed -feeding started as per Nutrition.? Tolerating feedings well 2. E coli UTI (pansensitive) -completed antibiotics 3. MAURICIO -resolved. Follow h8sgeaa/divalents 4.Dysphagia -PEG tube without issue -feeding initiated without issues 5. oral thrush oral hygene on fluconazole (02/03) 6. dm with hyperglycemia : moniter fs with adjusted coverage. Full code Eden above is discuused by hospitalist service with family -please refer to hospitalist note from 01/29. Will need ongoing hospitalization to facilitate safe discharge Time Spent With Patient Time: Total time managing care of this patient today ____ minutes. Quality Stroke Does the patient have a stroke diagnosis?: No VTE Prior VTE?: No VTE Risk Level:: Medical - moderate - high VTE Device Contraindication: N/A - Device Ordered VTE Drug Contraindication: Treatment Not Indicated
--- NOTE | 2023-02-06 15:05 | MHC.CM.PN ---
[facility] needed for LTC. A request was sent for a PT eval when appropriate. CM will follow.
[2023-02-06 15:08] VITALS: BP 127/57; PULSE 77; RESP 20; TEMP 36.3; O2SAT 97
[2023-02-06 17:05] LABS: Glucose, Whole Blood 239 mg/dL (60-115)
[2023-02-06 20:00] VITALS: BP 110/77; PULSE 85; RESP 18; TEMP 36.4; O2SAT 93
[2023-02-06] MEDS: Tamsulosin HCL 0.4 MG CAPSULE 0.8 MG PO (20:57)
[2023-02-06 23:17] LABS: Glucose, Whole Blood 226 mg/dL (60-115)
[2023-02-07 04:00] VITALS: BP 117/55; PULSE 93; RESP 18; TEMP 36.4; O2SAT 93
[2023-02-07 06:09] LABS: Glucose, Whole Blood 315 mg/dL (60-115)
[2023-02-07] MEDS: Levothyroxine Sodium 25 MCG TABLET G-TUBE (06:50)
[2023-02-07] MEDS: Insulin Lispro 100 UNIT/ML 3 ML VIAL SUBCUT ×4 (06:51→23:37)
[2023-02-07 07:31] VITALS: BP 121/58; PULSE 85; RESP 16; TEMP 36.4; O2SAT 94
[2023-02-07] MEDS: Enoxaparin Sodium 40 MG/0.4 ML SYRINGE SUBCUT (08:12)
[2023-02-07] MEDS: Fluconazole 100 MG TABLET G-TUBE (08:12)
[2023-02-07] MEDS: 0.9 % Sodium Chloride Flush 3 ML SYRINGE IVFLUSH ×3 (08:12→23:41)
[2023-02-07] MEDS: Nystatin Cream 15 GM TUBE 1 APPL TOPICAL ×2 (08:20→19:40)
[2023-02-07 11:07] LABS: Glucose, Whole Blood 237 mg/dL (60-115)
--- NOTE | 2023-02-07 13:30 | P.PNIM_ITS ---
Subjective Subjective Date of Service: 02/07/23 Interval History: no new changes Review of Systems no fevers unable to obtain further info. Physical Exam 2 Vital Signs: Vital Signs: Last Vital Signs Temp 97.6 F 02/07/23 07:31 Pulse 85 02/07/23 07:31 Resp 16 02/07/23 07:31 BP 121/58 L 02/07/23 07:31 Pulse Ox 94 02/07/23 07:31 O2 Del Method Room Air 02/07/23 07:31 O2 Flow Rate 2 01/30/23 15:52 BMI result Body Mass Index 19.6 Appearance:awake ,just stares ,anxious oral thursh improving cvs: rrr, [id number] . res: clear to auscultation ,no rhonchii or wheezing abd: soft ,nt, bs present. PEG tube site clean dry and intact ext pulses present , no cyanosis,no edema Objective Data Active Medications Acetaminophen (Acetaminophen 325 Mg Tablet) 650 mg PO Q6H PRN PRN Reason: Pain, Mild (Pain Scale 1-3) Last Admin: 02/06/23 05:24 Dose: 650 mg Documented By: ANA Dextrose (Dextrose 50 % 25 Gm/50 Ml Syringe) 25 gm IVPUSH Q15M PRN; Protocol PRN Reason: per Hypoglycemia Standing Ord. Enoxaparin Sodium (Enoxaparin Sodium 40 Mg/0.4 Ml Syringe) 40 mg SUBCUT Q24H [facility] Last Admin: 02/07/23 08:12 Dose: 40 mg Documented By: BEBE Fluconazole (Fluconazole 100 Mg Tablet) 100 mg G-TUBE DAILY [facility] Last Admin: 02/07/23 08:12 Dose: 100 mg Documented By: BEBE Glucose (Glucose Gel 15 Gm Gel..Gram.) 15 gm PO Q15M PRN; Protocol PRN Reason: per Hypoglycemia Standing Ord. Insulin Human Lispro (Insulin Lispro 100 Unit/Ml 3 Ml Vial) 0 unit SUBCUT Q6H [facility]; Protocol Last Admin: 02/07/23 11:32 Dose: 6 unit Documented By: BEBE Levothyroxine Sodium (Levothyroxine Sodium 25 Mcg Tablet) 25 mcg G-TUBE DAILY@0600 [facility] Last Admin: 02/07/23 06:50 Dose: 25 mcg Documented By: KAELYN Nystatin (Nystatin Cream 15 Gm Tube) 1 appl TOPICAL BID [facility]; Protocol Last Admin: 02/07/23 08:20 Dose: 1 appl Documented By: BEBE Ondansetron HCl (Ondansetron Hcl 4 Mg/2 Ml Vial) 4 mg IVPUSH Q8H PRN PRN Reason: Nausea and Vomiting Sodium Chloride (0.9 % Sodium Chloride Flush 3 Ml Syringe) 3 ml IVFLUSH QSHIFT [facility] Last Admin: 02/07/23 08:12 Dose: 3 ml Documented By: BEBE Tamsulosin HCl (Tamsulosin Hcl 0.4 Mg Capsule) 0.8 mg PO BEDTIME [facility] Last Admin: 02/06/23 20:57 Dose: 0.8 mg Documented By: LYSMari Valproic Acid (Valproic Acid (As Sodium Salt) 250 Mg/5 Ml Solution) 125 mg G- TUBE BID [facility] Last Admin: 02/07/23 08:11 Dose: 125 mg Documented By: BEBE Labs 01/29/23 05:04 02/04/23 13:42 Labs: Laboratory Results - last 24 hr 02/06/23 02/06/23 02/07/23 17:01 23:12 06:05 POC Glucose 239 H 226 H 315 H 02/07/23 10:58 POC Glucose 237 H Assessment and Plan (1) Dementia: Status: Acute (2) Hyperglycemia: Status: Acute Plan 82-year-old female found wandering outside her house brought to ER for confusion.? Agitated in route given ketamine with good effect.? Has remained somnolent but arousable throughout her ER stay.? Per staff is essentially advanced dementia as well and no helpful history could be obtained.? In the ER urine showed active sediment for which she was given empiric ceftriaxone.? She will be admitted to the general medical floor and followed there 1. Metabolic encephalopathy/UTI completed course of antibiotic without change and presentation Depakote- titrate for behavior...? Add p.r.n. is a as needed -feeding started as per Nutrition.? Tolerating feedings well 2. E coli UTI (pansensitive) -completed antibiotics 3. MAURICIO -resolved. Follow v3igzdn/divalents 4.Dysphagia -PEG tube without issue -feeding initiated without issues 5. oral thrush oral hygene on fluconazole (02/03) 6. dm with hyperglycemia : moniter fs with adjusted coverage. Full code Karlynox above is discuused by hospitalist service with family -please refer to hospitalist note from 01/29. Will need ongoing hospitalization to facilitate safe discharge Time Spent With Patient Time: Total time managing care of this patient today ____ minutes. Quality Stroke Does the patient have a stroke diagnosis?: No VTE Prior VTE?: No VTE Risk Level:: Medical - moderate - high VTE Device Contraindication: N/A - Device Ordered VTE Drug Contraindication: Treatment Not Indicated
[2023-02-07 15:12] VITALS: BP 114/79; PULSE 91; RESP 18; TEMP 36.3
[2023-02-07 17:04] LABS: Glucose, Whole Blood 248 mg/dL (60-115)
[2023-02-07] MEDS: Tamsulosin HCL 0.4 MG CAPSULE 0.8 MG PO (19:31)
[2023-02-07 19:50] VITALS: BP 132/77; PULSE 86; RESP 17; TEMP 36.3; O2SAT 94
[2023-02-07 23:07] LABS: Glucose, Whole Blood 247 mg/dL (60-115)
[2023-02-08] MEDS: Acetaminophen 325 MG TABLET 650 MG PO (03:00)
[2023-02-08 04:00] VITALS: BP 118/57; PULSE 81; RESP 17; TEMP 36.2; O2SAT 96
[2023-02-08 05:30] LABS: Glucose, Whole Blood 258 mg/dL (60-115)
[2023-02-08] MEDS: Insulin Lispro 100 UNIT/ML 3 ML VIAL SUBCUT ×4 (05:58→22:57)
[2023-02-08] MEDS: Levothyroxine Sodium 25 MCG TABLET G-TUBE (05:58)
[2023-02-08 07:44] VITALS: BP 117/56; PULSE 76; RESP 18; TEMP 36.7; O2SAT 96
[2023-02-08] MEDS: Insulin Glargine,Hum.rec.anlog 100 UNIT/ML 10 ML VIAL SUBCUT (09:00)
[2023-02-08] MEDS: Fluconazole 100 MG TABLET G-TUBE (09:00)
[2023-02-08] MEDS: Enoxaparin Sodium 40 MG/0.4 ML SYRINGE SUBCUT (09:00)
[2023-02-08] MEDS: Nystatin Cream 15 GM TUBE 1 APPL TOPICAL ×2 (09:01→20:29)
[2023-02-08] MEDS: 0.9 % Sodium Chloride Flush 3 ML SYRINGE IVFLUSH ×3 (09:01→20:29)
[2023-02-08 10:59] LABS: Glucose, Whole Blood 63 mg/dL (60-115)
[2023-02-08] MEDS: Glucose Gel 15 GM GEL..GRAM. PO (11:18)
[2023-02-08 11:39] LABS: Glucose, Whole Blood 91 mg/dL (60-115)
--- NOTE | 2023-02-08 12:19 | HO.PM.IMPN ---
Subjective Subjective Date of Service: 02/08/23 Interval History: no new changes Review of Systems awake, intermitetnt agitated,unable to obtain further info. Physical Exam Vital Signs: Vital Signs: Last Vital Signs Temp 98.0 F 02/08/23 07:44 Pulse 76 02/08/23 07:44 Resp 18 02/08/23 07:44 BP 117/56 L 02/08/23 07:44 Pulse Ox 96 02/08/23 07:44 O2 Del Method Room Air 02/08/23 07:44 O2 Flow Rate 2 01/30/23 15:52 BMI result Body Mass Index 19.6 Appearance:awake ,anxious oral thursh improving cvs: rrr, [id number] . res: clear to auscultation ,no rhonchii or wheezing abd: soft ,nt, bs present. PEG tube site clean dry and intact ext pulses present , no cyanosis,no edema Objective Data Active Medications Acetaminophen (Acetaminophen 325 Mg Tablet) 650 mg PO Q6H PRN PRN Reason: Pain, Mild (Pain Scale 1-3) Last Admin: 02/08/23 03:00 Dose: 650 mg Documented By: DAVE Dextrose (Dextrose 50 % 25 Gm/50 Ml Syringe) 25 gm IVPUSH Q15M PRN; Protocol PRN Reason: per Hypoglycemia Standing Ord. Enoxaparin Sodium (Enoxaparin Sodium 40 Mg/0.4 Ml Syringe) 40 mg SUBCUT Q24H [facility] Last Admin: 02/08/23 09:00 Dose: 40 mg Documented By: BEBE Fluconazole (Fluconazole 100 Mg Tablet) 100 mg G-TUBE DAILY [facility] Last Admin: 02/08/23 09:00 Dose: 100 mg Documented By: BEBE Glucose (Glucose Gel 15 Gm Gel..Gram.) 15 gm PO Q15M PRN; Protocol PRN Reason: per Hypoglycemia Standing Ord. Last Admin: 02/08/23 11:18 Dose: 15 gm Documented By: BEBE Insulin Human Lispro (Insulin Lispro 100 Unit/Ml 3 Ml Vial) 0 unit SUBCUT Q6H [facility]; Protocol Last Admin: 02/08/23 08:59 Dose: 8 unit Documented By: BEBE Levothyroxine Sodium (Levothyroxine Sodium 25 Mcg Tablet) 25 mcg G-TUBE DAILY@0600 [facility] Last Admin: 02/08/23 05:58 Dose: 25 mcg Documented By: DAVE Nystatin (Nystatin Cream 15 Gm Tube) 1 appl TOPICAL BID [facility]; Protocol Last Admin: 02/08/23 09:01 Dose: 1 appl Documented By: BEBE Ondansetron HCl (Ondansetron Hcl 4 Mg/2 Ml Vial) 4 mg IVPUSH Q8H PRN PRN Reason: Nausea and Vomiting Sodium Chloride (0.9 % Sodium Chloride Flush 3 Ml Syringe) 3 ml IVFLUSH QSHIFT [facility] Last Admin: 02/08/23 09:01 Dose: 3 ml Documented By: BEBE Tamsulosin HCl (Tamsulosin Hcl 0.4 Mg Capsule) 0.8 mg PO BEDTIME [facility] Last Admin: 02/07/23 19:31 Dose: 0.8 mg Documented By: TIAGO Valproic Acid (Valproic Acid (As Sodium Salt) 250 Mg/5 Ml Solution) 125 mg G-TUBE BID [facility] Last Admin: 02/08/23 09:00 Dose: 125 mg Documented By: BEBE Labs 01/29/23 05:04 02/04/23 13:42 Labs: Laboratory Results - last 24 hr 02/07/23 02/07/23 02/08/23 16:59 23:02 05:25 POC Glucose 248 H 247 H 258 H 02/08/23 02/08/23 10:55 11:36 POC Glucose 63 91 Assessment and Plan (1) Dementia: Status: Acute Plan 82-year-old female found wandering outside her house brought to ER for confusion.? Agitated in route given ketamine with good effect.? Has remained somnolent but arousable throughout her ER stay.? Per staff is essentially advanced dementia as well and no helpful history could be obtained.? In the ER urine showed active sediment for which she was given empiric ceftriaxone.? She will be admitted to the general medical floor and followed there 1. Metabolic encephalopathy/UTI completed course of antibiotic without change and presentation Depakote- titrate for behavior...? Add p.r.n. is a as needed -feeding started as per Nutrition.? Tolerating feedings well 2. E coli UTI (pansensitive) -completed antibiotics 3. MAURICIO -resolved. Follow c6jkaoc/divalents 4.Dysphagia -PEG tube without issue -feeding initiated without issues 5. oral thrush oral hygene on fluconazole (02/03) 6. dm with hyperglycemia : fs fluctuatin hba1c around 12.5 in 01/21 flactuating fs - hold lantus use dextrose prn moniter fs with adjusted coverage. Full code Lovenox above is discussed with patient family . Will need ongoing hospitalization to facilitate safe discharge Time Spent With Patient Time: Total time managing care of this patient today ____ minutes. Quality Stroke Does the patient have a stroke diagnosis?: No VTE Prior VTE?: No VTE Risk Level:: Medical - moderate - high VTE Device Contraindication: N/A - Device Ordered VTE Drug Contraindication: Treatment Not Indicated
[2023-02-08 15:42] VITALS: BP 164/74; RESP 18; TEMP 36.5
[2023-02-08 16:54] LABS: Glucose, Whole Blood 217 mg/dL (60-115)
--- NOTE | 2023-02-08 17:36 | PC.NURSE ---
Tube feeding was not running, checked for residual, measured less than 10cc, flushed line with 120cc water, re-started tube feed at 70 cc/hr
[2023-02-08] MEDS: Tamsulosin HCL 0.4 MG CAPSULE 0.8 MG PO (20:29)
[2023-02-08 20:41] LABS: Glucose, Whole Blood 178 mg/dL (60-115)
[2023-02-08 20:47] VITALS: BP 120/72
[2023-02-08 22:36] LABS: Glucose, Whole Blood 234 mg/dL (60-115)
[2023-02-09 00:40] VITALS: PULSE 80; TEMP 36.1
[2023-02-09 04:00] VITALS: BP 100/62; PULSE 80; RESP 20; TEMP 36.3; O2SAT 98
[2023-02-09 05:39] LABS: Glucose, Whole Blood 247 mg/dL (60-115)
[2023-02-09] MEDS: Insulin Lispro 100 UNIT/ML 3 ML VIAL SUBCUT ×3 (05:39→17:38)
[2023-02-09] MEDS: Levothyroxine Sodium 25 MCG TABLET G-TUBE (05:40)
[2023-02-09 08:00] VITALS: BP 166/62; PULSE 88; RESP 20; TEMP 37; O2SAT 98
--- NOTE | 2023-02-09 10:29 | MHC.CLN ---
F/U NPO WITH TUBE FEEDING. POC CONTINUES TO FLUCTUATE WITH RANGE 02/08-02/09=[id number]. TOLERATING GLUCERNA 1.0 AT MAX GOAL RATE 70 ML PER HOUR. GLUCERNA 1.0 AT MAX GOAL RATE 70 ML PER HOUR; FREE WATER FLUSH 120 ML Q 8 HOURS. PROVIDES 1680 KCALS (28.8 KCALS/KG); 70 G PROTEIN (1.2 G/KG), FREE WATER FROM FORMULA AND [id number] ML (30.7 ML/KG). CONTINUE CURRENT TUBE FEED ORDER. MONITOR TF TOLERANCE, RESIDUALS AND LABS.
[2023-02-09] MEDS: Enoxaparin Sodium 40 MG/0.4 ML SYRINGE SUBCUT (10:53)
[2023-02-09] MEDS: Fluconazole 100 MG TABLET G-TUBE (10:53)
[2023-02-09] MEDS: 0.9 % Sodium Chloride Flush 3 ML SYRINGE IVFLUSH ×2 (10:54→23:00)
[2023-02-09] MEDS: Nystatin Cream 15 GM TUBE 1 APPL TOPICAL ×2 (10:55→19:33)
[2023-02-09 11:26] LABS: Glucose, Whole Blood 265 mg/dL (60-115)
--- NOTE | 2023-02-09 13:48 | P.PNIM_ITS ---
Subjective Subjective Date of Service: 02/09/23 Interval History: no new changes Review of Systems awake, intermitetnt agitated,unable to obtain further info. Physical Exam 2 Vital Signs: Vital Signs: Last Vital Signs Temp 98.6 F 02/09/23 08:00 Pulse 88 02/09/23 08:00 Resp 20 02/09/23 08:00 BP 166/62 H 02/09/23 08:00 Pulse Ox 98 02/09/23 08:00 O2 Del Method Nasal Cannula 02/09/23 08:00 O2 Flow Rate 2 01/30/23 15:52 BMI result Body Mass Index 19.6 Appearance:awake ,anxious oral thursh improving cvs: rrr, [id number] . res: clear to auscultation ,no rhonchii or wheezing abd: soft ,nt, bs present. PEG tube site clean dry and intact ext pulses present , no cyanosis,no edema Objective Data Active Medications Acetaminophen (Acetaminophen 325 Mg Tablet) 650 mg PO Q6H PRN PRN Reason: Pain, Mild (Pain Scale 1-3) Last Admin: 02/08/23 03:00 Dose: 650 mg Documented By: DAVE Dextrose (Dextrose 50 % 25 Gm/50 Ml Syringe) 25 gm IVPUSH Q15M PRN; Protocol PRN Reason: per Hypoglycemia Standing Ord. Enoxaparin Sodium (Enoxaparin Sodium 40 Mg/0.4 Ml Syringe) 40 mg SUBCUT Q24H [facility] Last Admin: 02/09/23 10:53 Dose: 40 mg Documented By: ALON Fluconazole (Fluconazole 100 Mg Tablet) 100 mg G-TUBE DAILY [facility] Last Admin: 02/09/23 10:53 Dose: 100 mg Documented By: ALON Glucose (Glucose Gel 15 Gm Gel..Gram.) 15 gm PO Q15M PRN; Protocol PRN Reason: per Hypoglycemia Standing Ord. Last Admin: 02/08/23 11:18 Dose: 15 gm Documented By: BEBE Insulin Human Lispro (Insulin Lispro 100 Unit/Ml 3 Ml Vial) 0 unit SUBCUT Q6H [facility]; Protocol Last Admin: 02/09/23 11:04 Dose: 8 unit Documented By: ALON Levothyroxine Sodium (Levothyroxine Sodium 25 Mcg Tablet) 25 mcg G-TUBE DAILY@0600 [facility] Last Admin: 02/09/23 05:40 Dose: 25 mcg Documented By: TANISHA Nystatin (Nystatin Cream 15 Gm Tube) 1 appl TOPICAL BID [facility]; Protocol Last Admin: 02/09/23 10:55 Dose: 1 appl Documented By: ALON Ondansetron HCl (Ondansetron Hcl 4 Mg/2 Ml Vial) 4 mg IVPUSH Q8H PRN PRN Reason: Nausea and Vomiting Sodium Chloride (0.9 % Sodium Chloride Flush 3 Ml Syringe) 3 ml IVFLUSH QSHIFT [facility] Last Admin: 02/09/23 10:54 Dose: 3 ml Documented By: ALON Tamsulosin HCl (Tamsulosin Hcl 0.4 Mg Capsule) 0.8 mg PO BEDTIME [facility] Last Admin: 02/08/23 20:29 Dose: 0.8 mg Documented By: TANISHA Valproic Acid (Valproic Acid (As Sodium Salt) 250 Mg/5 Ml Solution) 125 mg G- TUBE BID [facility] Last Admin: 02/09/23 10:53 Dose: 125 mg Documented By: ALON Labs 01/29/23 05:04 02/04/23 13:42 Labs: Laboratory Results - last 24 hr 02/08/23 02/08/23 02/08/23 16:49 20:25 22:31 POC Glucose 217 H 178 H 234 H 02/09/23 02/09/23 05:28 10:55 POC Glucose 247 H 265 H Assessment and Plan (1) Dementia: Status: Acute Plan 82-year-old female found wandering outside her house brought to ER for confusion.? Agitated in route given ketamine with good effect.? Has remained somnolent but arousable throughout her ER stay.? Per staff is essentially advanced dementia as well and no helpful history could be obtained.? In the ER urine showed active sediment for which she was given empiric ceftriaxone.? She will be admitted to the general medical floor and followed there 1. Metabolic encephalopathy/UTI completed course of antibiotic without change and presentation Depakote- titrate for behavior...? Add p.r.n. is a as needed -feeding started as per Nutrition.? Tolerating feedings well 2. E coli UTI (pansensitive) -completed antibiotics 3. MAURICIO -resolved. Follow h7lyssa/divalents 4.Dysphagia -PEG tube without issue -feeding initiated without issues 5. oral thrush oral hygene on fluconazole (02/03) 6. dm with hyperglycemia : fs fluctuatin hba1c around 12.5 in 01/21 flactuating fs - hold lantus use dextrose prn moniter fs with adjusted coverage. Full code Lovenox above is discussed with patient family . Will need ongoing hospitalization to facilitate safe discharge Time Spent With Patient Time: Total time managing care of this patient today ____ minutes. Quality Stroke Does the patient have a stroke diagnosis?: No VTE Prior VTE?: No VTE Risk Level:: Medical - moderate - high VTE Device Contraindication: N/A - Device Ordered VTE Drug Contraindication: Treatment Not Indicated
[2023-02-09 15:32] VITALS: BP 108/49; PULSE 75; RESP 20; TEMP 36.1; O2SAT 99
--- NOTE | 2023-02-09 16:11 | PM.EVENT ---
Event Note Date of Service: 02/09/23 Event Note: psych consult received due to agitation s/s to dementia. Discussed with attending Dr. Castaneda hold off seeing pt until tomorrow. Depakote is new medication for her. recommend checking ammonia- which can be increased with depakote. Time Spent With Patient Time: Total time managing care of this patient today ____ minutes.
[2023-02-09 17:09] LABS: Glucose, Whole Blood 213 mg/dL (60-115)
[2023-02-09 18:55] LABS: Ammonia 20 umol/L (13-55)
[2023-02-09] MEDS: Tamsulosin HCL 0.4 MG CAPSULE 0.8 MG PO (19:36)
[2023-02-09 20:00] VITALS: BP 135/90; PULSE 93; RESP 20; TEMP 36.2; O2SAT 97
[2023-02-09 21:26] LABS: Glucose, Whole Blood 128 mg/dL (60-115)
[2023-02-09 23:24] LABS: Glucose, Whole Blood 183 mg/dL (60-115)
[2023-02-09 23:44] VITALS: BP 127/60; PULSE 86; RESP 18; TEMP 36.2; O2SAT 97
--- NOTE | 2023-02-10 03:52 | PC.NURSE ---
pt biting and picking the lips and bleeding and scabbing, notified. will monitor behavior.
[2023-02-10 04:29] LABS: Glucose, Whole Blood 275 mg/dL (60-115)
[2023-02-10] MEDS: Insulin Lispro 100 UNIT/ML 3 ML VIAL SUBCUT ×4 (04:53→22:36)
[2023-02-10] MEDS: Levothyroxine Sodium 25 MCG TABLET G-TUBE (04:54)
[2023-02-10 07:24] VITALS: BP 118/59; PULSE 74; RESP 16; TEMP 36.2; O2SAT 94
--- NOTE | 2023-02-10 08:18 | P.PNIM_ITS ---
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 res: clear to auscultation ,no rhonchii or wheezing abd: soft ,nt, bs present. PEG tube site clean dry and intact ext pulses present , no cyanosis,no edema Objective Data Active Medications Acetaminophen (Acetaminophen 325 Mg Tablet) 650 mg PO Q6H PRN PRN Reason: Pain, Mild (Pain Scale 1-3) Last Admin: 02/08/23 03:00 Dose: 650 mg Documented By: DAVE Bacitracin (Bacitracin Oint 14 Gm Tube) 1 appl TOPICAL BID [facility]; Protocol Dextrose (Dextrose 50 % 25 Gm/50 Ml Syringe) 25 gm IVPUSH Q15M PRN; Protocol PRN Reason: per Hypoglycemia Standing Ord. Enoxaparin Sodium (Enoxaparin Sodium 40 Mg/0.4 Ml Syringe) 40 mg SUBCUT Q24H [facility] Last Admin: 02/09/23 10:53 Dose: 40 mg Documented By: ALON Fluconazole (Fluconazole 100 Mg Tablet) 100 mg G-TUBE DAILY [facility] Last Admin: 02/09/23 10:53 Dose: 100 mg Documented By: ALON Glucose (Glucose Gel 15 Gm Gel..Gram.) 15 gm PO Q15M PRN; Protocol PRN Reason: per Hypoglycemia Standing Ord. Last Admin: 02/08/23 11:18 Dose: 15 gm Documented By: BEBE Insulin Human Lispro (Insulin Lispro 100 Unit/Ml 3 Ml Vial) 0 unit SUBCUT Q6H [facility]; Protocol Last Admin: 02/10/23 04:53 Dose: 8 unit Documented By: TANISHA Levothyroxine Sodium (Levothyroxine Sodium 25 Mcg Tablet) 25 mcg G-TUBE DAILY@0600 [facility] Last Admin: 02/10/23 04:54 Dose: 25 mcg Documented By: TANISHA Nystatin (Nystatin Cream 15 Gm Tube) 1 appl TOPICAL BID [facility]; Protocol Last Admin: 02/09/23 19:33 Dose: 1 appl Documented By: NORMA Ondansetron HCl (Ondansetron Hcl 4 Mg/2 Ml Vial) 4 mg IVPUSH Q8H PRN PRN Reason: Nausea and Vomiting Sodium Chloride (0.9 % Sodium Chloride Flush 3 Ml Syringe) 3 ml IVFLUSH QSHIFT [facility] Last Admin: 02/09/23 23:00 Dose: 3 ml Documented By: TANISHA Tamsulosin HCl (Tamsulosin Hcl 0.4 Mg Capsule) 0.8 mg PO BEDTIME [facility] Last Admin: 02/09/23 19:36 Dose: 0.8 mg Documented By: NORMA Valproic Acid (Valproic Acid (As Sodium Salt) 250 Mg/5 Ml Solution) 125 mg G- TUBE BID [facility] Last Admin: 02/09/23 19:35 Dose: 125 mg Documented By: NORMA Labs 01/29/23 05:04 02/04/23 13:42 Labs: Laboratory Results - last 24 hr 02/09/23 02/09/23 02/09/23 10:55 17:05 18:41 POC Glucose 265 H 213 H Ammonia 20 02/09/23 02/09/23 02/10/23 21:22 23:13 04:25 POC Glucose 128 H 183 H 275 H Ammonia Assessment and Plan (1) Dementia: Status: Acute (2) Metabolic encephalopathy: Status: Acute Plan 82-year-old female found wandering outside her house brought to ER for confusion.? Agitated in route given ketamine with good effect.? Has remained somnolent but arousable throughout her ER stay.? Per staff is essentially advanced dementia as well and no helpful history could be obtained.? In the ER urine showed active sediment for which she was given empiric ceftriaxone.? She will be admitted to the general medical floor and followed there 1. Metabolic encephalopathy, persistent despite treatment for UTI. 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 Control agiation as needed. Continue Depakote and follow ammonia level 2. E coli UTI (pansensitive) -completed antibiotics 3. MAURICIO--resolved. 4.Dysphagia--PEG on 01/29, tolerating feed 5. oral thrush oral hygene on fluconazole (02/03) 6. Diabetes/hyperglycemia--insulin Full code Lovenox need for inpt: placement Time Spent With Patient Time: Total time managing care of this patient today ____ minutes. Quality Stroke Does the patient have a stroke diagnosis?: No VTE Prior VTE?: No VTE Risk Level:: Medical - moderate - high VTE Device Contraindication: N/A - Device Ordered VTE Drug Contraindication: Treatment Not Indicated
[2023-02-10] MEDS: Bacitracin Oint 14 GM TUBE 1 APPL TOPICAL ×2 (09:40→21:58)
[2023-02-10] MEDS: Enoxaparin Sodium 40 MG/0.4 ML SYRINGE SUBCUT (09:40)
[2023-02-10] MEDS: Fluconazole 100 MG TABLET G-TUBE (09:40)
[2023-02-10] MEDS: 0.9 % Sodium Chloride Flush 3 ML SYRINGE IVFLUSH ×2 (09:40→17:12)
[2023-02-10] MEDS: Nystatin Cream 15 GM TUBE 1 APPL TOPICAL ×2 (09:41→21:31)
[2023-02-10 11:23] LABS: Glucose, Whole Blood 186 mg/dL (60-115)
[2023-02-10 16:00] VITALS: BP 113/60; PULSE 88; RESP 16; TEMP 36.1; O2SAT 94
--- NOTE | 2023-02-10 16:40 | PM.PSYCN ---
History of Present Illness Date of Service: 02/10/2023 Chief Complaint: altered mental status Reason for Consult: combative behaviors Requesting physician: Joann Castaneda Sources of Information: patient interviewed, chart reviewed and crisis/core team assessment reviewed HPI Narrative: Mrs. Keys is a 82 year-old woman with hx of advanced dementia. Consult place due to increase combative behaviors in evening, especially when direct care is provided. Pt was started on depakote 125mg BID. ammonia wnl. Pt seen in bed. She mostly mumbles unintelligible sounds, at times few clear enunciation of word. Pt appears fidgety, grabbing blanket, twisting it, then looking at her fingers. She does not appear in any physical distress aside from some mild restlessness. RN reports pt requires 2-3 person assist to provide direct care at which point pt can become more agitated. She does not ambulate and not trying to get out of bed. [facility] Medical History (Updated 02/11/23 @ 10:22 by Linnea Sylvester) Foot pain, bilateral Diabetes Surgical History (Updated 01/29/23 @ 10:42 by Natalie Eid MD) History of cardiac cath Diagnostics Vital Signs (24Hr): Vital Signs - 24 hr 02/09/23 20:00 02/09/23 23:44 02/10/23 07:24 Temperature 97.2 F 97.2 F 97.1 F Pulse Rate 93 86 74 Respiratory Rate 20 18 16 Blood Pressure 135/90 H 127/60 118/59 L Pulse Oximetry 97 97 94 Oxygen Delivery Method Room Air Room Air Room Air 02/10/23 16:00 Temperature 97.0 F Pulse Rate 88 Respiratory Rate 16 Blood Pressure 113/60 Pulse Oximetry 94 Oxygen Delivery Method Room Air BMI result Body Mass Index 19.6 Labs 01/29/23 05:04 02/04/23 13:42 Labs: Laboratory Results - last 48 hr 02/08/23 02/08/23 02/08/23 16:49 20:25 22:31 POC Glucose 217 H 178 H 234 H Ammonia 02/09/23 02/09/23 02/09/23 05:28 10:55 17:05 POC Glucose 247 H 265 H 213 H Ammonia 02/09/23 02/09/23 02/09/23 18:41 21:22 23:13 POC Glucose 128 H 183 H Ammonia 20 02/10/23 02/10/23 04:25 11:15 POC Glucose 275 H 186 H Ammonia Imaging Radiology Impressions: ITS Impressions Head CT 01/22/23 11:39 IMPRESSION: No acute intracranial pathology. [facility] X-Ray 01/23/23 17:55 IMPRESSION: Nonspecific gastric dilatation, differential considerations include postprandial state, gastroparesis or gastric outlet obstruction. Slightly prominent gaseous distention of both small and large bowel which could be seen with ileus. Overall, nonobstructive bowel gas pattern of the small and large bowel. Mental Status Exam Mental Status Exam Narrative: Pt in bed, mumbles unintelligible. Fidgety. Unable to obtain any information from patient. In no acute distress, but mild restlessness evidenced by grabbing and pulling blanket without clear purpose. Medications Medications Current Medications Acetaminophen (Acetaminophen 325 Mg Tablet) 650 mg PO Q6H PRN PRN Reason: Pain, Mild (Pain Scale 1-3) Last Admin: 02/08/23 03:00 Dose: 650 mg Bacitracin (Bacitracin Oint 14 Gm Tube) 1 appl TOPICAL BID [facility]; Protocol Last Admin: 02/10/23 09:40 Dose: 1 appl Dextrose (Dextrose 50 % 25 Gm/50 Ml Syringe) 25 gm IVPUSH Q15M PRN; Protocol PRN Reason: per Hypoglycemia Standing Ord. Enoxaparin Sodium (Enoxaparin Sodium 40 Mg/0.4 Ml Syringe) 40 mg SUBCUT Q24H [facility] Last Admin: 02/10/23 09:40 Dose: 40 mg Fluconazole (Fluconazole 100 Mg Tablet) 100 mg G-TUBE DAILY [facility] Last Admin: 02/10/23 09:40 Dose: 100 mg Glucose (Glucose Gel 15 Gm Gel..Gram.) 15 gm PO Q15M PRN; Protocol PRN Reason: per Hypoglycemia Standing Ord. Last Admin: 02/08/23 11:18 Dose: 15 gm Insulin Human Lispro (Insulin Lispro 100 Unit/Ml 3 Ml Vial) 0 unit SUBCUT Q6H [facility]; Protocol Last Admin: 02/10/23 12:08 Dose: 2 unit Levothyroxine Sodium (Levothyroxine Sodium 25 Mcg Tablet) 25 mcg G-TUBE DAILY@0600 [facility] Last Admin: 02/10/23 04:54 Dose: 25 mcg Nystatin (Nystatin Cream 15 Gm Tube) 1 appl TOPICAL BID [facility]; Protocol Last Admin: 02/10/23 09:41 Dose: 1 appl Ondansetron HCl (Ondansetron Hcl 4 Mg/2 Ml Vial) 4 mg IVPUSH Q8H PRN PRN Reason: Nausea and Vomiting Sodium Chloride (0.9 % Sodium Chloride Flush 3 Ml Syringe) 3 ml IVFLUSH QSHIFT [facility] Last Admin: 02/10/23 09:40 Dose: 3 ml Tamsulosin HCl (Tamsulosin Hcl 0.4 Mg Capsule) 0.8 mg PO BEDTIME [facility] Last Admin: 02/09/23 19:36 Dose: 0.8 mg Valproic Acid (Valproic Acid (As Sodium Salt) 250 Mg/5 Ml Solution) 125 mg G-TUBE BID [facility] Last Admin: 02/10/23 09:40 Dose: 125 mg Allergies Allergies Allergy/AdvReac Type Severity Reaction Status Date / Time No Known Allergies Allergy Verified 01/24/23 00:05 Assessment & Plan Assessment & Plan (1) Major neurocognitive disorder: Status: Acute Code(s): F03.90 - Unspecified dementia, unspecified severity, without behavioral disturbance, psychotic disturbance, mood disturbance, and anxiety Plan Mrs. Keys is an 82 year-old woman with advanced dementia. Consult to psych due to increase combative behaviors in the evening. She was started on depakote 125mg po BID on the 6th. Ammonia levels wnl. Pt has low albumin levels, therefore recommend checking free depakote leve and can consider adjusting dose of depakote if continued combative behaviors. Total time managing care of this patient today ____ minutes.
[2023-02-10 16:54] LABS: Glucose, Whole Blood 251 mg/dL (60-115)
[2023-02-10 20:00] VITALS: BP 120/65; PULSE 70; RESP 16; TEMP 36.2; O2SAT 94
[2023-02-10] MEDS: Tamsulosin HCL 0.4 MG CAPSULE 0.8 MG PO (21:30)
[2023-02-10 22:33] LABS: Glucose, Whole Blood 189 mg/dL (60-115)
[2023-02-11] MEDS: 0.9 % Sodium Chloride Flush 3 ML SYRINGE IVFLUSH ×4 (01:11→21:11)
[2023-02-11 04:00] VITALS: BP 130/62; PULSE 70; RESP 16; TEMP 36.7; O2SAT 94
[2023-02-11] MEDS: Levothyroxine Sodium 25 MCG TABLET G-TUBE (05:16)
[2023-02-11 05:49] LABS: Glucose, Whole Blood 208 mg/dL (60-115)
[2023-02-11] MEDS: Insulin Lispro 100 UNIT/ML 3 ML VIAL SUBCUT ×4 (06:02→23:32)
--- NOTE | 2023-02-11 06:38 | PC.NURSE ---
CALLED PLACE TO PHARMACY AND EXPLAINED THAT INSULIN REMOVAL FROM [facility] WILL SHOW 8 UNITS FOR 0600 [employer]OVERAGE, DESPITE ONLY NEEDING AND REMOVING 6 UNITS. NOTICED ERROR AFTER CLOSING BIN/DRAW. CORRECT DOSE DOCUMENTED OM JUL.
--- NOTE | 2023-02-11 07:54 | MHC.CM.PN ---
Spoke with Devin from [facility] protective services. He stated that a report was filed 01/22/23 1 day prior to admit. The workers compensation claims assistant had not seen the patient prior to admit. The case and dc plan ( [facility]) was reviewed. He requested a referral to [employer]. A referral has been sent. CM will continue to follow.
[2023-02-11] MEDS: Enoxaparin Sodium 40 MG/0.4 ML SYRINGE SUBCUT (08:31)
[2023-02-11] MEDS: Fluconazole 100 MG TABLET G-TUBE (08:31)
[2023-02-11] MEDS: Bacitracin Oint 14 GM TUBE 1 APPL TOPICAL ×2 (08:35→21:10)
[2023-02-11] MEDS: Nystatin Cream 15 GM TUBE 1 APPL TOPICAL ×2 (08:36→21:11)
--- NOTE | 2023-02-11 08:50 | HO.PM.IMPN ---
Subjective Subjective Date of Service: 02/11/23 Interval History: no new issues Physical Exam Vital Signs: Vital Signs: Last Vital Signs Temp 98.1 F 02/11/23 04:00 Pulse 70 02/11/23 04:00 Resp 16 02/11/23 04:00 BP 130/62 02/11/23 04:00 Pulse Ox 94 02/11/23 04:00 O2 Del Method Room Air 02/11/23 04:00 O2 Flow Rate 2 01/30/23 15:52 BMI result Body Mass Index 19.6 Objective Data Active Medications Acetaminophen (Acetaminophen 325 Mg Tablet) 650 mg PO Q6H PRN PRN Reason: Pain, Mild (Pain Scale 1-3) Last Admin: 02/08/23 03:00 Dose: 650 mg Documented By: DAVE Bacitracin (Bacitracin Oint 14 Gm Tube) 1 appl TOPICAL BID [facility]; Protocol Last Admin: 02/11/23 08:35 Dose: 1 appl Documented By: PAULA Dextrose (Dextrose 50 % 25 Gm/50 Ml Syringe) 25 gm IVPUSH Q15M PRN; Protocol PRN Reason: per Hypoglycemia Standing Ord. Enoxaparin Sodium (Enoxaparin Sodium 40 Mg/0.4 Ml Syringe) 40 mg SUBCUT Q24H [facility] Last Admin: 02/11/23 08:31 Dose: 40 mg Documented By: PAULA Fluconazole (Fluconazole 100 Mg Tablet) 100 mg G-TUBE DAILY [facility] Last Admin: 02/11/23 08:31 Dose: 100 mg Documented By: PAULA Glucose (Glucose Gel 15 Gm Gel..Gram.) 15 gm PO Q15M PRN; Protocol PRN Reason: per Hypoglycemia Standing Ord. Last Admin: 02/08/23 11:18 Dose: 15 gm Documented By: BEBE Insulin Human Lispro (Insulin Lispro 100 Unit/Ml 3 Ml Vial) 0 unit SUBCUT Q6H [facility]; Protocol Last Admin: 02/11/23 06:02 Dose: 6 unit Documented By: IVONE Comments: POC 208 Levothyroxine Sodium (Levothyroxine Sodium 25 Mcg Tablet) 25 mcg G-TUBE DAILY@0600 [facility] Last Admin: 02/11/23 05:16 Dose: 25 mcg Documented By: IVONE Nystatin (Nystatin Cream 15 Gm Tube) 1 appl TOPICAL BID [facility]; Protocol Last Admin: 02/11/23 08:36 Dose: 1 appl Documented By: PAULA Ondansetron HCl (Ondansetron Hcl 4 Mg/2 Ml Vial) 4 mg IVPUSH Q8H PRN PRN Reason: Nausea and Vomiting Sodium Chloride (0.9 % Sodium Chloride Flush 3 Ml Syringe) 3 ml IVFLUSH QSHIFT [facility] Last Admin: 02/11/23 08:36 Dose: 3 ml Documented By: PAULA Tamsulosin HCl (Tamsulosin Hcl 0.4 Mg Capsule) 0.8 mg PO BEDTIME [facility] Last Admin: 02/10/23 21:30 Dose: 0.8 mg Documented By: TUMASY Valproic Acid (Valproic Acid (As Sodium Salt) 250 Mg/5 Ml Solution) 125 mg G-TUBE BID [facility] Last Admin: 02/11/23 08:31 Dose: 125 mg Documented By: PAULA Labs 01/29/23 05:04 02/04/23 13:42 Labs: Laboratory Results - last 24 hr 02/10/23 02/10/23 02/10/23 11:15 16:50 22:28 POC Glucose 186 H 251 H 189 H 02/11/23 05:45 POC Glucose 208 H Assessment and Plan (1) Dementia: Status: Acute (2) Metabolic encephalopathy: Status: Acute Plan 82-year-old female found wandering outside her house brought to ER for confusion.? Agitated in route given ketamine with good effect.? Has remained somnolent but arousable throughout her ER stay.? Per staff is essentially advanced dementia as well and no helpful history could be obtained.? In the ER urine showed active sediment for which she was given empiric ceftriaxone.? She will be admitted to the general medical floor and followed there 1. Metabolic encephalopathy, persistent despite treatment for UTI. 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 Control agiation as needed. Continue Depakote and follow ammonia level 2. E coli UTI (pansensitive) -completed antibiotics 3. MAURICIO--resolved. 4.Dysphagia--PEG on 01/29, tolerating feed 5. oral thrush oral hygene on fluconazole (02/03) 6. Diabetes/hyperglycemia--insulin Full code Lovenox need for inpt: placement Time Spent With Patient Time: Total time managing care of this patient today ____ minutes. Quality Stroke Does the patient have a stroke diagnosis?: No VTE Prior VTE?: No VTE Risk Level:: Medical - moderate - high VTE Device Contraindication: N/A - Device Ordered VTE Drug Contraindication: Treatment Not Indicated
[2023-02-11 09:24] VITALS: BP 121/64; PULSE 82; RESP 20; TEMP 36.2; O2SAT 96
--- NOTE | 2023-02-11 10:00 | MHC.CLN ---
F/U NPO WITH TUBE FEEDING. TOLERATING GLUCERNA 1.0 AT MAX GOAL RATE 70 ML PER HOUR. GLUCERNA 1.0 AT MAX GOAL RATE 70 ML PER HOUR; FREE WATER FLUSH 120 ML Q 8 HOURS. PROVIDES 1680 KCALS (28.8 KCALS/KG); 70 G PROTEIN (1.2 G/KG), FREE WATER FROM FORMULA AND ARDVG=5480 ML (30.7 ML/KG). CONTINUE CURRENT TUBE FEED ORDER. MONITOR TF TOLERANCE, RESIDUALS AND LABS.
[2023-02-11 11:16] LABS: Glucose, Whole Blood 250 mg/dL (60-115)
[2023-02-11 17:00] LABS: Glucose, Whole Blood 227 mg/dL (60-115)
[2023-02-11 18:59] VITALS: BP 156/67; PULSE 80; RESP 18; TEMP 36.2; O2SAT 96
[2023-02-11] MEDS: Tamsulosin HCL 0.4 MG CAPSULE 0.8 MG PO (21:09)
[2023-02-11 23:27] LABS: Glucose, Whole Blood 230 mg/dL (60-115)
[2023-02-11 23:29] VITALS: BP 155/76; PULSE 92; RESP 18; TEMP 36.2; O2SAT 94
[2023-02-12 04:57] LABS: Glucose, Whole Blood 210 mg/dL (60-115)
[2023-02-12] MEDS: Insulin Lispro 100 UNIT/ML 3 ML VIAL SUBCUT ×4 (05:04→23:14)
[2023-02-12] MEDS: Levothyroxine Sodium 25 MCG TABLET G-TUBE (05:05)
[2023-02-12 07:30] VITALS: BP 118/58; PULSE 88; RESP 18; TEMP 36; O2SAT 93
--- NOTE | 2023-02-12 09:05 | P.PNIM_ITS ---
Subjective Subjective Date of Service: 02/12/23 Interval History: no new issues Physical Exam 2 Vital Signs: Vital Signs: Last Vital Signs Temp 96.8 F 02/12/23 07:30 Pulse 88 02/12/23 07:30 Resp 18 02/12/23 07:30 BP 118/58 L 02/12/23 07:30 Pulse Ox 93 02/12/23 07:30 O2 Del Method Room Air 02/12/23 07:30 O2 Flow Rate 2 01/30/23 15:52 BMI result Body Mass Index 19.6 Const: Other: General: alert, not oriented Resp: CTA bilateral CVS: S1,S2,RRR GI: +BS, NT, no distention Skin: No rash Neuro: motor grossly intact Psych: appropriate affect Objective Data Active Medications Acetaminophen (Acetaminophen 325 Mg Tablet) 650 mg PO Q6H PRN PRN Reason: Pain, Mild (Pain Scale 1-3) Last Admin: 02/08/23 03:00 Dose: 650 mg Documented By: DAVE Bacitracin (Bacitracin Oint 14 Gm Tube) 1 appl TOPICAL BID [facility]; Protocol Last Admin: 02/11/23 21:10 Dose: 1 appl Documented By: KAELYN Dextrose (Dextrose 50 % 25 Gm/50 Ml Syringe) 25 gm IVPUSH Q15M PRN; Protocol PRN Reason: per Hypoglycemia Standing Ord. Enoxaparin Sodium (Enoxaparin Sodium 40 Mg/0.4 Ml Syringe) 40 mg SUBCUT Q24H [facility] Last Admin: 02/11/23 08:31 Dose: 40 mg Documented By: PAULA Fluconazole (Fluconazole 100 Mg Tablet) 100 mg G-TUBE DAILY [facility] Last Admin: 02/11/23 08:31 Dose: 100 mg Documented By: PAULA Glucose (Glucose Gel 15 Gm Gel..Gram.) 15 gm PO Q15M PRN; Protocol PRN Reason: per Hypoglycemia Standing Ord. Last Admin: 02/08/23 11:18 Dose: 15 gm Documented By: BEBE Insulin Human Lispro (Insulin Lispro 100 Unit/Ml 3 Ml Vial) 0 unit SUBCUT Q6H [facility]; Protocol Last Admin: 02/12/23 05:04 Dose: 6 unit Documented By: KAELYN Levothyroxine Sodium (Levothyroxine Sodium 25 Mcg Tablet) 25 mcg G-TUBE DAILY@0600 [facility] Last Admin: 02/12/23 05:05 Dose: 25 mcg Documented By: KAELYN Nystatin (Nystatin Cream 15 Gm Tube) 1 appl TOPICAL BID [facility]; Protocol Last Admin: 02/11/23 21:11 Dose: 1 appl Documented By: KAELYN Ondansetron HCl (Ondansetron Hcl 4 Mg/2 Ml Vial) 4 mg IVPUSH Q8H PRN PRN Reason: Nausea and Vomiting Sodium Chloride (0.9 % Sodium Chloride Flush 3 Ml Syringe) 3 ml IVFLUSH QSHIFT [facility] Last Admin: 02/11/23 21:11 Dose: 3 ml Documented By: KAELYN Tamsulosin HCl (Tamsulosin Hcl 0.4 Mg Capsule) 0.8 mg PO BEDTIME [facility] Last Admin: 02/11/23 21:09 Dose: 0.8 mg Documented By: KAELYN Valproic Acid (Valproic Acid (As Sodium Salt) 250 Mg/5 Ml Solution) 125 mg G- TUBE BID [facility] Last Admin: 02/11/23 21:10 Dose: 125 mg Documented By: KAELYN Labs 01/29/23 05:04 02/04/23 13:42 Labs: Laboratory Results - last 24 hr 02/11/23 02/11/23 02/11/23 11:01 16:54 23:17 POC Glucose 250 H 227 H 230 H 02/12/23 04:40 POC Glucose 210 H Assessment and Plan (1) Dementia: Status: Acute (2) Metabolic encephalopathy: Status: Acute Plan 82-year-old female found wandering outside her house brought to ER for confusion.? Agitated in route given ketamine with good effect.? Has remained somnolent but arousable throughout her ER stay.? Per staff is essentially advanced dementia as well and no helpful history could be obtained.? In the ER urine showed active sediment for which she was given empiric ceftriaxone.? She will be admitted to the general medical floor and followed there 1. Metabolic encephalopathy, persistent despite treatment for UTI. 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 Control agiation as needed. Continue Depakote and follow ammonia level 2. E coli UTI (pansensitive) -completed antibiotics 3. MAURICIO--resolved. 4.Dysphagia--PEG on 8/31, tolerating feed 5. oral thrush oral hygene on fluconazole (02/03) 6. Diabetes/hyperglycemia--insulin Full code Lovenox need for inpt: placement Time Spent With Patient Time: Total time managing care of this patient today ____ minutes. Quality Stroke Does the patient have a stroke diagnosis?: No VTE Prior VTE?: No VTE Risk Level:: Medical - moderate - high VTE Device Contraindication: N/A - Device Ordered VTE Drug Contraindication: Treatment Not Indicated
[2023-02-12] MEDS: Fluconazole 100 MG TABLET G-TUBE (09:28)
[2023-02-12] MEDS: Enoxaparin Sodium 40 MG/0.4 ML SYRINGE SUBCUT (09:28)
[2023-02-12] MEDS: Bacitracin Oint 14 GM TUBE 1 APPL TOPICAL ×2 (09:29→21:53)
[2023-02-12] MEDS: Nystatin Cream 15 GM TUBE 1 APPL TOPICAL ×2 (09:29→21:53)
[2023-02-12] MEDS: 0.9 % Sodium Chloride Flush 3 ML SYRINGE IVFLUSH ×3 (09:30→21:53)
[2023-02-12 11:09] LABS: Glucose, Whole Blood 227 mg/dL (60-115)
[2023-02-12 15:51] VITALS: BP 137/63; PULSE 84; RESP 18; TEMP 36.2; O2SAT 96
[2023-02-12 17:03] LABS: Glucose, Whole Blood 191 mg/dL (60-115)
[2023-02-12 20:00] VITALS: BP 149/67; PULSE 88; RESP 20; TEMP 36.4; O2SAT 94
[2023-02-12] MEDS: Tamsulosin HCL 0.4 MG CAPSULE 0.8 MG PO (21:52)
[2023-02-12 22:34] LABS: Glucose, Whole Blood 227 mg/dL (60-115)
[2023-02-12] MEDS: Acetaminophen 325 MG TABLET 650 MG PO (23:22)
[2023-02-13 04:00] VITALS: BP 143/87; PULSE 86; RESP 18; TEMP 36.1; O2SAT 95
[2023-02-13 05:10] LABS: Glucose, Whole Blood 272 mg/dL (60-115)
[2023-02-13] MEDS: Insulin Lispro 100 UNIT/ML 3 ML VIAL SUBCUT ×4 (05:24→23:14)
[2023-02-13] MEDS: Levothyroxine Sodium 25 MCG TABLET G-TUBE (05:24)
[2023-02-13 07:27] VITALS: BP 107/57; PULSE 69; RESP 15; TEMP 36.8; O2SAT 95
--- NOTE | 2023-02-13 07:49 | HO.PM.IMPN ---
Subjective Subjective Date of Service: 02/13/23 Interval History: no new issues, remain very confused and agitated frequently Physical Exam Vital Signs: Vital Signs: Last Vital Signs Temp 98.2 F 02/13/23 07:27 Pulse 69 02/13/23 07:27 Resp 15 02/13/23 07:27 BP 107/57 L 02/13/23 07:27 Pulse Ox 95 02/13/23 07:27 O2 Del Method Room Air 02/13/23 07:27 O2 Flow Rate 2 01/30/23 15:52 BMI result Body Mass Index 19.6 Const: Other: General: very confused, agated Resp: CTA bilateral CVS: S1,S2,RRR GI: +BS, NT, no distention Skin: No rash Neuro: motor grossly intact Psych: appropriate affect Objective Data Active Medications Acetaminophen (Acetaminophen 325 Mg Tablet) 650 mg PO Q6H PRN PRN Reason: Pain, Mild (Pain Scale 1-3) Last Admin: 02/12/23 23:22 Dose: 650 mg Documented By: KAELYN Bacitracin (Bacitracin Oint 14 Gm Tube) 1 appl TOPICAL BID [facility]; Protocol Last Admin: 02/12/23 21:53 Dose: 1 appl Documented By: KAELYN Dextrose (Dextrose 50 % 25 Gm/50 Ml Syringe) 25 gm IVPUSH Q15M PRN; Protocol PRN Reason: per Hypoglycemia Standing Ord. Enoxaparin Sodium (Enoxaparin Sodium 40 Mg/0.4 Ml Syringe) 40 mg SUBCUT Q24H [facility] Last Admin: 02/12/23 09:28 Dose: 40 mg Documented By: LISA Fluconazole (Fluconazole 100 Mg Tablet) 100 mg G-TUBE DAILY [facility] Last Admin: 02/12/23 09:28 Dose: 100 mg Documented By: LISA Glucose (Glucose Gel 15 Gm Gel..Gram.) 15 gm PO Q15M PRN; Protocol PRN Reason: per Hypoglycemia Standing Ord. Last Admin: 02/08/23 11:18 Dose: 15 gm Documented By: BEBE Insulin Human Lispro (Insulin Lispro 100 Unit/Ml 3 Ml Vial) 0 unit SUBCUT Q6H [facility]; Protocol Last Admin: 02/13/23 05:24 Dose: 8 unit Documented By: KAELYN Levothyroxine Sodium (Levothyroxine Sodium 25 Mcg Tablet) 25 mcg G-TUBE DAILY@0600 [facility] Last Admin: 02/13/23 05:24 Dose: 25 mcg Documented By: KAELYN Nystatin (Nystatin Cream 15 Gm Tube) 1 appl TOPICAL BID [facility]; Protocol Last Admin: 02/12/23 21:53 Dose: 1 appl Documented By: KAELYN Ondansetron HCl (Ondansetron Hcl 4 Mg/2 Ml Vial) 4 mg IVPUSH Q8H PRN PRN Reason: Nausea and Vomiting Sodium Chloride (0.9 % Sodium Chloride Flush 3 Ml Syringe) 3 ml IVFLUSH QSHIFT [facility] Last Admin: 02/12/23 21:53 Dose: 3 ml Documented By: KAELYN Tamsulosin HCl (Tamsulosin Hcl 0.4 Mg Capsule) 0.8 mg PO BEDTIME [facility] Last Admin: 02/12/23 21:52 Dose: 0.8 mg Documented By: KAELYN Valproic Acid (Valproic Acid (As Sodium Salt) 250 Mg/5 Ml Solution) 125 mg G-TUBE BID [facility] Last Admin: 02/12/23 21:52 Dose: 125 mg Documented By: KAELYN Labs 01/29/23 05:04 02/04/23 13:42 Labs: Laboratory Results - last 24 hr 02/12/23 02/12/23 02/12/23 11:03 16:56 22:31 POC Glucose 227 H 191 H 227 H 02/13/23 04:55 POC Glucose 272 H Assessment and Plan (1) Dementia: Status: Acute (2) Metabolic encephalopathy: Status: Acute Plan 82-year-old female found wandering outside her house brought to ER for confusion.? Agitated in route given ketamine with good effect.? Has remained somnolent but arousable throughout her ER stay.? Per staff is essentially advanced dementia as well and no helpful history could be obtained.? In the ER urine showed active sediment for which she was given empiric ceftriaxone.? She will be admitted to the general medical floor and followed there 1. Metabolic encephalopathy, persistent despite treatment for UTI. 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 Control agiation as needed. Continue Depakote and follow ammonia level 2. E coli UTI (pansensitive) -completed antibiotics 3. MAURICIO--resolved. 4.Dysphagia--PEG on 01/29, tolerating feed 5. oral thrush oral hygene on fluconazole (02/03) 6. Diabetes/hyperglycemia--insulin Full code Lovenox need for inpt: placement code status to be revisited as patient not making any progress and hospice and comfort care seem more apropriate Time Spent With Patient Time: Total time managing care of this patient today ____ minutes. Quality Stroke Does the patient have a stroke diagnosis?: No VTE Prior VTE?: No VTE Risk Level:: Medical - moderate - high VTE Device Contraindication: N/A - Device Ordered VTE Drug Contraindication: Treatment Not Indicated
[2023-02-13] MEDS: Fluconazole 100 MG TABLET G-TUBE (09:05)
[2023-02-13] MEDS: Enoxaparin Sodium 40 MG/0.4 ML SYRINGE SUBCUT (09:05)
[2023-02-13] MEDS: Nystatin Cream 15 GM TUBE 1 APPL TOPICAL ×2 (09:06→20:07)
[2023-02-13] MEDS: 0.9 % Sodium Chloride Flush 3 ML SYRINGE IVFLUSH ×3 (09:06→20:08)
[2023-02-13] MEDS: Bacitracin Oint 14 GM TUBE 1 APPL TOPICAL ×2 (09:06→20:07)
--- NOTE | 2023-02-13 09:10 | MHC.CM.PN ---
Addendum entered by Annette English 02/13/23 14:20: [facility] CM CALLED PTS PARTNER, TONI [phone] HE REPORTS HE WOULD LIKE TO LOOK AT THE SNFS FIRST HE WAS INFORMED THE BEDS WOULD NOT LIKELY BE HELD THROUGH THE WEEKEND HE AGREES TO GO SEE THE SNFS THIS AFTERNOON AND PROVIDE A DECISION TO CM TOMORROW PLAN IS FOR PT TO DC TO ONE OF THESE SNFS TOMORROW BY 1600 HOURS THE LIAISON FROM [facility] WILL ALSO REACH OUT TO TONI AND TRY TO ASSIST HIM IN MAKING A DECISION Original Note: PT AWAITING [facility] SN[facility] REFERRAL BROADCASTED, NO FACILITIES WILLING TO FOLLOW CM EXPANDED REFERRAL TO [address], IN-STATE, MEDICAID CONTRACTED, FACILITIES WITH LOCKED UNITS
--- NOTE | 2023-02-13 09:18 | MHC.CLN ---
F/U NPO WITH TUBE FEEDING. TOLERATING GLUCERNA 1.0 AT MAX GOAL RATE 70 ML PER HOUR. GLUCERNA 1.0 AT MAX GOAL RATE 70 ML PER HOUR; FREE WATER FLUSH 120 ML Q 8 HOURS. PROVIDES 1680 KCALS (28.8 KCALS/KG); 70 G PROTEIN (1.2 G/KG), FREE WATER FROM FORMULA AND [id number] ML (30.7 ML/KG). MOST RECENT POC GLUCOSE CONTINUES HIGH WITH RANGE OF 191-272. GLUCERNA FORMULA APPROPRIATE. CONTINUE CURRENT TUBE FEED ORDER. MONITOR TF TOLERANCE, RESIDUALS AND LABS.
[2023-02-13 10:54] LABS: Glucose, Whole Blood 208 mg/dL (60-115)
[2023-02-13 16:52] LABS: Glucose, Whole Blood 242 mg/dL (60-115)
[2023-02-13 20:00] VITALS: TEMP 36.1
[2023-02-13] MEDS: Tamsulosin HCL 0.4 MG CAPSULE 0.8 MG PO (21:14)
[2023-02-13 21:15] LABS: Glucose, Whole Blood 150 mg/dL (60-115)
[2023-02-13 23:13] LABS: Glucose, Whole Blood 210 mg/dL (60-115)
[2023-02-13 23:21] VITALS: BP 161/77; PULSE 95; RESP 18; TEMP 36.4; O2SAT 96
[2023-02-14 04:00] VITALS: BP 110/55; PULSE 89; RESP 18; TEMP 36.6; O2SAT 97
[2023-02-14 04:51] LABS: Glucose, Whole Blood 209 mg/dL (60-115)
[2023-02-14] MEDS: Insulin Lispro 100 UNIT/ML 3 ML VIAL SUBCUT ×4 (04:55→23:01)
[2023-02-14] MEDS: Levothyroxine Sodium 25 MCG TABLET G-TUBE (04:59)
[2023-02-14 07:06] VITALS: BP 139/63; PULSE 69; RESP 17; TEMP 36.1; O2SAT 94
--- NOTE | 2023-02-14 08:30 | HO.PM.IMPN ---
Subjective Subjective Date of Service: 02/14/23 Interval History: no new issues, remain very confused with intermittent agitation Physical Exam Vital Signs: Vital Signs: Last Vital Signs Temp 96.9 F 02/14/23 07:06 Pulse 69 02/14/23 07:06 Resp 17 02/14/23 07:06 BP 139/63 02/14/23 07:06 Pulse Ox 94 02/14/23 07:06 O2 Del Method Room Air 02/14/23 07:06 O2 Flow Rate 2 01/30/23 15:52 BMI result Body Mass Index 19.6 Const: Other: General: very confused, agated Resp: CTA bilateral CVS: S1,S2,RRR GI: +BS, NT, no distention Skin: No rash Neuro: motor grossly intact Psych: appropriate affect Objective Data Active Medications Acetaminophen (Acetaminophen 325 Mg Tablet) 650 mg PO Q6H PRN PRN Reason: Pain, Mild (Pain Scale 1-3) Last Admin: 02/12/23 23:22 Dose: 650 mg Documented By: KAELYN Bacitracin (Bacitracin Oint 14 Gm Tube) 1 appl TOPICAL BID [facility]; Protocol Last Admin: 02/13/23 20:07 Dose: 1 appl Documented By: TANSIHA Dextrose (Dextrose 50 % 25 Gm/50 Ml Syringe) 25 gm IVPUSH Q15M PRN; Protocol PRN Reason: per Hypoglycemia Standing Ord. Enoxaparin Sodium (Enoxaparin Sodium 40 Mg/0.4 Ml Syringe) 40 mg SUBCUT Q24H [facility] Last Admin: 02/13/23 09:05 Dose: 40 mg Documented By: PARTH Fluconazole (Fluconazole 100 Mg Tablet) 100 mg G-TUBE DAILY [facility] Last Admin: 02/13/23 09:05 Dose: 100 mg Documented By: PARTH Glucose (Glucose Gel 15 Gm Gel..Gram.) 15 gm PO Q15M PRN; Protocol PRN Reason: per Hypoglycemia Standing Ord. Last Admin: 02/08/23 11:18 Dose: 15 gm Documented By: BEBE Insulin Human Lispro (Insulin Lispro 100 Unit/Ml 3 Ml Vial) 0 unit SUBCUT Q6H [facility]; Protocol Last Admin: 02/14/23 04:55 Dose: 6 unit Documented By: TANISHA Levothyroxine Sodium (Levothyroxine Sodium 25 Mcg Tablet) 25 mcg G-TUBE DAILY@0600 [facility] Last Admin: 02/14/23 04:59 Dose: 25 mcg Documented By: TANISHA Nystatin (Nystatin Cream 15 Gm Tube) 1 appl TOPICAL BID [facility]; Protocol Last Admin: 02/13/23 20:07 Dose: 1 appl Documented By: TANISHA Ondansetron HCl (Ondansetron Hcl 4 Mg/2 Ml Vial) 4 mg IVPUSH Q8H PRN PRN Reason: Nausea and Vomiting Sodium Chloride (0.9 % Sodium Chloride Flush 3 Ml Syringe) 3 ml IVFLUSH QSHIFT [facility] Last Admin: 02/13/23 20:08 Dose: 3 ml Documented By: TANISHA Tamsulosin HCl (Tamsulosin Hcl 0.4 Mg Capsule) 0.8 mg PO BEDTIME [facility] Last Admin: 02/13/23 21:14 Dose: 0.8 mg Documented By: TANISHA Valproic Acid (Valproic Acid (As Sodium Salt) 250 Mg/5 Ml Solution) 125 mg G-TUBE BID [facility] Last Admin: 02/13/23 21:14 Dose: 125 mg Documented By: TANISHA Labs 01/29/23 05:04 02/04/23 13:42 Labs: Laboratory Results - last 24 hr 02/13/23 02/13/23 02/13/23 10:48 16:47 21:05 POC Glucose 208 H 242 H 150 H 02/13/23 02/14/23 23:04 04:47 POC Glucose 210 H 209 H Assessment and Plan (1) Dementia: Status: Acute (2) Metabolic encephalopathy: Status: Acute Plan 82-year-old female found wandering outside her house brought to ER for confusion.? Agitated in route given ketamine with good effect.? Has remained somnolent but arousable throughout her ER stay.? Per staff is essentially advanced dementia as well and no helpful history could be obtained.? In the ER urine showed active sediment for which she was given empiric ceftriaxone.? She will be admitted to the general medical floor and followed there 1. Metabolic encephalopathy, persistent despite treatment for UTI. 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 Control agiation as needed. Continue Depakote and follow ammonia level 2. E coli UTI (pansensitive) -completed antibiotics 3. MAURICIO--resolved. 4.Dysphagia--PEG on 01/29, tolerating feed 5. oral thrush oral hygene on fluconazole (02/03) 6. Diabetes/hyperglycemia--insulin Full code Lovenox need for inpt: placement, can revisit code status with if he' open to it Time Spent With Patient Time: Total time managing care of this patient today ____ minutes. Quality Stroke Does the patient have a stroke diagnosis?: No VTE Prior VTE?: No VTE Risk Level:: Medical - moderate - high VTE Device Contraindication: N/A - Device Ordered VTE Drug Contraindication: Treatment Not Indicated
[2023-02-14] MEDS: Nystatin Cream 15 GM TUBE 1 APPL TOPICAL ×2 (09:40→22:47)
[2023-02-14] MEDS: Bacitracin Oint 14 GM TUBE 1 APPL TOPICAL ×2 (09:40→22:47)
[2023-02-14] MEDS: Enoxaparin Sodium 40 MG/0.4 ML SYRINGE SUBCUT (09:41)
[2023-02-14] MEDS: 0.9 % Sodium Chloride Flush 3 ML SYRINGE IVFLUSH ×3 (09:42→20:24)
[2023-02-14] MEDS: Fluconazole 100 MG TABLET G-TUBE (09:42)
[2023-02-14 11:29] LABS: Glucose, Whole Blood 251 mg/dL (60-115)
--- NOTE | 2023-02-14 13:11 | MHC.CM.PN ---
Addendum entered by Annette English 02/16/23 13:16: [facility] IS STILL OFFERING PT A BED CM CALLED PTS HCP/PARTNER, DARLING [phone] AND INFORM HIM OF THE ABOVE HE REPORTS HE IS HOPING TO WIN THE SECOND APPEAL CM INFORMED HIM IF HE DOES NOT WIN, MEDICARE WILL NOT COVER THE BILL STARTING FROM 1200 HOURS TODAY CM ALSO REMINDED HIM, IF THEY LOSE THE APPEAL, PT WILL HAVE TO BE DISCHARGED TO THE SNF OFFERING A BED HE DID ASK IF THERE WAS ANY CHANCE PT COULD BE TRANSFERRED TO A CLOSER FACILITY IF A BED WAS FOUND CM INFORMED HIM IF THERE WAS A BED, AND THE FACILITY ACCEPTED, THE PT COULD BE TRANSFERRED HE ALSO REPORTS HE IS WORRIED BECAUSE AT THE HOSPITAL, THE PT IS GETTING HER SUGARS AND VS CHECKED EVERY DAY CM INFORMED HIM THIS WOULD ALSO HAPPEN IN A SNF HE ASKED ABOUT MD PRESENCE IN A SNF CM INFORMED HIM ALL SNFS HAVE AN MD AND THEY ARE CALLED NEEDED DARLING REPORTS HE IS GOING TO GO TO THE [facility] TODAY Addendum entered by Annette English 02/16/23 10:49: CM INFORMED SNF NO LONGER OFFERING A BED REFERRALS WERE UPDATED Addendum entered by Annette English 02/16/23 08:55: 02/15/23 CM INFORMED [facility] THE DECISION TO DC, HOWEVER PTS PARTNER SENT IT FOR A SECOND ROUND APPEAL Addendum entered by Annette English 02/14/23 14:48: APPEAL PROCESS WAS INITIATED PTS RECORDS WERE UPLOADED TO THE [facility] PTS CASE [facility] CASE NUMBER IS [id number] Original Note: CM RECEIVED A CALL FROM PTS PARTNER/HCP TONI HE REPORTS HE WENT TO THE [facility] AND DOES NOT WANT THE PT GOING THERE HE REPORTS IT IS TOO FAR AND TOO CROWDED AND TOO LOUD [place]OR[place] EXPLAINED AGAIN THAT THERE WERE NO CLOSER FACILITIES OFFERING CM REMINDED HIM OF HIS RIGHT TO APPEAL AND EXPLAINED HE WOULD NEED TO DO SO THE PT DOES NOT REQUIRE AN ACUTE LOC AT THIS TIME TONI REPORTS HE DOES HAVE THE IMM THERE AND WOULD CALL THIS MORNING
[2023-02-14 15:16] VITALS: BP 142/95; PULSE 87; RESP 18; TEMP 36.1; O2SAT 98
[2023-02-14 17:07] LABS: Glucose, Whole Blood 202 mg/dL (60-115)
[2023-02-14 20:00] VITALS: BP 122/62; PULSE 92; RESP 20; TEMP 36.4; O2SAT 97
[2023-02-14] MEDS: Tamsulosin HCL 0.4 MG CAPSULE 0.8 MG PO (20:23)
[2023-02-14 23:02] LABS: Glucose, Whole Blood 186 mg/dL (60-115)
[2023-02-15 04:00] VITALS: BP 159/95; PULSE 97; RESP 18; TEMP 36.2; O2SAT 98
[2023-02-15 04:41] LABS: Glucose, Whole Blood 242 mg/dL (60-115)
[2023-02-15] MEDS: Insulin Lispro 100 UNIT/ML 3 ML VIAL SUBCUT ×4 (04:50→22:19)
[2023-02-15] MEDS: Levothyroxine Sodium 25 MCG TABLET G-TUBE (05:21)
[2023-02-15 07:09] VITALS: BP 158/69; PULSE 88; RESP 16; TEMP 36.7; O2SAT 93
[2023-02-15] MEDS: Enoxaparin Sodium 40 MG/0.4 ML SYRINGE SUBCUT (07:36)
[2023-02-15] MEDS: Acetaminophen 325 MG TABLET 650 MG PO (07:36)
[2023-02-15] MEDS: 0.9 % Sodium Chloride Flush 3 ML SYRINGE IVFLUSH (07:37)
[2023-02-15] MEDS: Bacitracin Oint 14 GM TUBE 1 APPL TOPICAL ×2 (07:40→19:39)
[2023-02-15] MEDS: Nystatin Cream 15 GM TUBE 1 APPL TOPICAL ×2 (07:40→19:29)
--- NOTE | 2023-02-15 08:34 | HO.PM.IMPN ---
Subjective Subjective Date of Service: 02/15/23 Interval History: no new issues, remain very confused, intermittent agitation, has constant observer. apealed discharge yesterday Review of Systems awake, intermitetnt agitated,unable to obtain further info. Physical Exam Vital Signs: Vital Signs: Last Vital Signs Temp 98.0 F 02/15/23 07:09 Pulse 88 02/15/23 07:09 Resp 16 02/15/23 07:09 BP 158/69 H 02/15/23 07:09 Pulse Ox 93 02/15/23 07:09 O2 Del Method Room Air 02/15/23 07:09 O2 Flow Rate 2 01/30/23 15:52 BMI result Body Mass Index 19.6 Const: Other: General: very confused, agated Resp: CTA bilateral CVS: S1,S2,RRR GI: +BS, NT, no distention Skin: No rash Neuro: motor grossly intact Psych: appropriate affect Objective Data Active Medications Acetaminophen (Acetaminophen 325 Mg Tablet) 650 mg PO Q6H PRN PRN Reason: Pain, Mild (Pain Scale 1-3) Last Admin: 02/15/23 07:36 Dose: 650 mg Documented By: ALON Bacitracin (Bacitracin Oint 14 Gm Tube) 1 appl TOPICAL BID [facility]; Protocol Last Admin: 02/15/23 07:40 Dose: 1 appl Documented By: ALON Dextrose (Dextrose 50 % 25 Gm/50 Ml Syringe) 25 gm IVPUSH Q15M PRN; Protocol PRN Reason: per Hypoglycemia Standing Ord. Enoxaparin Sodium (Enoxaparin Sodium 40 Mg/0.4 Ml Syringe) 40 mg SUBCUT Q24H [facility] Last Admin: 02/15/23 07:36 Dose: 40 mg Documented By: ALON Glucose (Glucose Gel 15 Gm Gel..Gram.) 15 gm PO Q15M PRN; Protocol PRN Reason: per Hypoglycemia Standing Ord. Last Admin: 02/08/23 11:18 Dose: 15 gm Documented By: BEBE Insulin Human Lispro (Insulin Lispro 100 Unit/Ml 3 Ml Vial) 0 unit SUBCUT Q6H [facility]; Protocol Last Admin: 02/15/23 04:50 Dose: 6 unit Documented By: TANISHA Levothyroxine Sodium (Levothyroxine Sodium 25 Mcg Tablet) 25 mcg G-TUBE DAILY@0600 [facility] Last Admin: 02/15/23 05:21 Dose: 25 mcg Documented By: TANISHA Nystatin (Nystatin Cream 15 Gm Tube) 1 appl TOPICAL BID [facility]; Protocol Last Admin: 02/15/23 07:40 Dose: 1 appl Documented By: ALON Ondansetron HCl (Ondansetron Hcl 4 Mg/2 Ml Vial) 4 mg IVPUSH Q8H PRN PRN Reason: Nausea and Vomiting Sodium Chloride (0.9 % Sodium Chloride Flush 3 Ml Syringe) 3 ml IVFLUSH QSHIFT [facility] Last Admin: 02/15/23 07:37 Dose: 3 ml Documented By: ALON Tamsulosin HCl (Tamsulosin Hcl 0.4 Mg Capsule) 0.8 mg PO BEDTIME [facility] Last Admin: 02/14/23 20:23 Dose: 0.8 mg Documented By: TANISHA Valproic Acid (Valproic Acid (As Sodium Salt) 250 Mg/5 Ml Solution) 125 mg G-TUBE BID [facility] Last Admin: 02/15/23 07:36 Dose: 125 mg Documented By: ALON Labs 01/29/23 05:04 02/04/23 13:42 Labs: Laboratory Results - last 24 hr 02/14/23 02/14/23 02/14/23 11:20 17:02 22:58 POC Glucose 251 H 202 H 186 H 02/15/23 04:33 POC Glucose 242 H Assessment and Plan (1) Dementia: Status: Acute (2) Metabolic encephalopathy: Status: Acute Plan 82-year-old female found wandering outside her house brought to ER for confusion.? Agitated in route given ketamine with good effect.? Has remained somnolent but arousable throughout her ER stay.? Per staff is essentially advanced dementia as well and no helpful history could be obtained.? In the ER urine showed active sediment for which she was given empiric ceftriaxone.? She will be admitted to the general medical floor and followed there 1. Metabolic encephalopathy, persistent despite treatment for UTI. 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 Control agiation as needed. Continue Depakote and follow ammonia level 2. E coli UTI (pansensitive) -completed antibiotics 3. MAURICIO--resolved. 4.Dysphagia--PEG on 01/29, tolerating feed 5. oral thrush oral hygiene on fluconazole (02/03) 6. Diabetes/hyperglycemia--insulin Full code Lovenox need for inpt: placement, not open to changing code status, discharge apealed by 02/14 Time Spent With Patient Time: Total time managing care of this patient today ____ minutes. Quality Stroke Does the patient have a stroke diagnosis?: No VTE Prior VTE?: No VTE Risk Level:: Medical - moderate - high VTE Device Contraindication: N/A - Device Ordered VTE Drug Contraindication: Treatment Not Indicated
[2023-02-15 11:07] LABS: Glucose, Whole Blood 230 mg/dL (60-115)
[2023-02-15 15:07] VITALS: BP 139/76; PULSE 88; RESP 20; TEMP 36.4; O2SAT 96
[2023-02-15 16:45] LABS: Glucose, Whole Blood 228 mg/dL (60-115)
[2023-02-15 17:18] VITALS: BP 139/76; PULSE 88; RESP 20; TEMP 36.4; O2SAT 96
[2023-02-15 19:26] VITALS: BP 142/93; PULSE 100; RESP 18; TEMP 36.6; O2SAT 98
[2023-02-15] MEDS: Tamsulosin HCL 0.4 MG CAPSULE 0.8 MG PO (19:29)
[2023-02-15 22:14] LABS: Glucose, Whole Blood 192 mg/dL (60-115)
[2023-02-16] MEDS: 0.9 % Sodium Chloride Flush 3 ML SYRINGE IVFLUSH ×3 (00:27→16:10)
[2023-02-16 04:00] VITALS: BP 150/74; PULSE 88; RESP 16; TEMP 36.4; O2SAT 98
[2023-02-16 05:19] LABS: Glucose, Whole Blood 251 mg/dL (60-115)
[2023-02-16] MEDS: Levothyroxine Sodium 25 MCG TABLET G-TUBE (05:33)
[2023-02-16] MEDS: Insulin Lispro 100 UNIT/ML 3 ML VIAL SUBCUT ×4 (05:34→23:00)
[2023-02-16 08:00] VITALS: BP 103/63; PULSE 82; RESP 18; TEMP 36.6; O2SAT 95
[2023-02-16] MEDS: Enoxaparin Sodium 40 MG/0.4 ML SYRINGE SUBCUT (08:32)
[2023-02-16] MEDS: Acetaminophen 325 MG TABLET 650 MG PO (08:33)
[2023-02-16] MEDS: Nystatin Cream 15 GM TUBE 1 APPL TOPICAL ×2 (09:19→21:28)
--- NOTE | 2023-02-16 10:55 | HO.PM.IMPN ---
Subjective Subjective Date of Service: 02/16/23 Interval History: no new issues, remain very confused, intermittent agitation, has constant observer. apealed discharge yesterday Physical Exam Vital Signs: Vital Signs: Last Vital Signs Temp 97.8 F 02/16/23 08:00 Pulse 82 02/16/23 08:00 Resp 18 02/16/23 08:00 BP 103/63 02/16/23 08:00 Pulse Ox 95 02/16/23 08:00 O2 Del Method Room Air 02/16/23 08:00 O2 Flow Rate 2 01/30/23 15:52 BMI result Body Mass Index 19.6 Const: Other: General: very confused, agated Resp: CTA bilateral CVS: S1,S2,RRR GI: +BS, NT, no distention Skin: No rash Neuro: motor grossly intact Psych: appropriate affect Objective Data Active Medications Acetaminophen (Acetaminophen 325 Mg Tablet) 650 mg PO Q6H PRN PRN Reason: Pain, Mild (Pain Scale 1-3) Last Admin: 02/16/23 08:33 Dose: 650 mg Documented By: BEBE Bacitracin (Bacitracin Oint 14 Gm Tube) 1 appl TOPICAL BID [facility]; Protocol Last Admin: 02/16/23 09:20 Dose: Not Given Documented By: BEBE Non-Admin Reason: / Dextrose (Dextrose 50 % 25 Gm/50 Ml Syringe) 25 gm IVPUSH Q15M PRN; Protocol PRN Reason: per Hypoglycemia Standing Ord. Enoxaparin Sodium (Enoxaparin Sodium 40 Mg/0.4 Ml Syringe) 40 mg SUBCUT Q24H [facility] Last Admin: 02/16/23 08:32 Dose: 40 mg Documented By: BEBE Glucose (Glucose Gel 15 Gm Gel..Gram.) 15 gm PO Q15M PRN; Protocol PRN Reason: per Hypoglycemia Standing Ord. Last Admin: 02/08/23 11:18 Dose: 15 gm Documented By: BEBE Insulin Human Lispro (Insulin Lispro 100 Unit/Ml 3 Ml Vial) 0 unit SUBCUT Q6H [facility]; Protocol Last Admin: 02/16/23 05:34 Dose: 8 unit Documented By: IVONE Comments: poc 251 Levothyroxine Sodium (Levothyroxine Sodium 25 Mcg Tablet) 25 mcg G-TUBE DAILY@0600 [facility] Last Admin: 02/16/23 05:33 Dose: 25 mcg Documented By: IVONE Nystatin (Nystatin Cream 15 Gm Tube) 1 appl TOPICAL BID [facility]; Protocol Last Admin: 02/16/23 09:19 Dose: 1 appl Documented By: BEBE Ondansetron HCl (Ondansetron Hcl 4 Mg/2 Ml Vial) 4 mg IVPUSH Q8H PRN PRN Reason: Nausea and Vomiting Sodium Chloride (0.9 % Sodium Chloride Flush 3 Ml Syringe) 3 ml IVFLUSH QSHIFT [facility] Last Admin: 02/16/23 08:33 Dose: 3 ml Documented By: BEBE Tamsulosin HCl (Tamsulosin Hcl 0.4 Mg Capsule) 0.8 mg PO BEDTIME [facility] Last Admin: 02/15/23 19:29 Dose: 0.8 mg Documented By: SREEQC Valproic Acid (Valproic Acid (As Sodium Salt) 250 Mg/5 Ml Solution) 125 mg G-TUBE BID [facility] Last Admin: 02/16/23 08:32 Dose: 125 mg Documented By: BEBE Labs 01/29/23 05:04 02/04/23 13:42 Labs: Laboratory Results - last 24 hr 02/15/23 02/15/23 02/15/23 11:04 16:28 22:10 POC Glucose 230 H 228 H 192 H 02/16/23 05:13 POC Glucose 251 H Assessment and Plan (1) Dementia: Status: Acute (2) Metabolic encephalopathy: Status: Acute Plan 82-year-old female found wandering outside her house brought to ER for confusion.? Agitated in route given ketamine with good effect.? Has remained somnolent but arousable throughout her ER stay.? Per staff is essentially advanced dementia as well and no helpful history could be obtained.? In the ER urine showed active sediment for which she was given empiric ceftriaxone.? She will be admitted to the general medical floor and followed there 1. Metabolic encephalopathy, initially thought to be related to uti which has been treated and she remains very confused but likely from dementia rather than encephalopathy 2. E coli UTI (pansensitive) -completed antibiotics 3. MAURICIO--resolved. 4.Dysphagia--PEG on 01/29, tolerating feed 5. oral thrush oral hygiene on fluconazole (02/03) 6. Diabetes/hyperglycemia--insulin Full code Lovenox need for inpt: needs shelter placement when bed available. Time Spent With Patient Time: Total time managing care of this patient today ____ minutes. Quality Stroke Does the patient have a stroke diagnosis?: No VTE Prior VTE?: No VTE Risk Level:: Medical - moderate - high VTE Device Contraindication: N/A - Device Ordered VTE Drug Contraindication: Treatment Not Indicated
[2023-02-16 11:50] LABS: Glucose, Whole Blood 200 mg/dL (60-115)
--- NOTE | 2023-02-16 13:31 | MHC.CLN ---
F/U NPO WITH TUBE FEEDING. TOLERATING GLUCERNA 1.0 AT MAX GOAL RATE 70 ML PER HOUR. GLUCERNA 1.0 AT MAX GOAL RATE 70 ML PER HOUR; FREE WATER FLUSH 120 ML Q 8 HOURS. PROVIDES 1680 KCALS (28.8 KCALS/KG); 70 G PROTEIN (1.2 G/KG), FREE WATER FROM FORMULA AND [id number] ML (30.7 ML/KG). MOST RECENT POC GLUCOSE CONTINUES HIGH WITH RANGE OF 192-251. GLUCERNA FORMULA APPROPRIATE. CONTINUE CURRENT TUBE FEED ORDER. MONITOR TF TOLERANCE, RESIDUALS AND LABS. IF GLUCERNA FORMULA IS NOT AVAILABLE, MAY SUBSTITUTE JEVITY 1.0 AT SAME RATE AND MONITOR BLOOD SUGARS.
[2023-02-16 15:14] VITALS: BP 108/53; PULSE 82; RESP 16; TEMP 36.8; O2SAT 95
[2023-02-16 17:08] LABS: Glucose, Whole Blood 157 mg/dL (60-115)
[2023-02-16 19:54] VITALS: BP 132/59; PULSE 76; RESP 16; TEMP 36.3; O2SAT 96
[2023-02-16] MEDS: Bacitracin Oint 14 GM TUBE 1 APPL TOPICAL (21:31)
[2023-02-16 22:54] LABS: Glucose, Whole Blood 249 mg/dL (60-115)
[2023-02-17] MEDS: 0.9 % Sodium Chloride Flush 3 ML SYRINGE IVFLUSH ×2 (01:04→08:38)
[2023-02-17 04:00] VITALS: BP 108/57; PULSE 90; RESP 16; TEMP 36.1; O2SAT 97
[2023-02-17] MEDS: Levothyroxine Sodium 25 MCG TABLET G-TUBE (05:35)
[2023-02-17 05:46] LABS: Glucose, Whole Blood 196 mg/dL (60-115)
[2023-02-17] MEDS: Insulin Lispro 100 UNIT/ML 3 ML VIAL SUBCUT ×4 (05:55→23:10)
[2023-02-17 07:51] VITALS: BP 157/67; PULSE 86; RESP 18; TEMP 36.6; O2SAT 97
[2023-02-17] MEDS: Bacitracin Oint 14 GM TUBE 1 APPL TOPICAL ×2 (08:38→20:37)
[2023-02-17] MEDS: Enoxaparin Sodium 40 MG/0.4 ML SYRINGE SUBCUT (08:38)
[2023-02-17] MEDS: Nystatin Cream 15 GM TUBE 1 APPL TOPICAL ×2 (08:38→20:30)
--- NOTE | 2023-02-17 09:48 | PC.NURSE ---
order for bladder scan. patient bladder scanned at 0845am for 606mls. patient straight cathed for 620mls. will continue to monitor.
--- NOTE | 2023-02-17 10:12 | MHC.CLN ---
F/U DUE TO SUPPLY CHAIN SHORTAGE PT'S TF WILL BE SWITCHED TO JEVITY 1.0 MONITOR TOLERANCE, RESIDUALS, BS AND LYTES
[2023-02-17 11:36] LABS: Glucose, Whole Blood 238 mg/dL (60-115)
--- NOTE | 2023-02-17 13:54 | HO.PM.IMPN ---
Subjective Subjective Date of Service: 02/17/23 Interval History: dementia Review of Systems no new issues, remain very confused, intermittent agitation, has constant observer. Physical Exam Vital Signs: Vital Signs: Last Vital Signs Temp 97.9 F 02/17/23 07:51 Pulse 86 02/17/23 07:51 Resp 18 02/17/23 07:51 BP 157/67 H 02/17/23 07:51 Pulse Ox 97 02/17/23 07:51 O2 Del Method Room Air 02/17/23 07:51 O2 Flow Rate 2 01/30/23 15:52 BMI result Body Mass Index 19.6 General: very confused, agated Resp: CTA bilateral CVS: S1,S2,RRR GI: +BS, NT, no distention Skin: No rash Neuro: motor grossly intact Psych: appropriate affect Objective Data Active Medications Acetaminophen (Acetaminophen 325 Mg Tablet) 650 mg G-TUBE Q6H PRN PRN Reason: Pain, Mild (Pain Scale 1-3) Bacitracin (Bacitracin Oint 14 Gm Tube) 1 appl TOPICAL BID [facility]; Protocol Last Admin: 02/17/23 08:38 Dose: 1 appl Documented By: SINGHEMA Dextrose (Dextrose 50 % 25 Gm/50 Ml Syringe) 25 gm IVPUSH Q15M PRN; Protocol PRN Reason: per Hypoglycemia Standing Ord. Enoxaparin Sodium (Enoxaparin Sodium 40 Mg/0.4 Ml Syringe) 40 mg SUBCUT Q24H [facility] Last Admin: 02/17/23 08:38 Dose: 40 mg Documented By: SINGHEMA Glucose (Glucose Gel 15 Gm Gel..Gram.) 15 gm PO Q15M PRN; Protocol PRN Reason: per Hypoglycemia Standing Ord. Last Admin: 02/08/23 11:18 Dose: 15 gm Documented By: BEBE Insulin Human Lispro (Insulin Lispro 100 Unit/Ml 3 Ml Vial) 0 unit SUBCUT Q6H [facility]; Protocol Last Admin: 02/17/23 12:16 Dose: 6 unit Documented By: SINGHEMA Levothyroxine Sodium (Levothyroxine Sodium 25 Mcg Tablet) 25 mcg G-TUBE DAILY@0600 [facility] Last Admin: 02/17/23 05:35 Dose: 25 mcg Documented By: IVONE Nystatin (Nystatin Cream 15 Gm Tube) 1 appl TOPICAL BID [facility]; Protocol Last Admin: 02/17/23 08:38 Dose: 1 appl Documented By: CANDIDA Ondansetron HCl (Ondansetron Hcl 4 Mg/2 Ml Vial) 4 mg IVPUSH Q8H PRN PRN Reason: Nausea and Vomiting Sodium Chloride (0.9 % Sodium Chloride Flush 3 Ml Syringe) 3 ml IVFLUSH QSHIFT [facility] Last Admin: 02/17/23 08:38 Dose: 3 ml Documented By: CANDIDA Tamsulosin HCl (Tamsulosin Hcl 0.4 Mg Capsule) 0.8 mg PO BEDTIME [facility] Last Admin: 02/16/23 21:22 Dose: Not Given Documented By: ELINOR Non-Admin Reason: unable to adm per peg tube per pharmacist Valproic Acid (Valproic Acid (As Sodium Salt) 250 Mg/5 Ml Solution) 125 mg G-TUBE BID [facility] Last Admin: 02/17/23 08:38 Dose: 125 mg Documented By: CANDIDA Labs 01/29/23 05:04 02/04/23 13:42 Labs: Laboratory Results - last 24 hr 02/16/23 02/16/23 02/17/23 17:03 22:49 05:42 POC Glucose 157 H 249 H 196 H 02/17/23 11:22 POC Glucose 238 H Assessment and Plan (1) Dementia: Status: Acute (2) Metabolic encephalopathy: Status: Acute Plan 82-year-old female found wandering outside her house brought to ER for confusion.? Agitated in route given ketamine with good effect.? Has remained somnolent but arousable throughout her ER stay.? Per staff is essentially advanced dementia as well and no helpful history could be obtained.? In the ER urine showed active sediment for which she was given empiric ceftriaxone.? She will be admitted to the general medical floor and followed there 1. Metabolic encephalopathy, initially thought to be related to uti which has been treated and she remains very confused but likely from dementia rather than encephalopathy 2. E coli UTI (pansensitive) -completed antibiotics 3. MAURICIO--resolved. 4.Dysphagia--PEG on 01/29, tolerating feed 5. oral thrush oral hygiene completed fluconazole . 6. Diabetes/hyperglycemia--insulin Full code Lovenox need for inpt: needs shelter placement when bed available. Time Spent With Patient Time: Total time managing care of this patient today ____ minutes. Quality Stroke Does the patient have a stroke diagnosis?: No VTE Prior VTE?: No VTE Risk Level:: Medical - moderate - high VTE Device Contraindication: N/A - Device Ordered VTE Drug Contraindication: Treatment Not Indicated
--- NOTE | 2023-02-17 14:15 | PC.NURSE ---
Patient IV access was outdated. Dr. walls made aware. okay for patient to have no IV access. IV access removed.
--- NOTE | 2023-02-17 14:17 | PM.UROCN ---
History of Present Illness Consult details Consult date: 02/17/23 Narrative: 82 yo female with undiagnosed cognitive impairment, admitted on 01/23/23 due to increasing disruptive behavior changes. Noted to have UTI. Evaluated by General surgery for G-tube placement. Urology called due to urinary retention. The patient has failed multiple voiding trials, not tolerating ISC by nursing staff, is combative when they are trying to catheterize pt. She is currently on flomax 0.8 mg Recommend replace carrillo. Renal US for baseline due to UTI, cont flomax Trial bethanochol 50 mg bid Review of Systems Review of Systems: 10 point ROS negative other than stated in HPI PMFSH Past Medical History Medical History Foot pain, bilateral Diabetes Surgical History Surgical History History of cardiac cath Social History Social History Household Members: Spouse Housing: House Unable to assess alcohol history related to: Unable to respond Alcohol intake: never Patient Tobacco Use Status: Former Tobacco user Smoked in Last 30 Days: No Use of substances other than those prescribed or required for medical reasons: No Currently Displaying Signs/Symptoms of Drug Intoxication Withdrawal: No Are you DNR?: No Advance Directives: Yes Advance Directives on File: Yes Advance Directives Date on File: 01/22/23 Patient : No Poor oral hygiene: Yes service: No Meds Allergies Allergy/AdvReac Type Severity Reaction Status Date / Time No Known Allergies Allergy Verified 01/24/23 00:05 Active Medications: Current Medications Acetaminophen (Acetaminophen 325 Mg Tablet) 650 mg G-TUBE Q6H PRN PRN Reason: Pain, Mild (Pain Scale 1-3) Bacitracin (Bacitracin Oint 14 Gm Tube) 1 appl TOPICAL BID [facility]; Protocol Last Admin: 02/17/23 08:38 Dose: 1 appl Dextrose (Dextrose 50 % 25 Gm/50 Ml Syringe) 25 gm IVPUSH Q15M PRN; Protocol PRN Reason: per Hypoglycemia Standing Ord. Enoxaparin Sodium (Enoxaparin Sodium 40 Mg/0.4 Ml Syringe) 40 mg SUBCUT Q24H [facility] Last Admin: 02/17/23 08:38 Dose: 40 mg Glucose (Glucose Gel 15 Gm Gel..Gram.) 15 gm PO Q15M PRN; Protocol PRN Reason: per Hypoglycemia Standing Ord. Last Admin: 02/08/23 11:18 Dose: 15 gm Insulin Human Lispro (Insulin Lispro 100 Unit/Ml 3 Ml Vial) 0 unit SUBCUT Q6H [facility]; Protocol Last Admin: 02/17/23 12:16 Dose: 6 unit Levothyroxine Sodium (Levothyroxine Sodium 25 Mcg Tablet) 25 mcg G-TUBE DAILY@0600 [facility] Last Admin: 02/17/23 05:35 Dose: 25 mcg Nystatin (Nystatin Cream 15 Gm Tube) 1 appl TOPICAL BID [facility]; Protocol Last Admin: 02/17/23 08:38 Dose: 1 appl Ondansetron HCl (Ondansetron Hcl 4 Mg/2 Ml Vial) 4 mg IVPUSH Q8H PRN PRN Reason: Nausea and Vomiting Sodium Chloride (0.9 % Sodium Chloride Flush 3 Ml Syringe) 3 ml IVFLUSH QSHIFT [facility] Last Admin: 02/17/23 08:38 Dose: 3 ml Tamsulosin HCl (Tamsulosin Hcl 0.4 Mg Capsule) 0.8 mg PO BEDTIME [facility] Last Admin: 02/16/23 21:22 Dose: Not Given Valproic Acid (Valproic Acid (As Sodium Salt) 250 Mg/5 Ml Solution) 125 mg G-TUBE BID [facility] Last Admin: 02/17/23 08:38 Dose: 125 mg Home Medications Medication Instructions Recorded Confirmed Last Taken Type aspirin 325 mg tablet,delayed 650 mg PO Q8H PRN Chest Pain 01/23/23 01/23/23 Unknown History release Physical Exam Vital Signs: Vital Signs: Last Vital Signs Temp 97.9 F 02/17/23 07:51 Pulse 86 02/17/23 07:51 Resp 18 02/17/23 07:51 BP 157/67 H 02/17/23 07:51 Pulse Ox 97 02/17/23 07:51 O2 Del Method Room Air 02/17/23 07:51 O2 Flow Rate 2 01/30/23 15:52 BMI result Body Mass Index 19.6 Const: General: no acute distress Orientation/consciousness: patient oriented x3 HEENT: Head: Yes normal to inspection, Yes normocephalic and Yes atraumatic Eyes: Conjunctivae: conjunctivae normal Neck: Neck: Yes normal visual inspection and Yes trachea midline Chest: Chest palpation & inspection: normal inspection of the chest Resp: Effort & Inspection: normal respiratory effort Cardio: Rate: regular rate GI: Inspection: Yes normal to inspection Palpation (GI): Soft to palpation Neuro: General: patient oriented x3 Psych: Appearance: grossly normal Results Labs 01/29/23 05:04 02/04/23 13:42 Labs: Abnormal lab results 02/16/23 02/16/23 02/17/23 Range/Units 17:03 22:49 05:42 POC Glucose 157 H 249 H 196 H (60-115) mg/dL 02/17/23 Range/Units 11:22 POC Glucose 238 H (60-115) mg/dL Urine 01/22/23 Range/Units 14:36 Urine Color Yellow Urine Appearance Cloudy Urine pH 6.5 (5.0-9.0) Ur Specific [place] 1.020 (1.005-1.025) Urine Protein Negative (Neg-Trace) mg/dL Urine Glucose (UA) >=1000 H (Negative) mg/dL Collected: 01/22/23-UNK Status: COMP Req#: [id number] Received: 01/22/23-1599 Source: [facility] Desc: Urine perez Subm Dr: Francie Alva DO Ordered: Urine Culture Procedure Result Verified Site Urine Culture Final 01/25/23 Organism 1 Escherichia coli Quant > 100,000 cfu/mL Organism 2 Strep agalactiae (Grp B) Quant 10,000 to 50,000 cfu/mL [facility] [place] Susceptibility not routinely performed on this isolate. E coli M.I.C. RX --------- --- Ampicillin <=2 S Ceftriaxone <=0.25 S Gentamicin <=1 S Levofloxacin <=0.12 S Nitrofurantoin <=16 S Trimethoprim/Sulfamethoxazole <=20 S Assessment and Plan (1) Dementia: Qualifiers: Dementia behavioral or psychological symptom: with agitation Dementia severity: unspecified severity Dementia type: unspecified type Qualified Code(s): F03.911 - Unspecified dementia, unspecified severity, with agitation Status: Acute (2) Urinary retention: Status: Acute (3) Generalized weakness: Status: Acute (4) Recent urinary tract infection: Status: Acute Plan Recommend replace carrillo. US retroperineal comp for baseline due to UTI, may clamp carrillo for one hour prior to imaging so bladder is distended for evaluation cont flomax Trial bethanochol 50 mg bid Time Spent With Patient Time: Total time managing care of this patient today ____ minutes. Procedures Date of Service Date of Service: 02/17/23
[2023-02-17 16:00] VITALS: BP 119/67; PULSE 92; RESP 18; TEMP 36.7; O2SAT 94
[2023-02-17 16:44] LABS: Glucose, Whole Blood 173 mg/dL (60-115)
[2023-02-17 19:49] VITALS: BP 123/58; PULSE 78; RESP 18; TEMP 36.6; O2SAT 96
[2023-02-17 23:09] LABS: Glucose, Whole Blood 243 mg/dL (60-115)
[2023-02-18 02:45] VITALS: PULSE 136; RESP 16; TEMP 36.1; O2SAT 93
[2023-02-18 05:18] LABS: Glucose, Whole Blood 245 mg/dL (60-115)
[2023-02-18] MEDS: Insulin Lispro 100 UNIT/ML 3 ML VIAL SUBCUT ×4 (05:20→23:15)
[2023-02-18] MEDS: Levothyroxine Sodium 25 MCG TABLET G-TUBE (05:20)
[2023-02-18 07:27] VITALS: PULSE 71; RESP 12; TEMP 36; O2SAT 96
[2023-02-18] MEDS: Enoxaparin Sodium 40 MG/0.4 ML SYRINGE SUBCUT (09:30)
[2023-02-18] MEDS: Nystatin Cream 15 GM TUBE 1 APPL TOPICAL ×2 (09:54→20:36)
[2023-02-18] MEDS: Bacitracin Oint 14 GM TUBE 1 APPL TOPICAL ×2 (09:55→20:36)
--- NOTE | 2023-02-18 10:26 | MHC.CLN ---
F/U CONTINUES NPO WITH NUTRITION/HYDRATION VIA PEG. TOLERATING TUBE FEEDING AT MAX GOAL RATE. JEVITY 1.0 AT MAX GOAL RATE 70ML/HR WITH 120ML FREE WATER FLUSHES Q 8 HRS. PROVIDES 1781KCALS (30KCALS/KG), 74G PROTEIN (1.3G/KG), 1763ML TOTAL WATER FROM FORMULA AND FLUSHES (30ML/KG). LABS REVIEWED. POC GLUCOSE RANGE 173-249. CONTINUE CURRENT TUBE FEED AND FLUSH. MONITOR TF TOLERANCE, RESIDUALS, LYTES.
[2023-02-18 11:04] LABS: Glucose, Whole Blood 197 mg/dL (60-115)
[2023-02-18 14:52] VITALS: BP 147/65; PULSE 80; RESP 17; TEMP 36.4; O2SAT 96
[2023-02-18 16:14] LABS: Glucose, Whole Blood 211 mg/dL (60-115)
--- NOTE | 2023-02-18 16:48 | HO.PM.IMPN ---
Subjective Subjective Date of Service: 02/18/23 Interval History: dementia Review of Systems no new issues, remain very confused, intermittent agitation, has constant observer. Physical Exam Vital Signs: Vital Signs: Last Vital Signs Temp 97.5 F 02/18/23 14:52 Pulse 80 02/18/23 14:52 Resp 17 02/18/23 14:52 BP 147/65 H 02/18/23 14:52 Pulse Ox 96 02/18/23 14:52 O2 Del Method Room Air 02/18/23 14:52 O2 Flow Rate 2 01/30/23 15:52 BMI result Body Mass Index 19.6 General: very confused, agated Resp: CTA bilateral CVS: S1,S2,RRR GI: +BS, NT, no distention Skin: No rash Neuro: motor grossly intact Psych: appropriate affect Objective Data Active Medications Acetaminophen (Acetaminophen 325 Mg Tablet) 650 mg G-TUBE Q6H PRN PRN Reason: Pain, Mild (Pain Scale 1-3) Bacitracin (Bacitracin Oint 14 Gm Tube) 1 appl TOPICAL BID [facility]; Protocol Last Admin: 02/18/23 09:55 Dose: 1 appl Documented By: LEANDRO Dextrose (Dextrose 50 % 25 Gm/50 Ml Syringe) 25 gm IVPUSH Q15M PRN; Protocol PRN Reason: per Hypoglycemia Standing Ord. Enoxaparin Sodium (Enoxaparin Sodium 40 Mg/0.4 Ml Syringe) 40 mg SUBCUT Q24H [facility] Last Admin: 02/18/23 09:30 Dose: 40 mg Documented By: LEANDRO Glucose (Glucose Gel 15 Gm Gel..Gram.) 15 gm PO Q15M PRN; Protocol PRN Reason: per Hypoglycemia Standing Ord. Last Admin: 02/08/23 11:18 Dose: 15 gm Documented By: BEBE Insulin Human Lispro (Insulin Lispro 100 Unit/Ml 3 Ml Vial) 0 unit SUBCUT Q6H [facility]; Protocol Last Admin: 02/18/23 16:30 Dose: 6 unit Documented By: LEANDRO Levothyroxine Sodium (Levothyroxine Sodium 25 Mcg Tablet) 25 mcg G-TUBE DAILY@0600 [facility] Last Admin: 02/18/23 05:20 Dose: 25 mcg Documented By: ASHLY Nystatin (Nystatin Cream 15 Gm Tube) 1 appl TOPICAL BID [facility]; Protocol Last Admin: 02/18/23 09:54 Dose: 1 appl Documented By: LEANDRO Ondansetron HCl (Ondansetron Hcl 4 Mg/2 Ml Vial) 4 mg IVPUSH Q8H PRN PRN Reason: Nausea and Vomiting Sodium Chloride (0.9 % Sodium Chloride Flush 3 Ml Syringe) 3 ml IVFLUSH QSHIFT [facility] Last Admin: 02/18/23 10:37 Dose: Not Given Documented By: LEANDRO Non-Admin Reason: No Access Tamsulosin HCl (Tamsulosin Hcl 0.4 Mg Capsule) 0.8 mg PO BEDTIME [facility] Last Admin: 02/17/23 20:28 Dose: Not Given Documented By: ASHLY Non-Admin Reason: unable to give trough peg per pharmacy Valproic Acid (Valproic Acid (As Sodium Salt) 250 Mg/5 Ml Solution) 125 mg G-TUBE BID [facility] Last Admin: 02/18/23 09:30 Dose: 125 mg Documented By: LEANDRO Labs 01/29/23 05:04 02/04/23 13:42 Labs: Laboratory Results - last 24 hr 02/17/23 02/18/23 02/18/23 23:04 05:12 10:56 POC Glucose 243 H 245 H 197 H 02/18/23 16:08 POC Glucose 211 H Assessment and Plan (1) Dementia: Status: Acute (2) Metabolic encephalopathy: Status: Acute Plan 82-year-old female found wandering outside her house brought to ER for confusion.? Agitated in route given ketamine with good effect.? Has remained somnolent but arousable throughout her ER stay.? Per staff is essentially advanced dementia as well and no helpful history could be obtained.? In the ER urine showed active sediment for which she was given empiric ceftriaxone.? She will be admitted to the general medical floor and followed there 1. Metabolic encephalopathy, initially thought to be related to uti which has been treated and she remains very confused but likely from dementia rather than encephalopathy moniter closely, continue constant observer on depakote for behaviour will check labs ,depakote levels /bmp in am. 2. E coli UTI (pansensitive) -completed antibiotics 3. MAURICIO--resolved. 4.Dysphagia--PEG on 01/29, tolerating feed 5. oral thrush oral hygiene completed fluconazole . 6. Diabetes/hyperglycemia--insulin Full code Lovenox need for inpt: needs long-term placement when bed available. Time Spent With Patient Time: Total time managing care of this patient today ____ minutes. Quality Stroke Does the patient have a stroke diagnosis?: No VTE Prior VTE?: No VTE Risk Level:: Medical - moderate - high VTE Device Contraindication: N/A - Device Ordered VTE Drug Contraindication: Treatment Not Indicated
[2023-02-18 18:56] VITALS: BP 146/70; PULSE 76; RESP 20; TEMP 36.2; O2SAT 98
[2023-02-18 22:52] LABS: Glucose, Whole Blood 212 mg/dL (60-115)
[2023-02-19 00:37] VITALS: BP 155/70; PULSE 79; RESP 18; TEMP 36.4; O2SAT 99
[2023-02-19 04:38] LABS: Glucose, Whole Blood 263 mg/dL (60-115)
[2023-02-19] MEDS: Insulin Lispro 100 UNIT/ML 3 ML VIAL SUBCUT ×4 (04:55→23:44)
[2023-02-19] MEDS: Levothyroxine Sodium 25 MCG TABLET G-TUBE (04:55)
--- NOTE | 2023-02-19 06:36 | PC.NURSE ---
Pt continues to tolerate PEG tube feeding. Assessed for residual at 2000, 0200, 0600 and consistently <5ml. Flushed with 120ml water at 0200.
[2023-02-19 06:57] LABS: Anion Gap 13 (12-20); Blood Urea Nitrogen 15 mg/dL (9-16); Calcium 9.9 mg/dL (8.4-10.2); Carbon Dioxide 29 mmol/L (22-29); Chloride 102 mmol/L (96-108); Creatinine Clr Calc Pharmacy 56.6; Estimated Glomerular Filt Rate > 60; Glucose Random 158 mg/dL (60-115); Potassium 3.7 mmol/L (3.3-5.1); Sodium 140 mmol/L (135-145)
[2023-02-19 07:45] VITALS: BP 126/70; PULSE 72; RESP 16; TEMP 36; O2SAT 96
[2023-02-19] MEDS: Enoxaparin Sodium 40 MG/0.4 ML SYRINGE SUBCUT (09:40)
[2023-02-19] MEDS: Bacitracin Oint 14 GM TUBE 1 APPL TOPICAL ×2 (09:41→20:50)
[2023-02-19] MEDS: Nystatin Cream 15 GM TUBE 1 APPL TOPICAL ×2 (09:41→20:50)
[2023-02-19 11:06] LABS: Glucose, Whole Blood 241 mg/dL (60-115)
--- NOTE | 2023-02-19 14:37 | HO.PM.IMPN ---
Subjective Subjective Date of Service: 02/19/23 Interval History: no new events Review of Systems seems more calm ,comfortable . no fevers Physical Exam Vital Signs: Vital Signs: Last Vital Signs Temp 96.8 F 02/19/23 07:45 Pulse 72 02/19/23 07:45 Resp 16 02/19/23 07:45 BP 126/70 02/19/23 07:45 Pulse Ox 96 02/19/23 07:45 O2 Del Method Room Air 02/19/23 07:45 O2 Flow Rate 2 01/30/23 15:52 BMI result Body Mass Index 19.6 General: very confused, but calm Resp: CTA bilateral CVS: S1,S2,RRR GI: +BS, NT, no distention Skin: No rash Neuro: motor grossly intact Psych: appropriate affect Objective Data Active Medications Acetaminophen (Acetaminophen 325 Mg Tablet) 650 mg G-TUBE Q6H PRN PRN Reason: Pain, Mild (Pain Scale 1-3) Bacitracin (Bacitracin Oint 14 Gm Tube) 1 appl TOPICAL BID ROSARIO; Protocol Last Admin: 02/19/23 09:41 Dose: 1 appl Documented By: JARED Dextrose (Dextrose 50 % 25 Gm/50 Ml Syringe) 25 gm IVPUSH Q15M PRN; Protocol PRN Reason: per Hypoglycemia Standing Ord. Enoxaparin Sodium (Enoxaparin Sodium 40 Mg/0.4 Ml Syringe) 40 mg SUBCUT Q24H [facility] Last Admin: 02/19/23 09:40 Dose: 40 mg Documented By: JARED Glucose (Glucose Gel 15 Gm Gel..Gram.) 15 gm PO Q15M PRN; Protocol PRN Reason: per Hypoglycemia Standing Ord. Last Admin: 02/08/23 11:18 Dose: 15 gm Documented By: BEBE Insulin Human Lispro (Insulin Lispro 100 Unit/Ml 3 Ml Vial) 0 unit SUBCUT Q6H ROSARIO; Protocol Last Admin: 02/19/23 12:44 Dose: 6 unit Documented By: JARED Levothyroxine Sodium (Levothyroxine Sodium 25 Mcg Tablet) 25 mcg G-TUBE DAILY@0600 [facility] Last Admin: 02/19/23 04:55 Dose: 25 mcg Documented By: ANA Nystatin (Nystatin Cream 15 Gm Tube) 1 appl TOPICAL BID [facility]; Protocol Last Admin: 02/19/23 09:41 Dose: 1 appl Documented By: JARED Ondansetron HCl (Ondansetron Hcl 4 Mg/2 Ml Vial) 4 mg IVPUSH Q8H PRN PRN Reason: Nausea and Vomiting Sodium Chloride (0.9 % Sodium Chloride Flush 3 Ml Syringe) 3 ml IVFLUSH QSHIFT [facility] Last Admin: 02/19/23 09:24 Dose: Not Given Documented By: JARED Non-Admin Reason: No Access Tamsulosin HCl (Tamsulosin Hcl 0.4 Mg Capsule) 0.8 mg PO BEDTIME [facility] Last Admin: 02/18/23 19:44 Dose: Not Given Documented By: ANA Non-Admin Reason: Unable to give via PEG Valproic Acid (Valproic Acid (As Sodium Salt) 250 Mg/5 Ml Solution) 125 mg G-TUBE BID [facility] Last Admin: 02/19/23 09:41 Dose: 125 mg Documented By: JARED Labs 01/29/23 05:04 02/19/23 05:49 Labs: Laboratory Results - last 24 hr 02/18/23 02/18/23 02/19/23 16:08 22:47 04:25 Anion Gap Estim Creat Clear Calc Estimated GFR POC Glucose 211 H 212 H 263 H Random Glucose Calcium Valproic Acid 02/19/23 02/19/23 05:49 10:53 Anion Gap 13 Estim Creat Clear Calc 56.6 Estimated GFR > 60 POC Glucose 241 H Random Glucose 158 H Calcium 9.9 D Valproic Acid 18.0 L Assessment and Plan (1) Major neurocognitive disorder: Status: Acute Plan 82-year-old female found wandering outside her house brought to ER for confusion.? Agitated in route given ketamine with good effect.? Has remained somnolent but arousable throughout her ER stay.? Per staff is essentially advanced dementia as well and no helpful history could be obtained.? In the ER urine showed active sediment for which she was given empiric ceftriaxone.? She will be admitted to the general medical floor and followed there 1. Metabolic encephalopathy, persistent despite treatment for UTI. Suspect underlying cognitive impairment (dementia with behavior disturbance) that maybe permanent at this time. Control agiation as needed. Continue Depakote . she is more calm today,will moniter her without observer psych follow up. 2. E coli UTI (pansensitive) -completed antibiotics 3. MAURICIO--resolved. 4.Dysphagia--PEG on 01/29, tolerating feed 5. oral thrush oral hygene on fluconazole (02/03) 6. Diabetes/hyperglycemia--insulin labs from today bmp seems fine . Full code Lovenox need for inpt: placement, can revisit code status with if he' open to it Time Spent With Patient Time: Total time managing care of this patient today ____ minutes. Quality Stroke Does the patient have a stroke diagnosis?: No VTE Prior VTE?: No VTE Risk Level:: Medical - moderate - high VTE Device Contraindication: N/A - Device Ordered VTE Drug Contraindication: Treatment Not Indicated
--- NOTE | 2023-02-19 15:42 | MHC.CM.PN ---
CM RECEIVED A CALL FROM WHO STATES HE WILL BE BRINGING IN MORE PAPERWORK FOR [facility] AND THAT HE WILL BE TOURING LOCAL FACILITIES . EXPLAINED TO SPOUSE THAT REFERRALS HAD BEEN PLACED AND NO BED OFFERS WERE MADE. AFTER SPEAKING WITH SPOUSE, RECEIVED CORRESPONDENCE FROM [facility] THAT THEY CAN OFFER A BED IF SPOUSE CAN ACCOMPANY TO SIGN PAPERWORK. RETURN CALL MADE TO SPOUSE DARLING, NO ANSWER AND MAILBOX FULL. CM WILL CONTINUE TO ATTEMPT TO REACH DARLING
[2023-02-19 15:58] VITALS: BP 120/78; PULSE 87; RESP 16; TEMP 36.2; O2SAT 98
[2023-02-19 17:48] LABS: Glucose, Whole Blood 181 mg/dL (60-115)
[2023-02-19 20:30] VITALS: BP 136/60; PULSE 70; RESP 18; TEMP 36.2; O2SAT 98
[2023-02-19 23:36] LABS: Glucose, Whole Blood 252 mg/dL (60-115)
[2023-02-20 03:20] VITALS: BP 102/57; PULSE 106; RESP 16; TEMP 36.3; O2SAT 95
[2023-02-20 03:53] VITALS: PULSE 80
[2023-02-20] MEDS: Insulin Lispro 100 UNIT/ML 3 ML VIAL SUBCUT (05:31)
[2023-02-20] MEDS: Levothyroxine Sodium 25 MCG TABLET G-TUBE (05:31)
[2023-02-20 05:34] LABS: Glucose, Whole Blood 227 mg/dL (60-115)
[2023-02-20 07:25] VITALS: BP 104/59; RESP 12; TEMP 36.3; O2SAT 98
--- NOTE | 2023-02-20 09:55 | MHC.CM.PN ---
DP: PT HAS BEEN MEDICALLY CLEARED FOR DC TO STR AT [facility]. SPOUSE/HCP DARLING IS AWARE AND AGREEABLE TO PLAN. SPOUSE WILL MEET PT AT CENTER TO SIGN HER IN. RN AWARE. CENTER REQUESTING FORMULA BE SENT TO COVER A DAY OR 2 SO IT CAN BE ORDERED. MD AWARE OF PLAN. S TRANSPORT BOOKED FOR 11 AM VIA [employer]. IMM ADDRESSED.
--- NOTE | 2023-02-20 09:56 | PM.DS ---
DS: Providers Provider Date of Service: 02/20/23 Date of admission: 01/23/23 13:19 Date of discharge: 02/20/23 Primary care physician: Dilshad Mercedes MD Admitting clinician: Joann Castaneda Attending physician on admission: Joann Castaneda Consults: 01/22/23 16:00 Consult to Care Team Stat Comment: Reason for consultation: wandering, agitation, had to be given ketamine by EMS 01/26/23 15:54 Consult to General Surgery Routine Consulting Provider: Kvng Munson Reason for consultation: g tube Has provider been notified: No Consult to Nephrology Routine Consulting Provider: Drake Rosales Reason for consultation: mauricio on ckd 02/08/23 10:30 Consult for Sitter Routine Reason for consultation: dementia with bahviour disturbances Has provider been notified: No 02/09/23 14:17 Consult to Psychiatry Routine Consulting Provider: Psych Covering Reason for consultation: dementia with beahviour disturbances Has provider been notified: No 02/17/23 09:56 Consult to Urology Routine Consulting Provider: [facility] Reason for consultation: Urinary retention DS: Diagnosis Discharge Diagnosis (1) Major neurocognitive disorder: Status: Acute DS: Summary Hospital Course Hospital Course: 82 yo female with undiagnosed cognitive impairment, prior UTI not on any? medications and doesn't seem to follow up with her doctor. Has had increasing behavior but also a cycle per her left the house this AM disheveled and unkempt feet covered in stool. She has no signs of trauma. was agitated with EMS and given 120mg ketamine IM en route. In ER initially required a sitter however will has been somnolent for the last shift. Will be admitted to general floor hospital course: Patient was admitted to the hospital initially for confusion-thought to be toxic metabolic says encephalopathy,uti : Subsequently patient was started on IV antibiotics for UTI. Patient completed antibiotic course. Patient also had dysphagia and underlying dementia unspecified-subsequently patient required PEG tube placement, currently on tube feeds. Due to dementia and behavioral disturbances-added Depakote p.r.n., consider outpatient psych evaluation if needed . for oral thrush completed fluconazole treatment, continue oral hygene . Patient was also had hypothyroidism-on levothyroxine, repeat TSH in 1 week. Patient also has diabetes type 2: Continue sliding scale coverage, repeat hemoglobin A1c outpatient , add Lantus 8unit needed.last hba1c levels 11.5(01/26/23). MAURICIO on CKD stage 3: Creatinine improved to baseline with hydration. Above management discussed with patient a spent in detail length, he understand and in agreement with the plan, time spent 50 minute. Time Spent with Patient Time attestation: Total time managing care of this patient today ____ minutes. Discharge coordination time: Greater than 30 minutes Quality: Safe Use of Opioids Does Pt have an Active Cancer Diagnosis on the Problem List?: No Quality: Stroke Does the patient have a stroke diagnosis?: No Physical Exam Vital Signs: Vital Signs: Last Vital Signs Temp 97.3 F 02/20/23 07:25 Pulse 80 02/20/23 03:53 Resp 12 02/20/23 07:25 BP 104/59 L 02/20/23 07:25 Pulse Ox 89 L 02/20/23 07:25 O2 Del Method Room Air 02/20/23 07:25 O2 Flow Rate 2 01/30/23 15:52 BMI result Body Mass Index 19.6 General: dementia, but calm Resp: CTA bilateral CVS: S1,S2,RRR GI: +BS, NT, no distention Skin: No rash Neuro: motor grossly intact Psych: appropriate affect DS: Data Data Completed and Pending Labs on day of discharge: Laboratory Results - last 24 hr 02/19/23 02/19/23 02/19/23 10:53 17:27 23:31 POC Glucose 241 H 181 H 252 H 02/20/23 05:15 POC Glucose 227 H Imaging Chest x-ray: Radiologist's impression: ITS Impressions Head CT 01/22/23 11:39 IMPRESSION: No acute intracranial pathology. Discharge Plan Discharge Anticipated Discharge Date/Time: 02/20/23 09:34 Patient Disposition: Home, Self-Care Discharge Diagnosis: uti ,mauricio,dementia , hypothyroidism [facility] [Other] - 1 Week (TRANSFER FOR SHORT TERM REHAB) Dilshad Mercedes MD [Primary Care Provider] - 1 Week Discharge Medications: New levothyroxine 25 mcg Tablet 25 mcg G-tube DAILY@0600 Qty: 1 0RF tamsulosin 0.4 mg Capsule 0.8 mg PO BEDTIME Qty: 1 0RF insulin lispro [Humalog U-100 Insulin] 100 unit/mL Solution See Protocol subcut Q6H Qty: 1 0RF Protocol: Insulin Correction Scale Less than or equal to 110 ---- Give (units): 0 111 to 150 Give (units): 0 151 to 200 Give (units): 2 201 to 250 Give (units): 6 251 to 300 Give (units): 8 301 to 350 Give (units): 10 Greater than 350 Give (units): 12 Call MD if Blood Glucose > : 350 valproic acid (as sodium salt) 250 mg/5 mL (5 mL) Solution 125 mg G-tube DAILY Qty: 1 0RF insulin glargine [Lantus U-100 Insulin] 100 unit/mL solution 8 unit subcut QPM Qty: 1 0RF Changed aspirin 325 mg Tablet,Delayed Release (Dr/Ec) 650 mg PO DAILY PRN (Reason: Chest Pain) Qty: 1 0RF Discharge Orders: Discharge Order (Routine); Ordered 02/20/23 Ordered By: Joann Castaneda Diet: Advance to usual diet Activity on Discharge: As tolerated Stand Alone Forms: Patient Portal Discharge page, Work/School Release Care Plan Goals: Patient was admitted to the hospital initially for confusion-thought to be toxic metabolic says encephalopathy,uti : Subsequently patient was started on IV antibiotics for UTI. Patient completed antibiotic course. Patient also had dysphagia and underlying dementia unspecified-subsequently patient required PEG tube placement, currently on tube feeds. Due to dementia and behavioral disturbances-added Depakote p.r.n., consider outpatient psych evaluation if needed . for oral thrush completed fluconazole treatment, continue oral hygene . Patient was also had hypothyroidism-on levothyroxine, repeat TSH in 1 week. Patient also has diabetes type 2: Continue sliding scale coverage, repeat hemoglobin A1c outpatient , add Lantus 8unit needed.last hba1c levels 11.5(01/26/23). MAURICIO on CKD stage 3: Creatinine improved to baseline with hydration. Above management discussed with patient a spent in detail length, he understand and in agreement with the plan, time spent 50 minute. Health Concerns: As above. Plan of Treatment: As above. Assessment: As above.
[2023-02-20] MEDS: Enoxaparin Sodium 40 MG/0.4 ML SYRINGE SUBCUT (10:33)
[2023-02-20] MEDS: Bacitracin Oint 14 GM TUBE 1 APPL TOPICAL (10:34)
[2023-02-20] MEDS: Nystatin Cream 15 GM TUBE 1 APPL TOPICAL (10:34)
[2023-02-20] MEDS: Insulin Glargine,Hum.rec.anlog 100 UNIT/ML 10 ML VIAL 8 UNIT SUBCUT (10:35)
== END 2023-02-20 11:30 | disposition home or self-care (01) | DRG 689 ==
LOC: HO.ED 01-23 07:24 → HO.EDOVER 01-23 13:26 → HO.S3 01-23 13:42
PROVIDERS: Hospitalist; Internal Medicine; Social Worker; Surgery; Admitting Provider Hospitalist; Emergency Provider Emergency Medicine; PCP Family Medicine; Visit Provider Internal Medicine
PROC: 0DH63UZ Insertion of Feeding Device into Stomach, Percutaneous Approach (ICD-10-PCS; CPT 43246; principal; 2023-01-29 10:10)
DX: N39.0 Urinary tract infection, site not specified (principal); G93.41 Metabolic encephalopathy; E87.0 Hyperosmolality and hypernatremia; N17.9 Acute kidney failure, unspecified; F03.911 Unspecified dementia, unspecified severity, with agitation; B37.0 Candidal stomatitis; N18.30 Chronic kidney disease, stage 3 unspecified; E03.9 Hypothyroidism, unspecified; E11.22 Type 2 diabetes mellitus with diabetic chronic kidney disease; R13.10 Dysphagia, unspecified; B96.20 Unspecified Escherichia coli [E. coli] as the cause of diseases classified elsewhere; E11.65 Type 2 diabetes mellitus with hyperglycemia; E86.0 Dehydration; R33.9 Retention of urine, unspecified; E87.6 Hypokalemia; Z91.83 Wandering in diseases classified elsewhere; Z87.891 Personal history of nicotine dependence; Z90.5 Acquired absence of kidney; Z75.1 Person awaiting admission to adequate facility elsewhere; Z79.4 Long term (current) use of insulin; Z79.82 Long term (current) use of aspirin; Z79.890 Hormone replacement therapy; Z79.899 Other long term (current) drug therapy
CPT/HCPCS: 36415; 70450; 74018; 80048; 80053; 80076; 80143; 80164; 80179; 80307; 81001; 82140; 82550; 82947; 83036; 83735; 84443; 85025; 85027; 87040; 87086; 87088; 87147; 87186; 92610; 93005; 99285; C1758; J0131; J0696; J1450; J1650; J2060; J2405

== ENCOUNTER → 2023-01-23 13:19 | Outpatient (BNV) | payer MEDICARE, SELFPAY | PROVIDERS: Admitting Provider Hospitalist; Emergency Provider Emergency Medicine; PCP Family Medicine; Visit Provider Surgery | DX: F03.911 Unspecified dementia, unspecified severity, with agitation (principal); G93.41 Metabolic encephalopathy | CPT/HCPCS: 43246; 99231; 99232; 99499 ==

== ENCOUNTER → 2023-01-23 13:19 | Outpatient (BNV) | payer MEDICARE, SELFPAY | PROVIDERS: Admitting Provider Hospitalist; Emergency Provider Emergency Medicine; PCP Family Medicine; Visit Provider Hospitalist | DX: F03.911 Unspecified dementia, unspecified severity, with agitation (principal); G93.41 Metabolic encephalopathy | CPT/HCPCS: 99223; 99231; 99232; 99233; 99239 ==

== ENCOUNTER → 2023-01-23 13:19 | Outpatient (BNV) | payer MEDICARE, SELFPAY | PROVIDERS: Admitting Provider Hospitalist; Emergency Provider Emergency Medicine; PCP Family Medicine; Visit Provider Social Worker | DX: F03.90 Unspecified dementia, unspecified severity, without behavioral disturbance, psychotic disturbance, mood disturbance, and anxiety (principal) | CPT/HCPCS: 99232; 99499 ==

== ENCOUNTER → 2023-01-23 13:19 | Outpatient (BNV) | payer MEDICARE, SELFPAY | PROVIDERS: Admitting Provider Hospitalist; Emergency Provider Emergency Medicine; PCP Family Medicine; Visit Provider Urology | DX: R33.9 Retention of urine, unspecified (principal); F03.911 Unspecified dementia, unspecified severity, with agitation; R53.1 Weakness; Z87.440 Personal history of urinary (tract) infections | CPT/HCPCS: 99222 ==